=== PATIENT | male | born 1945 | race Caucasian/White ===

== ENCOUNTER → 2016-03-17 | Outpatient (CLI) | payer OTHER ==
[~2016-03-17] MED LIST: ACET-1256 PO; ALLO100T PO; ASPEC81 PO; ATOR10TA88 PO; DILT360C17 PO; LPR100 PO; LSX20 PO; POTA20TA16 PO; RANI150T3 PO; SPIR50TA PO; WARF5TAB7 PO; WARF7.5T4 PO
--- NOTE | 2016-03-17 13:30 | DIAGNOSTIC IMAGING REPORT ---
CHEST 2 VIEWS ROUTINE CLINICAL HISTORY: Fall. Chest pain with inspiration. COMPARISON STUDY: Chest radiograph October 10, 2015. FINDINGS: There is no pneumothorax or pleural effusion. Mild cardiomegaly is unchanged. There is no evidence of pulmonary edema. No consolidation is present. IMPRESSION: 1. No acute cardiopulmonary findings. 2. Mild cardiomegaly. Electronically signed by: Sumanth Amaya M.D. 03/17/2016 1:28 PM Dictated Date/Time: 03/17/2016 1:27 PM
== END | disposition home or self-care (01) ==
LOC: C.RAD 12:57
PROVIDERS: ATTEND Family Medicine
DX: R07.81 Pleurodynia (principal); R07.89 Other chest pain; I51.7 Cardiomegaly

== ENCOUNTER → 2016-04-04 | Outpatient (CLI) | payer OTHER ==
--- NOTE | 2016-04-04 14:47 | DIAGNOSTIC IMAGING REPORT ---
RIBS UNILATERAL WITH PA CHEST CLINICAL HISTORY: CHEST WALL PAIN R07.89;PLEURITUC CHEST PAIN R07.81 pain COMPARISON STUDY: 03/17/2016 FINDINGS: Findings of nondisplaced cortical fractures left eighth ninth and 10th ribs. Remaining ribs are unremarkable. No evidence pneumothorax. No evidence for cardiac enlargement. IMPRESSION: Nondisplaced cortical fractures left eighth ninth and 10th ribs. No evidence pneumothorax. Electronically signed by: Jaime Arredondo M.D. 04/04/2016 2:46 PM Dictated Date/Time: 04/04/2016 2:44 PM
== END | disposition home or self-care (01) ==
LOC: C.RAD 14:07
PROVIDERS: ATTEND Family Medicine
DX: R07.89 Other chest pain (principal); R07.81 Pleurodynia; S22.42XA Multiple fractures of ribs, left side, initial encounter for closed fracture; X58.XXXA Exposure to other specified factors, initial encounter

== ENCOUNTER → 2016-08-01 | Outpatient (CLI) | payer OTHER ==
[~2016-08-01] MED LIST changes: +ATOR10TA82 PO; -ATOR10TA88 PO
[2016-08-01 17:24] LABS: CHOLESTEROL/HDL RATIO 3.7
== END | disposition home or self-care (01) ==
LOC: C.LABBFT 12:50
PROVIDERS: ATTEND Internal Medicine Cardiovascular Disease
DX: I10 Essential (primary) hypertension (principal); E78.00 Pure hypercholesterolemia, unspecified

== ENCOUNTER → 2017-06-25 | Day surgery (SDC) | payer OTHER ==
[2017-06-18 10:52] VITALS: BMI 27.0
[~2017-06-25] VITALS: Ht 172.7 cm; Wt 80.0 kg
[~2017-06-25] MED LIST changes: +ALL300 PO; -ALLO100T PO; +AMT50 PO; -ASPEC81 PO; +ASPI81CH2 PO; +ATOR-24 PO; -ATOR10TA82 PO; +COLC1TAB25 PO; +LIDOCAINE HCL 2% 2 ML VIAL (20MG/ML) ONE; +MULTCHW PO; +POTA-639 PO; -POTA20TA16 PO; +PROPOFOL IV EMULSION 10 MG/ML 20 ML VIAL ONE; +SODIUM CHLORIDE 0.9% 500ML 500 ML IV ONE
[2017-06-25 13:31] VITALS: Ht 172.7 cm; Wt 80.0 kg
[2017-06-25 14:04] VITALS: TEMP 36.8
--- NOTE | 2017-06-25 14:32 | Endo History and Physical ---
History & Physical Date of Service: June 25, 2017. Chief Complaint: SCREENING Referring Physician: DR. RAYMOND/CAMERON LYON DR. History of Present Illness 72 yo CF who presents for screening colonoscopy. Past Medical History Arthritis, Anxiety, Hypertension, Other Past Surgical History Hx Cardiac Surgery: No Hx Internal Defibrillator: No Hx Pacemaker: No Hx Abdominal Surgery: No Hx of Implantable Prosthesis: No Hx Post-Op Nausea and Vomiting: No Hx Cancer Surgery: No Hx Thoracic Surgery: No Hx Orthopedic: No Hx Urinary Tract Surgery: No Family History None Social History Smoking Status: Never Smoker Hx Substance Use: No Hx Alcohol Use: Yes (A COUPLE BEERS/WK AND A SHOT OF DEREK MARIVEL ABOUT TWICE/ YR) Allergies Coded Allergies: No Known Allergies (Unverified , 06/25/17) Current Medications Reported Home Medications Medications Dose Route/Sig Max Daily Dose Days Date Category Dose Instructions Centrum Silver (Multiple Vitamins W/ Minerals) 1 Chw Chw 1 Tab PO DAILY 06/18/17 Reported Colchicine 0.6 Mg Tab 1 Tab PO DAILY PRN 06/18/17 Reported Elavil (Amitriptyline HCl) 50 Mg Tab 50 Mg PO HS 06/18/17 Reported Aspirin 81 Mg Chw 1 Tab PO DAILY 30 06/18/17 Reported Lipitor (Atorvastatin Calcium) 40 Mg Tab 1 Tab PO HS 90 06/18/17 Reported Allopurinol 300 Mg Tab 1 Tab PO DAILY 06/18/17 Reported Tylenol (Acetaminophen) 500 Mg Tab 1,000 Mg PO QAM 11/16/15 Reported Jantoven (Warfarin Sodium) 7.5 Mg Tab 7.5 Mg PO MWF 11/16/15 Reported Jantoven (Warfarin Sodium) 5 Mg Tab 5 Mg PO 4XWK 11/16/15 Reported THURSDAY, THURSDAY, THURSDAY AND THURSDAY Aldactazide 25MG/25MG (HCTZ/Spironolactone) 1 Tab Tab 1 Tab PO QAM 11/16/15 Reported Furosemide 20 Mg Tab 20 Mg PO DAILY 30 10/15/15 Rx Zantac (Ranitidine HCl) 150 Mg Tab 1 Tab PO BID 90 10/10/15 Reported Klor-Con (Potassium Chloride) 20 Meq Tabcr 20 Meq PO DAILY 10/10/15 Reported Cardizem Cd (Diltiazem Hcl Coated Beads) 360 Mg Cap 360 Mg PO DAILY 12/03/13 Rx Metoprolol Tartrate 100 Mg Tab 100 Mg PO BID 12/03/13 Rx Vital Signs Weight (Kilograms): 80.00 Height (Feet): 5 Height (Inches): 8 Date Time Temp Pulse Resp B/P (MAP) Pulse Ox O2 Delivery O2 Flow Rate FiO2 06/25/17 14:04 36.8 88 20 116/88 (97) 94 Room Air Physical Exam General Appearance: WD/WN, no apparent distress Respiratory/Chest: Auscultation: breath sounds normal Cardiovascular: Heart Auscultation: RRR Abdomen: Bowel Sounds: normal Inspection & Palpation: soft, non-distended, no tenderness, guarding & rebound Assessment and Plan Assessment: 72 yo CF who presents for screening colonoscopy. Plan: Proceed with colonoscopy.
--- NOTE | 2017-06-25 15:05 | Discharge Instructions ---
Endoscopy Patient Instructions Date / Procedure(s) Performed June 25, 2017. Colonoscopy Allergy Information Coded Allergies: No Known Allergies (Unverified , 06/25/17) Discharge Date / Findings June 25, 2017. Rectal polyp Diverticulosis Internal hemorrhoids Medication Instructions Stopped Medication(s): COUMADIN ASA OK to resume all medications today as prescribed Reported Home Medications Medications Dose Route/Sig Max Daily Dose Days Date Category Dose Instructions Centrum Silver (Multiple Vitamins W/ Minerals) 1 Chw Chw 1 Tab PO DAILY 06/18/17 Reported Colchicine 0.6 Mg Tab 1 Tab PO DAILY PRN 06/18/17 Reported Elavil (Amitriptyline HCl) 50 Mg Tab 50 Mg PO HS 06/18/17 Reported Aspirin 81 Mg Chw 1 Tab PO DAILY 30 06/18/17 Reported Lipitor (Atorvastatin Calcium) 40 Mg Tab 1 Tab PO HS 90 06/18/17 Reported Allopurinol 300 Mg Tab 1 Tab PO DAILY 06/18/17 Reported Tylenol (Acetaminophen) 500 Mg Tab 1,000 Mg PO QAM 11/16/15 Reported Jantoven (Warfarin Sodium) 7.5 Mg Tab 7.5 Mg PO MWF 11/16/15 Reported Jantoven (Warfarin Sodium) 5 Mg Tab 5 Mg PO 4XWK 11/16/15 Reported THURSDAY, THURSDAY, THURSDAY AND THURSDAY Aldactazide 25MG/25MG (HCTZ/Spironolactone) 1 Tab Tab 1 Tab PO QAM 11/16/15 Reported Furosemide 20 Mg Tab 20 Mg PO DAILY 30 10/15/15 Rx Zantac (Ranitidine HCl) 150 Mg Tab 1 Tab PO BID 90 10/10/15 Reported Klor-Con (Potassium Chloride) 20 Meq Tabcr 20 Meq PO DAILY 10/10/15 Reported Cardizem Cd (Diltiazem Hcl Coated Beads) 360 Mg Cap 360 Mg PO DAILY 12/03/13 Rx Metoprolol Tartrate 100 Mg Tab 100 Mg PO BID 12/03/13 Rx Provider Instructions Activity Restrictions - No exercising or heavy lifting for 24 hours. - Do not drink alcohol the day of the procedure. - Do not drive a car or operate machinery until the day after the procedure. - Do not make any important decisions or sign important papers in 24 hours after the procedure. Following Day: - Return to full activity which may include returning to work/school. Diet Start your diet with liquids and light foods (jello, soup, juice, toast). Then eat your usual diet if not nauseated. Treatment For Common After Affects For mild abdominal pain, bloating, or excessive gas: - Rest - Eat lightly - Lie on right side Follow-Up Information Follow-up with DR. RAYMOND/CAMERON LYON DR. as scheduled Anesthesia Information What You Should Know You have had a procedure that required some medicine to reduce anxiety and discomfort. This treatment is called moderate sedation. After receiving the treatment, you may be sleepy, but you will be able to breathe on your own. The effects of the treatment may last for several hours. Follow these instructions along with Activity/Diet recommendations noted above: * Do NOT do anything where dizziness or clumsiness would be dangerous. * Rest quietly at home today, then you can be up and about tomorrow. * Have a responsible person stay with you the rest of today. * You may have had an I.V. today. If so, you may take the dressing off later today. Recommendations Call your doctor if: * Trouble breathing * Continuous vomiting for more than 24 hours * Temperature above 101 degrees * Severe abdominal pain or bloating * Pain not relieved by pain medicine ordered * There is increased drainage or redness from any incision * A large amount of rectal bleeding greater than 2-3 tablespoons. (If you had a polyp/s removed or have hemorrhoids, a small amount of blood - from the rectum is to be expected.) * You have any unanswered questions or concerns. IN THE EVENT OF A SERIOUS EMERGENCY, GO TO THE NEAREST EMERGENCY ROOM Your discharge instructions were prepared by provider Leandro Maguire. Patient Instructions Signature Page Mathew Virk Patient (or Guardian) Signature/Date: I have read and understand the instructions given to me by my caregivers. Caregiver/RN/Doctor Signature/Date: The above-named patient and/or guardian has received patient instructions on this date. + Original Patient Signature Page (only) stays with chart. Please make copy for patient.
--- NOTE | 2017-06-25 15:09 | GI REPORT ---
Patient Name: Mathew Virk Procedure Date: 06/25/2017 2:38 PM Date of : 1945 Admit Type: Outpatient Age: 72 Gender: Male Attending MD: Leandro Maguire DO Procedure: Colonoscopy Providers: Leandro Maguire DO Referring MD: Kim Sung Indications: Screening for colorectal malignant neoplasm Medicines: Monitored Anesthesia Care Complications: No immediate complications. Estimated Blood Loss: Estimated blood loss: none. Procedure: Pre-Anesthesia Assessment: - Prior to the procedure, a History and Physical was performed, and patient medications and allergies were reviewed. The patient's tolerance of previous anesthesia was also reviewed. The risks and benefits of the procedure and the sedation options and risks were discussed with the patient. All questions were answered, and informed consent was obtained. Prior Anticoagulants: The patient last took aspirin 4 days and Coumadin (warfarin) 5 days prior to the procedure. ASA Grade Assessment: III - A patient with severe systemic disease. After reviewing the risks and benefits, the patient was deemed in satisfactory condition to undergo the procedure. After I obtained informed consent, the scope was passed under direct vision. Throughout the procedure, the patient's blood pressure, pulse, and oxygen saturations were monitored continuously. The scope was introduced through the anus and advanced to the terminal ileum. The colonoscopy was performed without difficulty. The patient tolerated the procedure well. The quality of the bowel preparation was good. The terminal ileum, ileocecal valve, appendiceal orifice, and rectum were photographed. Findings: The perianal and digital rectal examinations were normal. Multiple small-mouthed diverticula were found in the sigmoid colon. A 5 mm polyp was found in the rectum. The polyp was sessile. The polyp was removed with a hot snare. Resection and retrieval were complete. Non-bleeding internal hemorrhoids were found during retroflexion. The hemorrhoids were small. Impression: - Diverticulosis in the sigmoid colon. - One 5 mm polyp in the rectum, removed with a hot snare. Resected and retrieved. - Non-bleeding internal hemorrhoids. Recommendation: - Resume previous diet. - Continue present medications. - Repeat colonoscopy for surveillance based on pathology results. - Return to primary care physician as previously scheduled. Leandro Maguire DO 06/25/2017 3:09:30 PM This report has been signed electronically. Note Initiated On: 06/25/2017 2:38 PM Number of Addenda: 0 I attest to the content of the Intraoperative Record and orders documented therein, exceptions below {[id number]}
--- NOTE | 2017-06-25 15:10 | Anesthesiology Progress Note ---
Anesthesia Post Op Note Date & Time June 25, 2017 at 15:10 Vital Signs Pain Intensity: 0 Vital Signs Past 12 Hours Date Time Temp Pulse Resp B/P (MAP) Pulse Ox O2 Delivery O2 Flow Rate FiO2 06/25/17 15:04 87 20 110/81 (91) 94 Room Air 06/25/17 14:04 36.8 88 20 116/88 (97) 94 Room Air Notes Mental Status: alert / awake / arousable, participated in evaluation Pt Amnestic to Procedure: Yes Nausea / Vomiting: adequately controlled Pain: adequately controlled Airway Patency, RR, SpO2: stable & adequate BP & HR: stable & adequate Hydration State: stable & adequate Anesthetic Complications: no major complications apparent
[2017-06-25 15:21] VITALS: BP 117/86; PULSE 88; O2SAT 94
== END | disposition home or self-care (01) ==
LOC: C.GI 13:19
PROVIDERS: ATTEND Internal Medicine
DX: Z12.11 Encounter for screening for malignant neoplasm of colon (principal); K63.5 Polyp of colon; K57.30 Diverticulosis of large intestine without perforation or abscess without bleeding; K64.8 Other hemorrhoids; M19.90 Unspecified osteoarthritis, unspecified site; F41.9 Anxiety disorder, unspecified; I10 Essential (primary) hypertension; E78.5 Hyperlipidemia, unspecified; G47.33 Obstructive sleep apnea (adult) (pediatric); Z79.01 Long term (current) use of anticoagulants; Z86.718 Personal history of other venous thrombosis and embolism

== ENCOUNTER 2018-05-03 18:10 | Inpatient (IN) ==
[2018-05-03 21:00] LABS: Basophils # (auto) 0.01 K/uL (0-0.2); Basophils % (auto) 0.2 %; Eosinophils # (auto) 0.13 K/uL (0-0.5); Eosinophils % (auto) 2.2 %; Hemoglobin 15.6 g/dL (14.0-18.0); Lymphocytes # (auto) 1.51 K/uL (1.2-3.4); Lymphocytes % (auto) 25.9 %; Mean Corpuscular Hgb Conc 35.5 g/dL (32-36); Mean Corpuscular Volume 90.5 fL (80-100); Mean Platelet Volume 11.2 fL (7.4-10.4); Monocytes % (auto) 13.7 %; Neutrophils # (auto) 3.38 K/uL (1.4-6.5); Platelet Count 165 K/uL (130-400); RDW Coefficient of Variation 14.1 % (11.5-14.5); RDW Standard Deviation 46.1 fL (36.4-46.3); Red Blood Count 4.86 M/uL (4.7-6.1); White Blood Count 5.83 K/uL (4.8-10.8)
[2018-05-03 21:12] LABS: INR 1.1 (0.9-1.1); Partial Thromboplastin Ratio 1.1; Partial Thromboplastin Time 29.9 Seconds (21.0-31.0); Prothrombin Time 10.9 Seconds (9.0-12.0)
--- NOTE | 2018-05-03 21:15 | XRay Report ---
XR chest 1V portable CLINICAL HISTORY: gi bleed COMPARISON STUDY: Chest radiograph April 04, 2016. FINDINGS: Kyphotic positioning is noted. There is no pneumothorax or pleural effusion. There is no co nsolidation or evidence for pulmonary edema. Borderline cardiomegaly is unchanged. Degenerative lux es of both glenohumeral joints, more severe on the right, is again noted. IMPRESSION: No acute cardiopulmonary findings. Electronically signed by: Sumanth Amaya M.D. 05/03/2018 9:14 PM
[2018-05-03 21:16] LABS: Albumin Level 3.6 gm/dl (3.4-5.0); BUN Creatinine Ratio 22.4 (10-20); Creatinine Clr Calc Pharmacy 30.9 ml/min; Est GFR (African American) 24.7; Est GFR (Non-African American) 21.3; Potassium 4.1 mmol/L (3.5-5.1)
[2018-05-03 21:19] LABS: Bilirubin,Total 0.5 mg/dl (0.2-1); Globulin 3.6 gm/dl (2.5-4.0); Total Protein 7.2 gm/dl (6.4-8.2)
[2018-05-03] MEDS ORDERED: PANTOprazole 80 MG in DEXTROSE 5% 100 ML IV ONE (21:24)
[2018-05-03] MEDS ORDERED: PANTOPRAZOLE BOLUS/DRIP 1 EA IV STA (21:24)
[2018-05-03] MEDS ORDERED: PANTOprazole 40 MG in DEXTROSE 5% 100 ML IV SCH (21:30)
--- NOTE | 2018-05-03 23:06 | Emergency Department Note ---
Entered by Chelsea Piper acting as a scribe for ED Provider Note CHIEF COMPLAINT: GI bleed HISTORY OF PRESENT ILLNESS: The patient is a 72 year old male who presents to the Emergency Room with complaints of constant stomach upset, heart burn and reflux that started a few days ago. The patient reports he threw up Thursday. He notes he has diarrhea that is black and tarry. The patient reports he tried baking soda and pepto- bismol. The patient states he is on anticoagulation. He reports he has no history of ulcers or GI bleed. He states he has history of atrial fibrillation. The patient states he was sent here by [facility] because they were concerned for GI bleeding. Pt denies LOC, headache, fevers, chills, diaphoresis, visual changes, neck pain, chest pain, breathing difficulties, nausea, back pain, hematochezia, urinary symptoms, numbness, weakness, lymphadenopathy, rash, or other complaints. REVIEW OF SYSTEMS: See HPI for pertinent positives and negatives. A total of ten systems were reviewed and were otherwise negative. PMHx/PSHx: Pituitary tumor Atrial fibrillation with RVR Cellulitis Chest pain SOCIAL HISTORY: Patient lives at home. PHYSICAL EXAM: GENERAL: Awake, alert, well-appearing, in no distress HENT: Normocephalic, atraumatic. Oropharynx unremarkable. EYES: Normal conjunctiva. Sclera non-icteric. NECK: Inspection normal. Non-tender. Supple. No nuchal rigidity. FROM. No masses. RESPIRATORY: Clear to auscultation. No wheezes. No rales. Normal respiratory effort. CARDIAC: Normal rate. Normal rhythm. No murmurs. No rubs. Extremities warm and well perfused. Pulses equal. No JVD. GI: Soft, non-distended. Mild tenderness in the epigastrium. No rebound or guarding. No masses. RECTAL: Melanotic stool. Hemoccult positive MUSCULOSKELETAL: Atraumatic. Chest examination reveals no tenderness. The back is symmetrical on inspection without obvious abnormality. There is no CVA tenderness to palpation. No joint edema. LOWER EXTREMITIES: Calves are equal size bilaterally and non-tender. +1 edema. Chronic venous discoloration. NEURO: Normal sensorium. No sensory or motor deficits noted. SKIN: No rash or jaundice noted. EMERGENCY DEPARTMENT COURSE: 2022: Past medical records reviewed. The patient was evaluated in room A4A, and a complete history and physical examination were performed. 0: The patient is feeling better 2144: I reviewed the patient's case with Dr. Ricci, [facility] Hospitalist. She will evaluate the patient for further management. MEDICAL DECISION MAKING: Prior records/ancillary studies reviewed. Triage Nursing notes reviewed and agree them. The patient's history was concerning for possible gastrointestinal bleeding. Differential diagnosis: Etiologies such as diverticulosis, AVM, coagulopathy, colitis, inflammatory bowel disease, malignancy,Cora-Portillo tear, esophagitis, peptic ulcer disease, variceal bleed, gastritis, epistaxis, fissure, hemorrhoids, as well as others were entertained. Physical exam: As above. ER treatment provided: IV Protonix bolus and drip IV Zantac On reassessment the patient felt better. Diagnostics interpreted by me: ECG: A. fib. The labs revealed an unremarkable CBC and chemistry panel except for an elevated BUN and creatinine. Compared to prior this is concerning for AK I as well as possible upper GI bleed. Imaging studies: Chest x-ray negative. The patient has upper abdominal discomfort as well as melena stools. He has mild AK I. Further management in the hospital will be necessary given his use of anticoagulation and likely upper GI bleed. Consultation: A consultation was placed with the hospitalist. The case was discussed and diagnostics were reviewed. The patient was evaluated in the ER for further treatment. IMPRESSION: Upper GI bleed Acute kidney injury PLAN: Admit The scribe's documentation has been prepared under my direction and personally reviewed by me in its entirety. I confirm that the note above accurately ref lects all work, treatment, procedures, and medical decision making performed by me. Impression & Plan Upper gastrointestinal bleed, Acute kidney injury Past Med/Surg History Medical History HTN (hypertension) Heart disease Pituitary tumor (Chronic) Atrial fibrillation Diverticulosis GERD (gastroesophageal reflux disease) Gout Internal hemorrhoids Osteoarthritis Surgical History History of basal cell carcinoma excision Family History Other HTN (hypertension) Heart disease Social History Preferred Language: Mauritian Feels Safe at Home: Yes Smoking Status: Former smoker Hx Alcohol Use: Yes Hx Substance Use: No Results & Data Vital Signs Vital Signs - 24 hr 05/03/18 18:18 05/03/18 22:11 Temperature 36.4 C L Temperature Source Oral Sepsis Recent Fever Within 48 Hours No Sepsis New/Unexplained Change in Mental Status No Sepsis Action Taken by Nursing No Action Required Pulse Rate 49 L Pulse Rate [Finger] 55 L Pulse Rhythm Regular Pulse Strength Normal Respiratory Rate 20 17 Respiratory Effort / Characteristics Non-Labored Spontaneous Respiratory Depth Normal Respiratory Pattern Regular Blood Pressure 110/73 Blood Pressure [Right Arm] 100/63 Blood Pressure Mean 85 Blood Pressure Mean [Right Arm] 75 Blood Pressure Position Sitting Pulse Oximetry 94 96 Oxygen Delivery Method Room Air Room Air Home Medications Current Medication List: was personally reviewed by me Laboratory Data Attestation: I reviewed the patient's lab results. Result diagrams: 05/03/18 20:46 05/03/18 20:46 Lab Results 05/03/18 05/03/18 05/03/18 Range/Units 20:46 20:46 20:46 WBC 5.83 (4.8-10.8) K/uL RBC 4.86 (4.7-6.1) M/uL Hgb 15.6 (14.0-18.0) g/dL Hct 44.0 (42-52) % MCV 90.5 (80-100) fL MCH 32.1 (25-34) pg MCHC 35.5 (32-36) g/dL RDW Std Deviation 46.1 (36.4-46.3) fL RDW Coeff of Kalin 14.1 (11.5-14.5) % Plt Count 165 (130-400) K/uL MPV 11.2 H (7.4-10.4) fL Immature Gran % (Auto) 0.0 % Neut % (Auto) 58.0 % Lymph % (Auto) 25.9 % Andrews % (Auto) 13.7 % Eos % (Auto) 2.2 % Baso % (Auto) 0.2 % Immature Gran # (Auto) 0.00 (0.00-0.02) K/uL Neut # (Auto) 3.38 (1.4-6.5) K/uL Lymph # (Auto) 1.51 (1.2-3.4) K/uL Andrews # (Auto) 0.80 H (0.11-0.59) K/uL Eos # (Auto) 0.13 (0-0.5) K/uL Baso # (Auto) 0.01 (0-0.2) K/uL PT 10.9 (9.0-12.0) Seconds INR 1.1 (0.9-1.1) APTT 29.9 (21.0-31.0) Seconds PTT Ratio 1.1 Sodium 135 L (136-145) mmol/L Potassium 4.1 (3.5-5.1) mmol/L Chloride 103 (98-107) mmol/L Carbon Dioxide 23 (21-32) mmol/L Anion Gap 9.0 (3-11) BUN 64 H (7-18) mg/dl Creatinine 2.86 H (0.6-1.4) mg/dl Est Cr Clr Drug Dosing 30.9 ml/min Est GFR ( Amer) 24.7 Est GFR (Non-Af Amer) 21.3 BUN/Creatinine Ratio 22.4 H (10-20) Glucose 106 H (70-99) mg/dl Calcium 9.0 (8.5-10.1) mg/dl Total Bilirubin 0.5 (0.2-1) mg/dl AST 16 (15-37) U/L ALT 22 (12-78) U/L Alkaline Phosphatase 125 H (45-117) U/L Total Protein 7.2 (6.4-8.2) gm/dl Albumin 3.6 (3.4-5.0) gm/dl Globulin 3.6 (2.5-4.0) gm/dl Albumin/Globulin Ratio 1.0 (0.9-2) Blood Type Antibody Screen 05/03/18 Range/Units 20:46 WBC (4.8-10.8) K/uL RBC (4.7-6.1) M/uL Hgb (14.0-18.0) g/dL Hct (42-52) % MCV (80-100) fL MCH (25-34) pg MCHC (32-36) g/dL RDW Std Deviation (36.4-46.3) fL RDW Coeff of Kalin (11.5-14.5) % Plt Count (130-400) K/uL MPV (7.4-10.4) fL Immature Gran % (Auto) % Neut % (Auto) % Lymph % (Auto) % Andrews % (Auto) % Eos % (Auto) % Baso % (Auto) % Immature Gran # (Auto) (0.00-0.02) K/uL Neut # (Auto) (1.4-6.5) K/uL Lymph # (Auto) (1.2-3.4) K/uL Andrews # (Auto) (0.11-0.59) K/uL Eos # (Auto) (0-0.5) K/uL Baso # (Auto) (0-0.2) K/uL PT (9.0-12.0) Seconds INR (0.9-1.1) APTT (21.0-31.0) Seconds PTT Ratio Sodium (136-145) mmol/L Potassium (3.5-5.1) mmol/L Chloride (98-107) mmol/L Carbon Dioxide (21-32) mmol/L Anion Gap (3-11) BUN (7-18) mg/dl Creatinine (0.6-1.4) mg/dl Est Cr Clr Drug Dosing ml/min Est GFR ( Amer) Est GFR (Non-Af Amer) BUN/Creatinine Ratio (10-20) Glucose (70-99) mg/dl Calcium (8.5-10.1) mg/dl Total Bilirubin (0.2-1) mg/dl AST (15-37) U/L ALT (12-78) U/L Alkaline Phosphatase (45-117) U/L Total Protein (6.4-8.2) gm/dl Albumin (3.4-5.0) gm/dl Globulin (2.5-4.0) gm/dl Albumin/Globulin Ratio (0.9-2) Blood Type B Positive Antibody Screen NEGATIVE Administered Medications Pantoprazole Sodium 40 mg/ (Dextrose) 100 mls @ 20 mls/hr IV Q5H FE Stop: 06/02/18 21:29 Last Admin: 05/03/18 22:26 Dose: 20 mls/hr Documented by: [id number] Ranitidine HCl 50 mg/ Dextrose 102 mls @ 200 mls/hr IV Q8H FE Stop: 06/02/18 21:29 Last Admin: 05/03/18 22:33 Dose: 200 mls/hr Documented by: [id number] Discontinued Medications Pantoprazole Sodium 80 mg/ (Dextrose) 120 mls @ 400 mls/hr IV NOW ONE Stop: 05/03/18 21:41 Last Infusion: 05/03/18 22:40 Dose: 0 mls/hr Documented by: [id number] Admin: 05/03/18 22:04 Dose: 400 mls/hr Documented by: [id number] Pantoprazole Sodium (Protonix Bolus/Drip) 0 mls @ 1 mls/hr IV ONE STA Stop: 05/03/18 21:25 Last Infusion: 05/03/18 22:12 Dose: 0 mls/hr Documented by: [id number] Admin: 05/03/18 22:06 Dose: 1 mls/hr Documented by: [id number] Imaging Data Radiologist's Impression: Radiology results as stated below per my review and the radiologist's interpretation: XR chest 1V portable CLINICAL HISTORY: gi bleed COMPARISON STUDY: Chest radiograph April 04, 2016. FINDINGS: Kyphotic positioning is noted. There is no pneumothorax or pleural effusion. There is no consolidation or evidence for pulmonary edema. Borderline cardiomegaly is unchanged. Degenerative changes of both glenohumeral joints, more severe on the right, is again noted. IMPRESSION: No acute cardiopulmonary findings. Electronically signed by: Sumanth Amaya M.D. 05/03/2018 9:14 PM ECG Data Attestation: I personally reviewed and interpreted this ECG as follows: Indication: other (Upper GI bleed) Rate (beats per minute): 53 Rhythm: atrial fibrillation Findings: no PVC, no ST depression and no ST elevation Blood Pressure Blood Pressure Findings: Normal blood pressure Blood Pressure Disposition: did not require urgent referral Discharge Plan Visit Data Chief Complaint: GI Bleed Stated Complaint: POSSIBLE INTERNAL BLEEDING ED Provider: Hany Mccullough Discharge Problem: Upper gastrointestinal bleed, Acute kidney injury Patient Disposition: Being Evaluated by Hospitalist Forms Stand Alone Forms: My [facility] Prescriptions Prescriptions: No Action furosemide [Lasix] 40 mg tablet 40 mg PO DAILY RF: 0 atorvastatin [Lipitor] 40 mg tablet 40 mg PO DAILY RF: 0 metoprolol tartrate [Lopressor] 100 mg tablet 100 mg PO BID RF: 0 spironolacton-hydrochlorothiaz [Aldactazide] 25-25 mg tablet 1 tab PO DAILY RF: 0 diltiazem HCl [Cardizem CD] 360 mg capsule,extended release 24hr 360 mg PO DAILY RF: 0 potassium chloride [Klor-Con M20] 20 mEq tablet,ER particles/crystals 20 meq PO DAILY RF: 0 ranitidine HCl [Zantac] 150 mg tablet 150 mg PO BID RF: 0 allopurinol [Zyloprim] 300 mg tablet 300 mg PO DAILY RF: 0 acetaminophen [Tylenol] 325 mg Capsule 650 mg PO Q8 PRN (Reason: Fever Or Pain) RF: 0 Centrum Silver Men 300-600-300 mcg Tablet 1 tab PO DAILY RF: 0 Eliquis 5 mg tablet 5 mg PO BID RF: 0 colchicine 0.6 mg capsule 0.6 mg PO UD RF: 0 Referrals Referrals: PCP,NO [Primary Care Provider] - The scribe's documentation has been prepared under my direction and personally reviewed by me in its entirety. I confirm that the note above accurately reflects all work, treatment, procedures, and medical decision making performed by me.
--- NOTE | 2018-05-03 23:12 | History & Physical Report ---
Date of Service May 03, 2018 Assessment & Plan (1) Upper gastrointestinal bleed: Patient with three days of what sound to be gastroenteritis-type symptoms. Dark stools reported today, hemoccult positive in ER. He is presently bradycardic, blood pressure is 110/73. H/H acceptable at 15.6 and 44. No complaints of nausea or abdominal discomfort. Physical exam unremarkable. Ddx to include esophagitis/gastritis, possible Cora Portillo tear in setting of recent vomiting, lower GI sources include his known hemorrhoids and diverticuli. -Admit to medical floor with telemetry monitoring -Maintain two large bore PIVs -CBC q 8 hours, transfuse for active bleeding, symptomatic anemia or Hg < 8 -Protonix 40mg IV BID -Hold antihypertensives and rate controlling agents -Hold Eliquis -Patient should avoid NSAIDS, Advil PM while on Eliquis -GI consultation - patient is known to Dr. Maguire, appreciate assistance with this case (2) Atrial fibrillation: Patient presently bradycardic, asymptomatic. He is on Eliquis for anticoagulation as well as Metoprolol and Diltiazem for rate control -Hold Diltiazem and Metoprolol in setting of possible bleed -Hold Eliquis in setting of possible bleed -Monitor on telemetry (3) Acute kidney injury: BUN=64, Cr=2.86. Records from 2016 with BUN 31-39 and Cr 1.1 - 1.5. Patient reports recent vomiting and diarrhea as well as decreased PO intake and 3 diuretic agents. Suspect component of prerenal azotemia. He also appears to be slightly dry on clinical exam -NSS at 125mL/hr x 2 liters -Repeat BMP in AM -Avoid nephrotoxic agents -Hold Spironolactone/HCTZ, Lasix for now -Renal dosing where appropriate (4) HTN (hypertension): Blood pressure stable at present -Hold antihypertensive agents in setting of possible bleed -Continue to monitor BP (5) Gout: Chronic. Stable -Hold Allopurinol and Colchicine for now -Continue to monitor F/E/N - NSS at 125mL/hr x 2 liters, BMP in AM, NPO for now Ppx - Protonix BID, SCDs to bilateral LEs Code -Full per discussion with patient Dispo - Admit to med-tele History of Present Illness Chief Complaint: Possible GIB Primary Care Provider: NO PCP Mr. Virk is a pleasant 72yo male with history of HTN, AF on Eliquis, GERD presenting with possible GIB. Patient reports that on the AM of 05/01/18 around 01:30 he developed severe acid reflux. States that he had acid taste in his throat and burning in his esophagus and stomach as well as belching. He took his Ranitidine with minimal relief. Around 02:30 he developed nausea and vomiting as well as diarrhea. The diarrhea persisted throughout the weekend. He took Imodium as well as Pepto-Bismol with some relief. He states that his bowel movements became very dark today. He was seen at the [facility] in [place] and was told that his blood pressure was low and was instructed to come to the ER. Hemoccult stool POSITIVE in ER. Patient reports some mild chest tightness yesterday as well as some dizziness and lightheadedness reported today. Otherwise no complaints. No abdominal pain, nausea, vomiting or diarrhea at present. No CP/palpitations/SOB/dizziness. He has no history of prior GIB. Had a colonos copy performed in June 2017 which revealed internal hemorrhoids, sigmoid diverticuli and a hyperplastic rectal polyp. He drinks EtOH occasionally and takes Advil PM occasionally. ER Course: Protonix bolus and gtt, Ranitidine 50mg IV Allergies Allergy/AdvReac Type Severity Reaction Status Date / Time No Known Allergies Allergy Unknown Unverified 06/25/17 13:28 Home Medications Home Medications Medication Instructions Recorded Confirmed Type acetaminophen [Tylenol] 650 mg PO Q8 PRN 05/03/18 05/03/18 History allopurinol [Zyloprim] 300 mg PO DAILY 05/03/18 05/03/18 History apixaban [Eliquis] 5 mg PO BID 05/03/18 05/03/18 History atorvastatin [Lipitor] 40 mg PO DAILY 05/03/18 05/03/18 History colchicine 0.6 mg PO UD 05/03/18 05/03/18 History diltiazem HCl [Cardizem CD] 360 mg PO DAILY 05/03/18 05/03/18 History furosemide [Lasix] 40 mg PO DAILY 05/03/18 05/03/18 History metoprolol tartrate [Lopressor] 100 mg PO BID 05/03/18 05/03/18 History wxhutvia-yhm-IP-lycopen-lutein 1 tab PO DAILY 05/03/18 05/03/18 History [Centrum Silver Men] potassium chloride [Klor-Con M20] 20 meq PO DAILY 05/03/18 05/03/18 History ranitidine HCl [Zantac] 150 mg PO BID 05/03/18 05/03/18 History spironolacton-hydrochlorothiaz 1 tab PO DAILY 05/03/18 05/03/18 History [Aldactazide] Past Med/Surg History Medical History HTN (hypertension) Heart disease Pituitary tumor (Chronic) Atrial fibrillation Diverticulosis GERD (gastroesophageal reflux disease) Gout Internal hemorrhoids Osteoarthritis Surgical History History of basal cell carcinoma excision Family History Other HTN (hypertension) Heart disease Social History Preferred Language: Bahraini Feels Safe at Home: Yes Smoking Status: Former smoker Hx Alcohol Use: Yes Hx Substance Use: No Review of Systems All systems reviewed & are unremarkable except as noted in HPI & below Physical Exam Vital Signs (Past 24 Hours): Last Vital Signs Temp 36.4 C L 05/03/18 18:18 Pulse 55 L 05/03/18 22:11 Resp 17 05/03/18 22:11 BP 100/63 05/03/18 22:11 Pulse Ox 96 05/03/18 22:11 Physical Exam: General: patient resting comfortably, NAD, non-toxic in appearance, AA&O x 4 Skin: warm, dry, intact, no rashes or lesions HEENT: NC/AT, PERRL, EOMI, anicteric sclera, conjunctiva without injection, external ear normal to inspection and nontender, nares patent, DRY mucus membranes, poor dentition, no oropharyngeal lesions, neck supple, trachea midline, no LAD, no thyromegaly, no JVD Heart: +S1/S2, irregularly irregular, bradycardic, no m/r/g Lungs: equal air entry bilaterally, no rales/rhonchi/wheezes Abd: +BS, soft, NT/ND, no masses/organomegaly/ascites, no epigastric tenderness Ext: warm, large hands and feet, 2+ pulses in UE/LE bilaterally, no clubbing/cyanosis or edema, hemosiderin staining of bilateral LEs Neuro: nonfocal, patient AA&O x 4, speech intact, no facial droop, moving all extremities on command with equal strength 06/27 Results & Data Laboratory Results Lab Results 05/03/18 05/03/18 05/03/18 Range/Units 20:46 20:46 20:46 WBC 5.83 (4.8-10.8) K/uL RBC 4.86 (4.7-6.1) M/uL Hgb 15.6 (14.0-18.0) g/dL Hct 44.0 (42-52) % MCV 90.5 (80-100) fL MCH 32.1 (25-34) pg MCHC 35.5 (32-36) g/dL RDW Std Deviation 46.1 (36.4-46.3) fL RDW Coeff of Kalin 14.1 (11.5-14.5) % Plt Count 165 (130-400) K/uL MPV 11.2 H (7.4-10.4) fL Immature Gran % (Auto) 0.0 % Neut % (Auto) 58.0 % Lymph % (Auto) 25.9 % Len[place] % (Auto) 13.7 % Eos % (Auto) 2.2 % Baso % (Auto) 0.2 % Immature Gran # (Auto) 0.00 (0.00-0.02) K/uL Neut # (Auto) 3.38 (1.4-6.5) K/uL Lymph # (Auto) 1.51 (1.2-3.4) K/uL Lenoir # (Auto) 0.80 H (0.11-0.59) K/uL Eos # (Auto) 0.13 (0-0.5) K/uL Baso # (Auto) 0.01 (0-0.2) K/uL PT 10.9 (9.0-12.0) Seconds INR 1.1 (0.9-1.1) APTT 29.9 (21.0-31.0) Seconds PTT Ratio 1.1 Sodium 135 L (136-145) mmol/L Potassium 4.1 (3.5-5.1) mmol/L Chloride 103 (98-107) mmol/L Carbon Dioxide 23 (21-32) mmol/L Anion Gap 9.0 (3-11) BUN 64 H (7-18) mg/dl Creatinine 2.86 H (0.6-1.4) mg/dl Est Cr Clr Drug Dosing 30.9 ml/min Est GFR ( Amer) 24.7 Est GFR (Non-Af Amer) 21.3 BUN/Creatinine Ratio 22.4 H (10-20) Glucose 106 H (70-99) mg/dl Calcium 9.0 (8.5-10.1) mg/dl Total Bilirubin 0.5 (0.2-1) mg/dl AST 16 (15-37) U/L ALT 22 (12-78) U/L Alkaline Phosphatase 125 H (45-117) U/L Total Protein 7.2 (6.4-8.2) gm/dl Albumin 3.6 (3.4-5.0) gm/dl Globulin 3.6 (2.5-4.0) gm/dl Albumin/Globulin Ratio 1.0 (0.9-2) Blood Type Antibody Screen 05/03/18 Range/Units 20:46 WBC (4.8-10.8) K/uL RBC (4.7-6.1) M/uL Hgb (14.0-18.0) g/dL Hct (42-52) % MCV (80-100) fL MCH (25-34) pg MCHC (32-36) g/dL RDW Std Deviation (36.4-46.3) fL RDW Coeff of Kalin (11.5-14.5) % Plt Count (130-400) K/uL MPV (7.4-10.4) fL Immature Gran % (Auto) % Neut % (Auto) % Lymph % (Auto) % Lenoir % (Auto) % Eos % (Auto) % Baso % (Auto) % Immature Gran # (Auto) (0.00-0.02) K/uL Neut # (Auto) (1.4-6.5) K/uL Lymph # (Auto) (1.2-3.4) K/uL Lenoir # (Auto) (0.11-0.59) K/uL Eos # (Auto) (0-0.5) K/uL Baso # (Auto) (0-0.2) K/uL PT (9.0-12.0) Seconds INR (0.9-1.1) APTT (21.0-31.0) Seconds PTT Ratio Sodium (136-145) mmol/L Potassium (3.5-5.1) mmol/L Chloride (98-107) mmol/L Carbon Dioxide (21-32) mmol/L Anion Gap (3-11) BUN (7-18) mg/dl Creatinine (0.6-1.4) mg/dl Est Cr Clr Drug Dosing ml/min Est GFR ( Amer) Est GFR (Non-Af Amer) BUN/Creatinine Ratio (10-20) Glucose (70-99) mg/dl Calcium (8.5-10.1) mg/dl Total Bilirubin (0.2-1) mg/dl AST (15-37) U/L ALT (12-78) U/L Alkaline Phosphatase (45-117) U/L Total Protein (6.4-8.2) gm/dl Albumin (3.4-5.0) gm/dl Globulin (2.5-4.0) gm/dl Albumin/Globulin Ratio (0.9-2) Blood Type B Positive Antibody Screen NEGATIVE Diagnostic Findings XR chest 1V portable CLINICAL HISTORY: gi bleed COMPARISON STUDY: Chest radiograph April 04, 2016. FINDINGS: Kyphotic positioning is noted. There is no pneumothorax or pleural effusion. There is no consolidation or evidence for pulmonary edema. Borderline cardiomegaly is unchanged. Degenerative changes of both glenohumeral joints, more severe on the right, is again noted. IMPRESSION: No acute cardiopulmonary findings. Electronically signed by: Sumanth Amaya M.D. 05/03/2018 9:14 PM Dictated: 05/03/182112 Transcribed: 05/03/182112 --------- COLONOSCOPY 06/25/2017 - Performed by Dr. Reeves Case Findings: The perianal and digital rectal examinations were normal. Multiple small-mouthed diverticula were found in the sigmoid colon. A 5 mm polyp was found in the rectum. The polyp was sessile. The polyp was removed with a hot snare. Resection and retrieval were complete. Non-bleeding internal hemorrhoids were found during retroflexion. The hemorrhoids were small. Impression: - Diverticulosis in the sigmoid colon. - One 5 mm polyp in the rectum, removed with a hot snare. Resected and retrieved. - Non-bleeding internal hemorrhoids. Recommendation: - Resume previous diet. - Continue present medications. - Repeat colonoscopy for surveillance based on pathology results. - Return to primary care physician as previously scheduled. Leandro Maguire, DO 06/25/2017 3:09:30 PM This report has been signed electronically. Note Initiated On: 06/25/2017 2:38 PM Number of Addenda: 0 I attest to the content of the Intraoperative Record and orders documented therein, exceptions below {[id number]} Dictated: 06/25/17 1438 Signed: 06/25/17 1509 PATHOLOGY REVEALED HYPERPLASTIC POLYP. ECG Additional Comments: The study shows atrial fibrillation with slow ventricular response, 53bpm, normal axis and intervals, no acute ischemic changes Code Status & VTE Plan Code Status FULL VTE Prophylaxis Plan VTE Prophylaxis will be ordered: Yes Critical Care Time Critical Care Time: No (1) HTN (hypertension) Hypertension type: essential hypertension Qualified Code(s): I10 - Essential (primary) hypertension (2) Atrial fibrillation Atrial fibrillation type: unspecified Qualified Code(s): I48.91 - Unspecified atrial fibrillation (3) Gout Gout site: unspecified site Gout etiology: unspecified cause Chronicity: unspecified Qualified Code(s): M10.9 - Gout, unspecified
[2018-05-04] MEDS ORDERED: ONDANSETRON INJ 2 MG/ML 2 ML VIAL IV PRN (00:31)
[2018-05-04 00:50] LABS: Hematocrit (blood only) 43.4 % (42-52); Hemoglobin 15.4 g/dL (14.0-18.0); Mean Corpuscular Hgb Conc 35.5 g/dL (32-36); Mean Corpuscular Volume 91.4 fL (80-100); Mean Platelet Volume 11.4 fL (7.4-10.4); Platelet Count 166 K/uL (130-400); RDW Standard Deviation 46.9 fL (36.4-46.3); Red Blood Count 4.75 M/uL (4.7-6.1); White Blood Count 6.09 K/uL (4.8-10.8)
[2018-05-04] MEDS: SODIUM CHLORIDE 0.9% 1000ML 1,000 ML IV SCH ×2 (00:59→09:08)
[2018-05-04 07:03] LABS: Hematocrit (blood only) 40.5 % (42-52); Hemoglobin 14.3 g/dL (14.0-18.0); Mean Corpuscular Hgb Conc 35.3 g/dL (32-36); Mean Corpuscular Volume 90.2 fL (80-100); Mean Platelet Volume 11.1 fL (7.4-10.4); Platelet Count 142 K/uL (130-400); Red Blood Count 4.49 M/uL (4.7-6.1); White Blood Count 4.99 K/uL (4.8-10.8)
[2018-05-04 07:31] LABS: BUN Creatinine Ratio 28.6 (10-20); Calcium 8.3 mg/dl (8.5-10.1); Creatinine Clr Calc Pharmacy 42.5 ml/min; Est GFR (African American) 37.2; Est GFR (Non-African American) 32.1; Potassium 3.5 mmol/L (3.5-5.1)
[2018-05-04] MEDS: ALLOPURINOL 300 MG TAB PO SCH (09:07)
[2018-05-04] MEDS: ACETAMINOPHEN 325 MG TAB PO PRN (09:08)
[2018-05-04] MEDS: PANTOprazole 40 MG in SYRINGE 0 ML IV SCH ×2 (09:08→20:35)
--- NOTE | 2018-05-04 09:34 | Gastrointestinal Consultation ---
Date of Consultation May 04, 2018 Assessment & Plan (1) Heme positive stool: (2) Dark stools: Diff dx: esophagitis vs Cora-Portillo tear vs gastritis vs PUD vs other. 1. NPO for now. 2. EGD with Dr. Maguire today for further evaluation. 3. Reinforced importance of avoidance NSAIDs while using Eliquis. 4. Continue Protonix 40 mg IV BID. 5. Additional recommendations pending results of testing. Thank you for allowing us to participate in the care of this pleasant gentleman. If you have any questions or concerns, please do not hesitate to contact us. Supervising Physician Co-Signing Physician Notes Agree with TUSHAR Johnston as above Abd: Soft, NT, ND, +BS Proceed with EGD History of Present Illness Reason for Consultation: Possible GIB Requesting Physician: Dr. Ricci Attending Physician: Ike Gonzalez MD, PhD, [facility] History of Present Illness Patient is a pleasant 72 year-old male with a history of GERD, HTN and atrial fibrillation admitted with dark stools and heme positive stool in the ER. The patient reports that symptoms began early am on Thursday05/02/18. Prior to this, he reports having had a day of eating a spicy dill pickle and mandarin oranges, followed by drinking a beer and then having a fried fish dinner with coleslaw for supper. States he felt fine in the evening but was awaken at 1:30 am with severe pyrosis in the epigastric and chest regions, describing intense "burning". To attempt to alleviate symptoms, he reports taking 2 Ranitidine tablets as well as a glass of water mixed with baking soda. The symptoms did reduce but then he developed a sudden onset of urgent diarrhea and did have an emesis "of everything I ate that day". 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 On Thursday, he did use Pepto Bismol a nd Imodium to alleviate the diarrhea and presented to his PCP on Thursday morning for evaluation of symptoms. Due to the reported dark stools (although he was informed may be a side effect of Pepto Bismol) he should present to the ER as he is on Eliquis for a history of AFib. The patient also apparently is using Advil PM on occasion for sleep. Rare alcohol use. Laboratory testing on arrival: hemoglobin 15.6, hematocrit 44.0, BUN 64 and creatinine 2.86. Repeat testing this morning was hemoglobin 14.3, hematocrit 40.5, BUN 58 and creatinine 2.04. No family history of GI malignancy or IBD Patient did have a complete colonoscopy by Dr. Maguire in June of 2017. Findings of a hyperplastic polyp, internal hemorrhoids and diverticulosis. Allergies Allergy/AdvReac Type Severity Reaction Status Date / Time No Known Allergies Allergy Unknown Unverified 06/25/17 13:28 Home Medications Home Medications Medication Instructions Recorded Confirmed Type acetaminophen [Tylenol] 650 mg PO Q8 PRN 05/03/18 05/03/18 History allopurinol [Zyloprim] 300 mg PO DAILY 05/03/18 05/03/18 History apixaban [Eliquis] 5 mg PO BID 05/03/18 05/03/18 History atorvastatin [Lipitor] 40 mg PO DAILY 05/03/18 05/03/18 History colchicine 0.6 mg PO UD 05/03/18 05/03/18 History diltiazem HCl [Cardizem CD] 360 mg PO DAILY 05/03/18 05/03/18 History furosemide [Lasix] 40 mg PO DAILY 05/03/18 05/03/18 History metoprolol tartrate [Lopressor] 100 mg PO BID 05/03/18 05/03/18 History rzwzzyzm-ydj-SL-lycopen-lutein 1 tab PO DAILY 05/03/18 05/03/18 History [Centrum Silver Men] potassium chloride [Klor-Con M20] 20 meq PO DAILY 05/03/18 05/03/18 History ranitidine HCl [Zantac] 150 mg PO BID 05/03/18 05/03/18 History spironolacton-hydrochlorothiaz 1 tab PO DAILY 05/03/18 05/03/18 History [Aldactazide] Patient History Medical History HTN (hypertension) Heart disease Pituitary tumor (Chronic) Atrial fibrillation Diverticulosis GERD (gastroesophageal reflux disease) Gout Internal hemorrhoids Osteoarthritis Surgical History History of basal cell carcinoma excision Family History Other HTN (hypertension) Heart disease Social History Preferred Language: Tam[place] Communication Ability: Effective 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 Beliefs That Will Affect Care: None Current Living Situation: Alone Other Information That Helps Us Care for You: No Feels Safe at Home: Yes Safety Concerns: Feels Safe At This Time Smoking Status: Never smoker Hx Alcohol Use: Yes Hx Substance Use: No Review of Systems Constitutional: no fever and no chills Eyes: no problem reported Ear, Nose, Mouth, Throat: no dysphagia and no pain with swallowing Respiratory: no cough and no dyspnea Cardiovascular: no chest pain and no palpitations Gastrointestinal: as per Subjective / HPI Genitourinary (Male): no problem reported Musculoskeletal: + joint pain (right knee) BLE edema Integumentary: no rash and no pruritus Neurologic: + dizziness Psychiatric: no problem reported Physical Exam Vital Signs (Past 24 Hours): Last Vital Signs Temp 36.7 C 05/04/18 08:08 Pulse 73 05/04/18 08:08 Resp 18 05/04/18 08:08 BP 103/62 05/04/18 08:08 Pulse Ox 95 05/04/18 08:08 Constitutional: WD/WN, vitals as above Eyes: EOM intact bilaterally Neck: normal appearance Respiratory: normal respiratory effort, lungs clear to auscultation Cardiovascular: Rate/Rhythm: regular rate and regular rhythm Gastrointestinal (Abdomen): normal bowel sounds, soft, nontender, no hepatosplenomegaly Musculoskeletal: Extremities: + chronic stasis changes Psychiatric: Orientation: alert and oriented x 3
--- NOTE | 2018-05-04 12:35 | Anesthesiology Consultation ---
Date of Service May 04, 2018 Assessment & Plan (1) Encounter for pre-operative examination: Chart Review Chart Review: Acceptable Risk for Surgery and Patient NOT seen in Pre Admission Testing Consults Requested none History Surgery Operation Date: 05/04/18 08:30 Proposed Procedures p Esophagogastroduodenoscopy Dr Maguire - Leandro Hawkins Case, DO Height/Weight Height: 5 ft 8 in Weight: 120.1 kg Allergies Allergy/AdvReac Type Severity Reaction Status Date / Time No Known Allergies Allergy Unknown Unverified 06/25/17 13:28 Medications Home Medications Medication Instructions Recorded Confirmed Last Taken acetaminophen [Tylenol] 650 mg PO Q8 PRN 05/03/18 05/03/18 05/03/18 08:00 allopurinol [Zyloprim] 300 mg PO DAILY 05/03/18 05/03/18 05/03/18 08:00 apixaban [Eliquis] 5 mg PO BID 05/03/18 05/03/18 05/03/18 08:00 atorvastatin [Lipitor] 40 mg PO DAILY 05/03/18 05/03/18 05/03/18 08:00 colchicine 0.6 mg PO UD 05/03/18 05/03/18 Unknown diltiazem HCl [Cardizem CD] 360 mg PO DAILY 05/03/18 05/03/18 05/03/18 08:00 furosemide [Lasix] 40 mg PO DAILY 05/03/18 05/03/18 05/03/18 08:00 metoprolol tartrate [Lopressor] 100 mg PO BID 05/03/18 05/03/18 05/03/18 08:00 irxyxshi-wik-AK-lycopen-lutein 1 tab PO DAILY 05/03/18 05/03/18 Unknown [Centrum Silver Men] potassium chloride [Klor-Con M20] 20 meq PO DAILY 05/03/18 05/03/18 05/03/18 08:00 ranitidine HCl [Zantac] 150 mg PO BID 05/03/18 05/03/18 05/03/18 09:00 spironolacton-hydrochlorothiaz 1 tab PO DAILY 05/03/18 05/03/18 05/03/18 08:00 [Aldactazide] Active Medications Generic Name Dose Route Start Last Admin Trade Name Freq PRN Reason Stop Dose Admin Acetaminophen 650 mg 05/04/18 00:35 05/04/18 09:08 Tylenol PO 06/03/18 00:34 650 mg Q8H PRN Administration Pain or Fever Allopurinol 300 mg 05/04/18 09:00 05/04/18 09:07 Zyloprim PO 06/03/18 08:59 300 mg DAILY FE Administration Sodium Chloride 1,000 mls @ 125 mls/hr 05/04/18 00:45 05/04/18 09:08 Nss 1000ml IV 05/04/18 16:44 125 mls/hr .Q8H FE Administration Pantoprazole Sodium 40 mg/ 10 mls @ 5 mls/min 05/04/18 09:00 05/04/18 09:08 Syringe IV 06/03/18 08:59 5 mls/min BID FE Administration Past Medical History Medical History HTN (hypertension) Heart disease Pituitary tumor (Chronic) Atrial fibrillation Diverticulosis GERD (gastroesophageal reflux disease) Gout Internal hemorrhoids Osteoarthritis Past Family History Family History Other HTN (hypertension) Heart disease Past Surgical History Surgical History History of basal cell carcinoma excision Social History Smoking Status: Never smoker Do You Dip or Chew Tobacco: No Hx Alcohol Use: Yes Alcohol type: beer alcohol intake frequency: a few times a month Hx Substance Use: No Physical Exam Vital Signs Last Vital Signs Temp 36.8 C 05/04/18 11:19 Pulse 79 05/04/18 11:19 Resp 18 05/04/18 11:19 BP 95/62 L 05/04/18 11:19 Pulse Ox 94 05/04/18 11:19 Testing Electrocardiogram Date: 05/03/18 Findings: + AFIB @ (53) Chest X-Ray Date: 05/03/18 Findings: + NAD Laboratory Results 05/04/18 06:33 05/04/18 06:33 Blood Type B Positive 05/03/18 20:46 Antibody Screen NEGATIVE 05/03/18 20:46 PT 10.9 Seconds (9.0-12.0) 05/03/18 20:46 INR 1.1 (0.9-1.1) 05/03/18 20:46 APTT 29.9 Seconds (21.0-31.0) 05/03/18 20:46 05/04/18 05/04/18 11:07 07:52 POC Glucose 104 H 95
--- NOTE | 2018-05-04 13:50 | GI REPORT ---
Patient Name: Mathew Virk Procedure Date: 05/04/2018 1:38 PM Date of : 1945 Admit Type: Inpatient Age: 72 Gender: Male Attending MD: Leandro Maguire DO Procedure: Upper GI endoscopy Providers: Leandro Maguire DO Referring MD: Ike Gonzalez Indications: Melena Medicines: Monitored Anesthesia Care Complications: No immediate complications. Estimated Blood Loss: Estimated blood loss: none. Procedure: Pre-Anesthesia Assessment: - Prior to the procedure, a History and Physical was performed, and patient medications and allergies were reviewed. The patient's tolerance of previous anesthesia was also reviewed. The risks and benefits of the procedure and the sedation options and risks were discussed with the patient. All questions were answered, and informed consent was obtained. Prior Anticoagulants: The patient has taken Eliquis (apixaban), last dose was 1 day prior to procedure. ASA Grade Assessment: III - A patient with severe systemic disease. After reviewing the risks and benefits, the patient was deemed in satisfactory condition to undergo the procedure. After obtaining informed consent, the endoscope was passed under direct vision. Throughout the procedure, the patient's blood pressure, pulse, and oxygen saturations were monitored continuously. The scope was introduced through the mouth, and advanced to the second part of duodenum. The upper GI endoscopy was accomplished without difficulty. The patient tolerated the procedure well. Findings: A non-obstructing Schatzki ring was found at the gastroesophageal junction. A small hiatal hernia was present. The examined duodenum was normal. Impression: - Non-obstructing Schatzki ring. - Small hiatal hernia. - Normal examined duodenum. - No specimens collected. Recommendation: - Return patient to [facility] for ongoing care. - Advance diet as tolerated. - Continue present medications. Leandro Maguire DO 05/04/2018 1:49:51 PM This report has been signed electronically. Note Initiated On: 05/04/2018 1:38 PM Number of Addenda: 0 I attest to the content of the Intraoperative Record and orders documented therein, exceptions below {[id number]}
[2018-05-04] MEDS ORDERED: PROPOFOL IV EMULSION 10 MG/ML 20 ML VIAL IV ONE (13:55)
[2018-05-04] MEDS ORDERED: LIDOCAINE HCL 2% 2 ML VIAL/AMP(20MG/ML) INFIL ONE (13:55)
--- NOTE | 2018-05-04 14:01 | Anesthesiology Progress Note ---
Date of Service May 04, 2018 Anesthesia Post Procedure Vital Signs Vital Signs: Temp Pulse Pulse Resp BP BP Pulse Ox 05/04/18 12:38 36.3 C L 83 18 121/75 97 05/04/18 11:19 36.8 C 79 18 95/62 L 94 05/04/18 08:30 79 05/04/18 08:08 36.7 C 73 18 103/62 95 05/04/18 05:03 36.5 C 78 20 99/65 L 96 05/04/18 00:31 36.7 C 76 18 115/69 94 05/03/18 23:59 55 L 16 113/66 96 05/03/18 22:11 55 L 17 100/63 96 05/03/18 18:18 36.4 C L 49 L 20 110/73 94 Notes Mental Status: alert / awake / arousable Patient Amnestic to Procedure: Yes Nausea / Vomiting: adequately controlled Pain: adequately controlled Airway Patency, RR, SpO2: stable & adequate BP & HR: stable & adequate Hydration State: stable & adequate Anesthetic Complications: no major complications apparent and Pt Satisfied with anesthetic care
--- NOTE | 2018-05-04 15:42 | Hospitalist Progress Note ---
Date of Service May 04, 2018 Assessment & Plan (1) Upper gastrointestinal bleed: (2) Atrial fibrillation: (3) Acute kidney injury: (4) HTN (hypertension): (5) Gout: 72yo male with history of HTN, AF on Eliquis, GERD admitted on May 03, 2018 with possible GIB. Possible upper gastrointestinal bleed GI symptoms with nausea vomiting diarrhea and abdominal pain associated with dark stool Hemoccult positive EGD was done: A non-obstructing Schatzki ring was found at the gastroesophageal junction. A small hiatal hernia was present. The examined duodenum was normal. Impression: - Non-obstructing Schatzki ring. - Small hiatal hernia. - Normal examined duodenum. - No specimens collected. Recommendation: - Return patient to hospital vill[facility] for ongoing care. - Advance diet as tolerated. - Continue present medications. cont Protonix 40mg IV BID cont hold antihypertensives and rate controlling agents cont Hold Eliquis and should avoid NSAIDS, Advil PM while on Eliquis Atrial fibrillation: will resume Diltiazem and Metoprolol if bp stable cont Hold Eliquis in setting of possible bleed cont Monitor on telemetry Acute kidney failure, possible acute on chronic kidney failure, this patient Cr 1.1 - 1.5. Improving continue IV fluid, Avoid nephrotoxic agents, continue hold Spironolactone/HCTZ, Lasix for now Hypertension, stable Gout, Hold Allopurinol and Colchicine for now full Code Physical Exam Vital Signs (Past 24 Hours): Last Vital Signs Temp 36.5 C 05/04/18 14:34 Pulse 104 H 05/04/18 14:34 Resp 18 05/04/18 14:34 BP 106/72 05/04/18 14:34 Pulse Ox 96 05/04/18 14:34 (1) Gout Chronicity: unspecified Gout etiology: unspecified cause Gout site: unspecified site Qualified Code(s): M10.9 - Gout, unspecified (2) Atrial fibrillation Atrial fibrillation type: unspecified Qualified Code(s): I48.91 - Unspecified atrial fibrillation (3) HTN (hypertension) Hypertension type: essential hypertension Qualified Code(s): I10 - Essential (primary) hypertension
[2018-05-04 16:49] LABS: Hematocrit (blood only) 39.6 % (42-52); Hemoglobin 13.9 g/dL (14.0-18.0); Mean Corpuscular Hgb Conc 35.1 g/dL (32-36); Mean Corpuscular Volume 90.6 fL (80-100); Mean Platelet Volume 11.2 fL (7.4-10.4); Platelet Count 135 K/uL (130-400); RDW Coefficient of Variation 13.8 % (11.5-14.5); RDW Standard Deviation 45.5 fL (36.4-46.3); Red Blood Count 4.37 M/uL (4.7-6.1)
[2018-05-04] MEDS ORDERED: SODIUM CHLORIDE 0.65% NA SOLN 45 ML (OCEAN) PRN (18:58)
[2018-05-04] MEDS ORDERED: SODIUM CHLORIDE 0.65% NA SOLN 45 ML (OCEAN) ONE (19:32)
[2018-05-05] MEDS ORDERED: METOPROLOL TARTRATE 1 MG/ML VIAL IV PRN (01:03)
[2018-05-05] MEDS: PANTOprazole 40 MG in SYRINGE 0 ML IV SCH ×2 (08:09→20:06)
[2018-05-05] MEDS: ALLOPURINOL 300 MG TAB PO SCH (08:09)
[2018-05-05 08:50] LABS: Basophils # (auto) 0.01 K/uL (0-0.2); Basophils % (auto) 0.2 %; Eosinophils # (auto) 0.11 K/uL (0-0.5); Eosinophils % (auto) 2.6 %; Hematocrit (blood only) 40.5 % (42-52); Hemoglobin 14.3 g/dL (14.0-18.0); Immature Granulocytes # (auto) 0.01 K/uL (0.00-0.02); Immature Granulocytes % (auto) 0.2 %; Lymphocytes # (auto) 1.31 K/uL (1.2-3.4); Lymphocytes % (auto) 31.4 %; Mean Corpuscular Hgb Conc 35.3 g/dL (32-36); Mean Platelet Volume 10.7 fL (7.4-10.4); Monocytes # (auto) 0.44 K/uL (0.11-0.59); Monocytes % (auto) 10.6 %; Neutrophils # (auto) 2.29 K/uL (1.4-6.5); Platelet Count 131 K/uL (130-400); RDW Coefficient of Variation 13.9 % (11.5-14.5); RDW Standard Deviation 46.2 fL (36.4-46.3); Red Blood Count 4.45 M/uL (4.7-6.1); White Blood Count 4.17 K/uL (4.8-10.8)
[2018-05-05 09:11] LABS: BUN Creatinine Ratio 24.5 (10-20); Calcium 8.9 mg/dl (8.5-10.1); Creatinine Clr Calc Pharmacy 73.3 ml/min; Est GFR (Non-African American) 62.2; Magnesium 1.6 mg/dl (1.8-2.4); Potassium 3.5 mmol/L (3.5-5.1)
[2018-05-05] MEDS ORDERED: MAGNESIUM SULFATE / D5W 1 GM/100 ML BAG IV ONE (09:41)
[2018-05-05] MEDS: MAGNESIUM OXIDE 400 MG TAB PO SCH ×2 (10:33→20:07)
[2018-05-05] MEDS: dilTIAZem HCL 180 MG CAPCR PO SCH (10:33)
[2018-05-05] MEDS: METOPROLOL TARTRATE 100 MG TAB PO SCH ×2 (10:34→20:08)
[2018-05-05] MEDS: ATORVASTATIN 40 MG TAB PO SCH (10:34)
--- NOTE | 2018-05-05 11:22 | Anesthesiology Progress Note ---
Date of Service May 05, 2018 Anesthesia Post Procedure Vital Signs Vital Signs: Temp Pulse Pulse Resp BP BP Pulse Ox 05/05/18 08:10 108 H 05/05/18 07:59 37 C 86 16 116/71 97 05/05/18 05:28 36.7 C 108 H 20 141/97 H 93 05/05/18 01:54 111 H 125/74 05/05/18 01:40 126 H 141/82 H 05/05/18 01:00 142/84 H 05/05/18 00:45 175 H 05/05/18 00:31 37.0 C 100 H 20 101/63 95 05/05/18 00:00 117 H 05/04/18 19:17 36.7 C 81 20 111/74 95 05/04/18 16:16 81 05/04/18 14:34 36.5 C 104 H 18 106/72 96 05/04/18 14:21 81 18 113/71 98 05/04/18 14:10 79 18 110/76 98 05/04/18 13:55 85 16 96/67 L 96 05/04/18 12:38 36.3 C L 83 18 121/75 97 Notes Mental Status: alert / awake / arousable and participated in evaluation Patient Amnestic to Procedure: Yes Nausea / Vomiting: adequately controlled Pain: adequately controlled Airway Patency, RR, SpO2: stable & adequate BP & HR: stable & adequate Hydration State: stable & adequate Anesthetic Complications: no major complications apparent
[2018-05-05] MEDS: APIXABAN 5 MG TABLET PO SCH ×2 (13:27→20:07)
[2018-05-05] MEDS: MULTIVITAMIN TAB PO SCH (13:27)
--- NOTE | 2018-05-05 16:44 | Hospitalist Progress Note ---
Date of Service May 05, 2018 Assessment & Plan (1) Upper gastrointestinal bleed: (2) Atrial fibrillation: (3) Acute kidney injury: (4) HTN (hypertension): (5) Gout: 72yo male with history of HTN, AF on Eliquis, GERD admitted on May 03, 2018 with possible GIB. Possible upper gastrointestinal bleed GI symptoms with nausea vomiting diarrhea and abdominal pain associated with dark stool Hemoccult positive EGD was done: Per report in below, A non-obstructing Schatzki ring was found at the gastroesophageal junction. A small hiatal hernia was present. The examined duodenum was normal. Impression: - Non-obstructing Schatzki ring. - Small hiatal hernia. - Normal examined duodenum. - No specimens collected. Recommendation: - Return patient to hospital villare[facility] for ongoing care. - Advance diet as tolerated. - Continue present medications. H&H has been stable, no obvious anemia, will change Protonix to p.o., After discussed with patient the risk and benefit restarting Eliquis, and he is in the risk of rebleeding from the GI, Patient will need to take on a risk, change Protonix 40mg IV BID cont hold antihypertensives and rate controlling agents Has advised patient should avoid NSAIDS, Advil while on Eliquis Atrial fibrillation: Rate controlled, Continue diltiazem and Metoprolol Restart Eliquis in setting of possible bleed, follow-up on lab tomorrow morning Acute kidney failure, possible acute on chronic kidney failure, this patient basie line Cr 1.1 - 1.5. Improving continue IV fluid, Avoid nephrotoxic agents, continue hold Spironolactone/HCTZ, Lasix for now Hypertension, stable Gout, Hold Allopurinol and Colchicine for now full Code , may resume allopurinol but hold colchicine upon discharge Subjective Reports tired and fatigued, otherwise doing well, tolerate diet, Denies fever chill, denies cough sputum shortness of breath, Denies nausea vomiting abdominal pain diarrhea constipation, Denies facial droop or slurry speeches, denies Dysuria urgency and frequency's Physical Exam Vital Signs (Past 24 Hours): Last Vital Signs Temp 37.0 C 05/05/18 14:43 Pulse 84 05/05/18 16:00 Resp 18 05/05/18 14:43 BP 104/68 05/05/18 14:43 Pulse Ox 95 05/05/18 14:43 Physical Exam: Head was atraumatic pupils equal round response to the night, HEENT: PERRL, EOMI, anicteric sclera, conjunctiva without injection, neck supple, trachea midline, no LAD, no thyromegaly, no JVD Heart: +S1/S2, irregularly irregular, bradycardic, no m/r/g Lungs: equal air entry bilaterally, no rales/rhonchi/wheezes Abd: +BS, soft, NT/ND, no masses/organomegaly/ascites, no epigastric tenderness Ext: warm, large hands and feet, 2+ pulses in UE/LE bilaterally, no clubbing/cyanosis or edema, hemosiderin staining of bilateral LEs Neuro: nonfocal, patient AA&O x 4, speech intact, no facial droop, moving all extremities on command with equal strength 5/5 Results & Data Laboratory Results Laboratory Results - last 24 hr 05/04/18 05/05/18 05/05/18 16:29 08:38 08:38 WBC 4.10 L 4.17 L RBC 4.37 L 4.45 L Hgb 13.9 L 14.3 Hct 39.6 L 40.5 L MCV 90.6 91.0 MCH 31.8 32.1 MCHC 35.1 35.3 RDW Std Deviation 45.5 46.2 RDW Coeff of Kalin 13.8 13.9 Plt Count 135 131 MPV 11.2 H 10.7 H Immature Gran % (Auto) 0.2 Neut % (Auto) 55.0 Lymph % (Auto) 31.4 [place] % (Auto) 10.6 Eos % (Auto) 2.6 Baso % (Auto) 0.2 Immature Gran # (Auto) 0.01 Neut # (Auto) 2.29 Lymph # (Auto) 1.31 [place] # (Auto) 0.44 Eos # (Auto) 0.11 Baso # (Auto) 0.01 Sodium 138 Potassium 3.5 Chloride 105 Carbon Dioxide 26 Anion Gap 7.0 BUN 29 H Creatinine 1.18 D Est Cr Clr Drug Dosing 73.3 Est GFR ( Amer) 72.0 Est GFR (Non-Af Amer) 62.2 BUN/Creatinine Ratio 24.5 H Glucose 105 H Calcium 8.9 Magnesium 1.6 L (1) Atrial fibrillation Atrial fibrillation type: unspecified Qualified Code(s): I48.91 - Unspecified atrial fibrillation (2) HTN (hypertension) Hypertension type: essential hypertension Qualified Code(s): I10 - Essential (primary) hypertension (3) Gout Gout site: unspecified site Gout etiology: unspecified cause Chronicity: unspecified Qualified Code(s): M10.9 - Gout, unspecified
[2018-05-05] MEDS: ACETAMINOPHEN 325 MG TAB PO PRN (18:26)
[2018-05-06] MEDS: ACETAMINOPHEN 325 MG TAB PO PRN (04:29)
[2018-05-06] MEDS: dilTIAZem HCL 180 MG CAPCR PO SCH (08:02)
[2018-05-06] MEDS: ALLOPURINOL 300 MG TAB PO SCH (08:02)
[2018-05-06] MEDS: METOPROLOL TARTRATE 100 MG TAB PO SCH (08:02)
[2018-05-06] MEDS: ATORVASTATIN 40 MG TAB PO SCH (08:02)
[2018-05-06] MEDS: MULTIVITAMIN TAB PO SCH (08:02)
[2018-05-06] MEDS: MAGNESIUM OXIDE 400 MG TAB PO SCH (08:02)
[2018-05-06] MEDS: APIXABAN 5 MG TABLET PO SCH (08:02)
[2018-05-06] MEDS: PANTOprazole 40 MG in SYRINGE 0 ML IV SCH (08:03)
[2018-05-06 08:56] LABS: Basophils # (auto) 0.02 K/uL (0-0.2); Basophils % (auto) 0.4 %; Hematocrit (blood only) 40.7 % (42-52); Hemoglobin 14.1 g/dL (14.0-18.0); Immature Granulocytes # (auto) 0.01 K/uL (0.00-0.02); Immature Granulocytes % (auto) 0.2 %; Lymphocytes # (auto) 1.26 K/uL (1.2-3.4); Lymphocytes % (auto) 25.3 %; Mean Corpuscular Volume 91.5 fL (80-100); Mean Platelet Volume 10.9 fL (7.4-10.4); Monocytes # (auto) 0.36 K/uL (0.11-0.59); Monocytes % (auto) 7.2 %; Neutrophils # (auto) 3.24 K/uL (1.4-6.5); Neutrophils % (auto) 64.9 %; Platelet Count 147 K/uL (130-400); RDW Coefficient of Variation 13.8 % (11.5-14.5); Red Blood Count 4.45 M/uL (4.7-6.1); White Blood Count 4.99 K/uL (4.8-10.8)
[2018-05-06 09:01] LABS: Mean Corpuscular Hgb Conc 34.6 g/dL (32-36)
[2018-05-06 09:16] LABS: BUN Creatinine Ratio 20.3 (10-20); Calcium 8.8 mg/dl (8.5-10.1); Creatinine Clr Calc Pharmacy 76.8 ml/min; Est GFR (African American) 75.9; Est GFR (Non-African American) 65.5; Magnesium 1.7 mg/dl (1.8-2.4); Potassium 3.9 mmol/L (3.5-5.1)
[2018-05-06 09:45] LABS: BUN Creatinine Ratio 21.1 (10-20); Calcium 8.6 mg/dl (8.5-10.1); Creatinine Clr Calc Pharmacy 78.9 ml/min; Est GFR (African American) 78.4; Est GFR (Non-African American) 67.7; Magnesium 1.6 mg/dl (1.8-2.4); Potassium 3.6 mmol/L (3.5-5.1)
[2018-05-06] MEDS ORDERED: MAGNESIUM SULFATE / D5W 1 GM/100 ML BAG IV ONE (12:00)
--- NOTE | 2018-05-06 16:22 | Hospitalist Progress Note ---
Date of Service May 05, 2018 Assessment & Plan (1) Upper gastrointestinal bleed: (2) Atrial fibrillation: (3) Acute kidney injury: (4) HTN (hypertension): (5) Gout: 72yo male with history of HTN, AF on Eliquis, GERD admitted on May 03, 2018 with possible GIB. Possible upper gastrointestinal bleed GI symptoms with nausea vomiting diarrhea and abdominal pain associated with dark stool Hemoccult positive prior to admission EGD was done: Per report in below, A non-obstructing Schatzki ring was found at the gastroesophageal junction. A small hiatal hernia was present. The examined duodenum was normal. Impression: - Non-obstructing Schatzki ring. - Small hiatal hernia. - Normal examined duodenum. - No specimens collected. Recommendation: - Return patient to hospital villare[facility] for ongoing care. - Advance diet as tolerated. - Continue present medications. H&H has been stable, no obvious anemia, has changed Protonix to p.o., After discussed with patient the risk and benefit restarting Eliquis yesterday, H&H has been stable, no sign of bleeding, will restart blood pressure medicine upon discharge Has advised patient should avoid NSAIDS, Advil while on Eliquis Atrial fibrillation: Rate controlled, Continue diltiazem and Metoprolol Acute kidney failure, possible acute on chronic kidney failure, this patient basie line Cr 1.1 - 1.5. Today's creatinine is in baseline, Restart Spironolactone/HCTZ, Lasix at discharge Hypertension, stable Gout, restart allopurinol and hold colchicine for now full Code , I have given prescription of Protonix for 2 week, follow up with your pcp to see if need to continue Subjective at discharge Doing well, tolerate diet, Denies fever chill, denies cough sputum shortness of breath, Denies nausea vomiting abdominal pain diarrhea constipation, Denies facial droop or slurry speeches, denies Dysuria urgency and frequency's Physical Exam at discharge Head was atraumatic pupils equal round response to the light HEENT: PERRL, EOMI, anicteric sclera, conjunctiva without injection, neck supple, trachea midline, no LAD, no thyromegaly, no JVD Heart: +S1/S2, irregularly irregular, bradycardic, no m/r/g Lungs: equal air entry bilaterally, no rales/rhonchi/wheezes Abd: +BS, soft, NT/ND, no masses/organomegaly/ascites, no epigastric tenderness Ext: warm, large hands and feet, 2+ pulses in UE/LE bilaterally, no clubbing/cyanosis or edema, hemosiderin staining of bilateral LEs Neuro: nonfocal, patient AA&O x 4, speech intact, no facial droop, moving all extremities on command with equal strength 5/5 Lab data was at discharge: Laboratory Results - last 24 hr 05/06/18 05/06/18 05/06/18 06:19 08:41 08:41 WBC 4.99 RBC 4.45 L Hgb 14.1 Hct 40.7 L MCV 91.5 MCH 31.7 MCHC 34.6 RDW Std Deviation 46.0 RDW Coeff of Kalin 13.8 Plt Count 147 MPV 10.9 H Immature Gran % (Auto) 0.2 Neut % (Auto) 64.9 Lymph % (Auto) 25.3 [place] % (Auto) 7.2 Eos % (Auto) 2.0 Baso % (Auto) 0.4 Immature Gran # (Auto) 0.01 Neut # (Auto) 3.24 Lymph # (Auto) 1.26 [place] # (Auto) 0.36 Eos # (Auto) 0.10 Baso # (Auto) 0.02 Sodium 137 139 Potassium 3.6 3.9 Chloride 104 106 Carbon Dioxide 25 26 Anion Gap 8.0 8.0 BUN 23 H 23 H Creatinine 1.10 1.13 Est Cr Clr Drug Dosing 78.9 76.8 Est GFR ( Amer) 78.4 75.9 Est GFR (Non-Af Amer) 67.7 65.5 BUN/Creatinine Ratio 21.1 H 20.3 H Glucose 92 122 H Calcium 8.6 8.8 Magnesium 1.6 L 1.7 L Subjective Reports tired and fatigued, otherwise doing well, tolerate diet, Denies fever chill, denies cough sputum shortness of breath, Denies nausea vomiting abdominal pain diarrhea constipation, Denies facial droop or slurry speeches, denies Dysuria urgency and frequency's Physical Exam Vital Signs (Past 24 Hours): Last Vital Signs Temp 37.0 C 05/05/18 14:43 Pulse 84 05/05/18 16:00 Resp 18 05/05/18 14:43 BP 104/68 05/05/18 14:43 Pulse Ox 95 05/05/18 14:43 (1) Atrial fibrillation Atrial fibrillation type: unspecified Qualified Code(s): I48.91 - Unspecified atrial fibrillation (2) HTN (hypertension) Hypertension type: essential hypertension Qualified Code(s): I10 - Essential (primary) hypertension (3) Gout Gout site: unspecified site Gout etiology: unspecified cause Chronicity: unspecified Qualified Code(s): M10.9 - Gout, unspecified
--- NOTE | 2018-05-07 18:27 | Discharge Summary ---
Date of Service May 07, 2018 Admission HPI Per Admitting Provider Mr. Virk is a pleasant 72yo male with history of HTN, AF on Eliquis, GERD presenting with possible GIB. Patient reports that on the AM of 05/01/18 around 01:30 he developed severe acid reflux. States that he had acid taste in his throat and burning in his esophagus and stomach as well as belching. He took his Ranitidine with minimal relief. Around 02:30 he developed nausea and vomiting as well as diarrhea. The diarrhea persisted throughout the weekend. He took Imodium as well as Pepto-Bismol with some relief. He states that his bowel movements became very dark today. He was seen at the [facility] in [place] and was told that his blood pressure was low and was instructed to come to the ER. Hemoccult stool POSITIVE in ER. Patient reports some mild chest tightness yesterday as well as some dizziness and lightheadedness reported today. Otherwise no complaints. No abdominal pain, nausea, vomiting or diarrhea at present. No CP/palpitations/SOB/dizziness. He has no history of prior GIB. Had a colonoscopy performed in June 2017 which revealed internal hemorrhoids, sigmoid diverticuli and a hyperplastic rectal polyp. He drinks EtOH occasionally and takes Advil PM occasionally. ER Course: Protonix bolus and gtt, Ranitidine 50mg IV Principal Diagnosis no Discharge Data Allergies Allergy/AdvReac Type Severity Reaction Status Date / Time No Known Allergies Allergy Unknown Unverified 06/25/17 13:28 Consultations 05/04/18 00:31 Consult Gastroenterology Routine Procedures Performed Operation Date: 05/04/18 08:30 Actual Procedures p Esophagogastroduodenoscopy - Leandro Hawkins Case, DO Hospital Course (1) Upper gastrointestinal bleed: (2) Atrial fibrillation: (3) Acute kidney injury: (4) HTN (hypertension): (5) Gout: 72yo male with history of HTN, AF on Eliquis, GERD admitted on May 03, 2018 with possible GIB. Possible upper gastrointestinal bleed GI symptoms with nausea vomiting diarrhea and abdominal pain associated with dark stool Hemoccult positive prior to admission EGD was done: Per report in below, A non-obstructing Schatzki ring was found at the gastroesophageal junction. A small hiatal hernia was present. The examined duodenum was normal. Impression: - Non-obstructing Schatzki ring. - Small hiatal hernia. - Normal examined duodenum. - No specimens collected. Recommendation: - Return patient to hospital villareal for ongoing care. - Advance diet as tolerated. - Continue present medications. H&H has been stable, no obvious anemia, has changed Protonix to p.o., After discussed with patient the risk and benefit restarting Eliquis yesterday, H&H has been stable, no sign of bleeding, will restart blood pressure medicine upon discharge Has advised patient should avoid NSAIDS, Advil while on Eliquis Atrial fibrillation: Rate controlled, Continue diltiazem and Metoprolol Acute kidney failure, possible acute on chronic kidney failure, this patient basie line Cr 1.1 - 1.5. Today's creatinine is in baseline, Restart Spironolactone/HCTZ, Lasix at discharge Hypertension, stable Gout, restart allopurinol and hold colchicine for now full Code , I have given prescription of Protonix for 2 week, follow up with your pcp to see if need to continue Subjective at discharge Doing well, tolerate diet, Denies fever chill, denies cough sputum shortness of breath, Denies nausea vomiting abdominal pain diarrhea constipation, Denies facial droop or slurry speeches, denies Dysuria urgency and frequency's Physical Exam at discharge Head was atraumatic pupils equal round response to the light HEENT: PERRL, EOMI, anicteric sclera, conjunctiva without injection, neck supple, trachea midline, no LAD, no thyromegaly, no JVD Heart: +S1/S2, irregularly irregular, bradycardic, no m/r/g Lungs: equal air entry bilaterally, no rales/rhonchi/wheezes Abd: +BS, soft, NT/ND, no masses/organomegaly/ascites, no epigastric tenderness Ext: warm, large hands and feet, 2+ pulses in UE/LE bilaterally, no clubbing/cyanosis or edema, hemosiderin staining of bilateral LEs Neuro: nonfocal, patient AA&O x 4, speech intact, no facial droop, moving all extremities on command with equal strength 5/5 Lab data was at discharge: Laboratory Results - last 24 hr 05/06/18 05/06/18 05/06/18 06:19 08:41 08:41 WBC 4.99 RBC 4.45 L Hgb 14.1 Hct 40.7 L MCV 91.5 MCH 31.7 MCHC 34.6 RDW Std Deviation 46.0 RDW Coeff of Kalin 13.8 Plt Count 147 MPV 10.9 H Immature Gran % (Auto) 0.2 Neut % (Auto) 64.9 Lymph % (Auto) 25.3 Ellis % (Auto) 7.2 Eos % (Auto) 2.0 Baso % (Auto) 0.4 Immature Gran # (Auto) 0.01 Neut # (Auto) 3.24 Lymph # (Auto) 1.26 Ellis # (Auto) 0.36 Eos # (Auto) 0.10 Baso # (Auto) 0.02 Sodium 137 139 Potassium 3.6 3.9 Chloride 104 106 Carbon Dioxide 25 26 Anion Gap 8.0 8.0 BUN 23 H 23 H Creatinine 1.10 1.13 Est Cr Clr Drug Dosing 78.9 76.8 Est GFR ( Amer) 78.4 75.9 Est GFR (Non-Af Amer) 67.7 65.5 BUN/Creatinine Ratio 21.1 H 20.3 H Glucose 92 122 H Calcium 8.6 8.8 Magnesium 1.6 L 1.7 L Discharge instruction you Possible have upper gastrointestinal bleed EGD was done: showed Non-obstructing Schatzki ring, No specimens collected. I will continue Protonix for 2 week, follow up with your pcp to see if need to continue restarting Eliquis, you are in the risk of rebleeding from the GI, should avoid NSAIDS, Advil while on Eliquis I did continue Colchicine for now Total Time Total Time Spent Total Time Spent (In Minutes): 35 Discharge Plan Discharge Items Patient Disposition: Home - Self-Care Reason For Visit: ?GIB Discharge Diagnosis: possible GI bleeding Condition: Fair Discharge Goals: Decrease discomfort, Diagnostic testing, Improve disease control, Learn about illness and Therapeutic intervention Activity: Resume your previous activity Non-emergency contact: Primary Care Provider Call non-emergency contact if: you have any medication questions Follow-up/Referrals: Bert Bass MD [Outside Practitioners] - 05/11/18 10:45 am (Please, follow up at [facility] in [place] with Dr. Bert Bass on ThursdayMay 11 at 10:45 am. *If you need to change this appointment, call the office at [phone].) Diet: [facility] Provider Instructions: you Possible have upper gastrointestinal bleed EGD was done: showed Non-obstructing Schatzki ring, No specimens collected. I will continue Protonix for 2 week, follow up with your pcp to see if need to continue restarting Eliquis, you are in the risk of rebleeding from the GI, should avoid NSAIDS, Advil while on Eliquis I did continue Colchicine for now you need to follow up with your primary care physician in 1 week, - take medication as instructed, never overdose or any misuse, or take with alcohol, because misuse of medicine may cause organ damage or , call me, or your primary care physician if have questions of discharge medicaitons. - call your primary care physician, or go to local emergency room if has any fever/chill, chest pain, shortness of breathing, nausea/vomiting/abdominal pain, facial droop/slurry speech/local weakness, or if has any questions. - fall precaution - diet as instructed - you need to follow up with your subspecialist, such as Dr. Maguire Prescriptions: New magnesium oxide 400 mg (241.3 mg magnesium) Tablet 400 mg PO BID 7 Days Qty: 14 RF: 0 pantoprazole [Protonix] 40 mg tablet,delayed release (DR/EC) 40 mg PO DAILY Qty: 14 RF: 0 Continued furosemide [Lasix] 40 mg tablet 40 mg PO DAILY RF: 0 atorvastatin [Lipitor] 40 mg tablet 40 mg PO DAILY RF: 0 metoprolol tartrate [Lopressor] 100 mg tablet 100 mg PO BID RF: 0 spironolacton-hydrochlorothiaz [Aldactazide] 25-25 mg tablet 1 tab PO DAILY RF: 0 diltiazem HCl [Cardizem CD] 360 mg capsule,extended release 24hr 360 mg PO DAILY RF: 0 potassium chloride [Klor-Con M20] 20 mEq tablet,ER particles/crystals 20 meq PO DAILY RF: 0 ranitidine HCl [Zantac] 150 mg tablet 150 mg PO BID RF: 0 allopurinol [Zyloprim] 300 mg tablet 300 mg PO DAILY RF: 0 acetaminophen [Tylenol] 325 mg Capsule 650 mg PO Q8 PRN (Reason: Fever Or Pain) RF: 0 Centrum Silver Men 300-600-300 mcg Tablet 1 tab PO DAILY RF: 0 Eliquis 5 mg tablet 5 mg PO BID RF: 0 Discontinued colchicine 0.6 mg capsule 0.6 mg PO UD RF: 0 Stand-Alone Forms: [facility] Discharge Orders: Discharge Order (Routine); Ordered 05/06/18 Ordered By: Ike Gonzalez Admission Data Admit Date/Time: 05/03/18 22:32 Attending Provider: Ike Gonzalez Admit Provider: Jeanne Ricci Primary Care Provider: PCP,NO Other Providers: Leandro Maguire ; Jeanne Ricci Service: Telemetry Medical Other Interventions: Discharge Summary Assessment (RN) Last Done: 05/06/18 14:00 DC Date/Time DO NOT enter until pt leaves facility: 05/06/18 15:41
== END 2018-05-06 15:41 | disposition home or self-care (01) | DRG 378 ==
LOC: ED 18:10 → 2W 22:32 → SUATTDRO 22:32 → 2W 23:59

== ENCOUNTER 2018-09-15 14:26 | Inpatient (IN) ==
--- OUTSIDE RECORDS SUMMARY | 2018-09-15 14:28 | External Medical Summary | Continuity of Care Document ---
:1945 Author Name Sukh Pinto, Provider Address Unavailable Unavailable , Care Team Providers Name Role Phone Kaylen Dunn PA-C Unavailable [email or web address] Joseph Pinto, [email or web address] ACEVEDO Unavailable Unavailable Unavailable Unavailable Unavailable Problems Obstructive sleep apnea (327.23) (G47.33) Ear infection (382.9) (H66.90) Esophageal reflux (530.81) (K21.9) Chest pain (786.50) (R07.9) Atrial fibrillation (427.31) (I48.91) Diastolic congestive heart failure (428.30) (I50.30) Hypercholesterolemia (272.0) (E78.00) Hypertension (401.9) (I10) Hyperplastic colon polyp (211.3) (K63.5) Diverticulosis (562.10) (K57.90) Internal hemorrhoids (455.0) (K64.8) Allergies and Adverse Reactions No Known Drug Allergies (Allergy) Medications Aspirin 81 MG TABS; TAKE 1 TABLET DAILY. Refills: 0 Warfarin Sodium 5 MG Oral Tablet; TAKE DIRECTED. Refills: 0 Extra Strength Acetaminophen 500 MG CAPS; TAKE 2 CAPSULES DA ANNAMARIA. Refills: 0 Zantac 150 Maximum Strength 150 MG Oral Tablet; TAKE 1 TABLE T DAILY. Refills: 0 Pramipexole Dihydrochloride 0.125 MG Ora l Tablet; TAKE 1 DAILY 2-3 HOURS BEFORE BEDTIME. Start: 06-Feb-2016 Refills: 0 Atorvastatin Calcium 40 MG Oral Tablet; TAKE 1 TABLET DAILY. Start: 06-Feb-2016 Refills: 0 Allopurinol 100 MG Oral Tablet; TAKE 1 TABLET TWICE DAILY. Start: 06-Feb-2016 Refills: 0 Tylenol PM Extra Strength 500-25 MG Oral Tablet; TAKE 1 TABL ETS AT BEDTIME. Start: 06-Feb-2016 Refills: 0 Cardizem CD 360 MG Oral Capsule Extended Release 24 Hour; TA KE 1 CAPSULE Daily Refills: 0 Potassium Chloride Maria Del Carmen ER 20 MEQ Oral T ablet Extended Release; TAKE 1 TABLET BY MOUTH EVERY DAY Blair Ruiz Start: 17-Nov-2014 Quantity: 30 Refills: 0 Spironolactone-HCTZ 25-25 MG Oral Tablet; TAKE 1 TABLET TING Y. Refills: 0 Multi-Vitamin TABS; TAKE 1 TABLET DAILY. Refills: 0 Furosemide 20 MG Oral Tablet; TAKE 1 TABLET DAILY. Alena Ruiz Start: 13-Jul-2014 Quantity: 30 Refills: 3 Metoprolol Tartrate 100 MG Oral Tablet; TAKE 1 TABLET TWICE DAILY. Quantity: 180 Refills: 3 Suprep Bowel Prep Kit 17.5-3.13-1.6 GM/1 77ML Oral Solution; USE ACCORDING TO THE SPLIT DOSE INSTRUCTIONS MAY Dunn Start: 17-Jun-2017 Quantity: 1 2 x 177 ML Bottle Refills: 0 Procedures Procedures not documented Immunizations Immunizations not documented Family History Father No pertinent family history (V49.89) (Z78.9) Status: Active Social History - Smoking Status Never smoker Plan of Treatment Planned Observations Planned Goals not documented Results No Known Results Results not documented Encounters Appointment; Rene Ruiz M.D. 11-Aug-2017 10:30 Encounter Diagnosis: Problem not documented Appointment; Rene Ruiz M.D. 10-Feb-2017 10:15 Encounter Diagnosis: Problem not documented
[2018-09-15] MEDS ORDERED: METOPROLOL TARTRATE 1 MG/ML VIAL IV STA ×2 (14:34→14:47)
[2018-09-15] MEDS ORDERED: SODIUM CHLORIDE 0.9% 1000ML 500 ML IV ONE (14:40)
[2018-09-15 14:56] LABS: Basophils # (auto) 0.01 K/uL (0-0.2); Basophils % (auto) 0.1 %; Hematocrit (blood only) 43.8 % (42-52); Hemoglobin 15.5 g/dL (14.0-18.0); Immature Granulocytes # (auto) 0.02 K/uL (0.00-0.02); Immature Granulocytes % (auto) 0.2 %; Lymphocytes # (auto) 0.49 K/uL (1.2-3.4); Lymphocytes % (auto) 5.8 %; Mean Corpuscular Hgb Conc 35.4 g/dL (32-36); Mean Corpuscular Volume 94.4 fL (80-100); Monocytes # (auto) 0.44 K/uL (0.11-0.59); Monocytes % (auto) 5.2 %; Neutrophils # (auto) 7.44 K/uL (1.4-6.5); Neutrophils % (auto) 88.7 %; Platelet Count 156 K/uL (130-400); RDW Coefficient of Variation 14.1 % (11.5-14.5); Red Blood Count 4.64 M/uL (4.7-6.1)
[2018-09-15] MEDS ORDERED: dilTIAZem HCl 5 MG/ML 5 ML VIAL IV ONE (15:02)
[2018-09-15] MEDS ORDERED: dilTIAZem HCl 5 MG/ML 5 ML VIAL IV STA (15:02)
[2018-09-15 15:13] LABS: BUN Creatinine Ratio 15.3 (10-20); Blood Urea Nitrogen 22 mg/dl (7-18); Calcium 9.6 mg/dl (8.5-10.1); Carbon Dioxide 28 mmol/L (21-32); Chloride 98 mmol/L (98-107); Creatinine Clr Calc Pharmacy 60.3 ml/min; Est GFR (African American) 56.7; Est GFR (Non-African American) 48.9; Glucose 125 mg/dl (70-99); Magnesium 1.7 mg/dl (1.8-2.4); Potassium 3.6 mmol/L (3.5-5.1); Sodium 134 mmol/L (136-145)
[2018-09-15] MEDS ORDERED: dilTIAZem HCl 125 MG in DEXTROSE 5% 100 ML IV SCH ×2 (15:15→20:30)
[2018-09-15 15:18] LABS: Creatine Kinase 70 U/L (39-308); Troponin I < 0.015 ng/ml (0-0.045)
[2018-09-15] MEDS ORDERED: DOXYCYCLINE HYCLATE 100 MG CAP PO STA (15:25)
--- NOTE | 2018-09-15 15:51 | XRay Report ---
XR chest 1V portable CLINICAL HISTORY: Chest Pain dyspnea COMPARISON STUDY: 05/03/2018 FINDINGS: The bones soft tissues and hemidiaphragms are normal. The cardiomediastinal silhouette is n ormal. The lungs are clear. The pulmonary vasculature is normal. IMPRESSION: Negative chest. The above report was generated using voice recognition software. It may contain grammatical, syntax or spelling errors. Electronically signed by: Jaime Arredondo M.D. 09/15/2018 3:50 PM
--- NOTE | 2018-09-15 16:07 | Ultrasound Report ---
US venous doppler LE LT CLINICAL HISTORY: Left leg swelling COMPARISON STUDY: September 2015 FINDINGS: Real-time and color flow Doppler imaging were performed. Flow was seen within the femoral, popliteal and calf veins with no intraluminal thrombus demonstrated. The saphenous vein is patent. IMPRESSION: No evidence of left lower extremity DVT. Electronically signed by: Evan Rocha M.D. 09/15/2018 4:05 PM
[2018-09-15] MEDS: METOPROLOL TARTRATE 100 MG TAB PO STA ×2 (16:31→16:34)
--- NOTE | 2018-09-15 16:50 | History & Physical Report ---
Date of Service September 15, 2018 Assessment & Plan (1) Atrial fibrillation with RVR: Telemetry. Restart metoprolol tartrate. Diltiazem drip until rate controlled then discontinue. Continue Eliquis therapy Present on Admission?: Yes (2) Cellulitis of left lower extremity: Intravenous Ancef, day 1 Present on Admission?: Yes (3) Gout: Hold allopurinol. Treat with colchicine 0.6 mg 4 times a day until acute attack resolves. Check uric acid level Present on Admission?: Yes (4) Acute kidney injury: Hold all diuretics. Administer IV fluids. Monitor urine output. Serial lab studies Present on Admission?: Yes (5) HTN (hypertension): Treated with metoprolol and diltiazem (6) DVT prophylaxis: The patient is on Eliquis History of Present Illness Chief Complaint: Left leg pain, right great toe pain Primary Care Provider: NO PCP 73-year-old male with chronic atrial fibrillation who takes metoprolol, diltiazem, Eliquis. He is uncertain if he has been taking his medications appropriately. He developed swelling and erythema and tenderness of the left lower extremity between the knee and the ankle over the past several days. He has been working outside and actually increased his Lasix dosage because he was developing some edema in the left lower extremity. He also appears to have developed acute gout of the right great toe at the first metatarsalphalangeal joint. He was given intravenous metoprolol in the ED but remained tachycardic and then was started on a Cardizem drip. His heart rate is now slowing down. He denies any chest pain or shortness of breath whatsoever. Troponin is normal. He is volume depleted with acute kidney injury. Creatinine is up to 1.4 with baseline 1.1. Venous Doppler of the left leg is negative. Chest x-ray clear. He has been given intravenous Ancef for the cellulitis of the left lower extremity and he will be treated with colchicine for the acute gout. All diuretics are on hold. Allopurinol is also on hold. He is admitted for further evaluation and treatment. Allergies Allergy/AdvReac Type Severity Reaction Status Date / Time No Known Allergies Allergy Unknown Unverified 09/15/18 15:27 Home Medications Home Medications Medication Instructions Recorded Confirmed Type Centrum Silver Men 1 tab PO QAM 05/03/18 09/15/18 History Eliquis 5 mg PO BID 05/03/18 09/15/18 History allopurinol [Zyloprim] 300 mg PO QAM 05/03/18 09/15/18 History atorvastatin [Lipitor] 40 mg PO HS 05/03/18 09/15/18 History diltiazem HCl [Cardizem CD] 360 mg PO QAM 05/03/18 09/15/18 History furosemide [Lasix] 40 mg PO QAM 05/03/18 09/15/18 History metoprolol tartrate [Lopressor] 100 mg PO BID 05/03/18 09/15/18 History potassium chloride [Klor-Con M20] 20 meq PO QAM 05/03/18 09/15/18 History ranitidine HCl [Zantac] 150 mg PO BID 05/03/18 09/15/18 History spironolacton-hydrochlorothiaz 1 tab PO QAM 05/03/18 09/15/18 History [Aldactazide] acetaminophen [Tylenol Extra 1,000 mg PO UD PRN 09/15/18 09/15/18 History Strength] colchicine See Rx Instructions .ROUTE .COMPLEX 09/15/18 09/15/18 History diphenhydramine-acetaminophen 1 - 2 tab PO HS PRN 09/15/18 09/15/18 History [Tylenol PM Extra Strength] Past Med/Surg History Medical History HTN (hypertension) Heart disease Pituitary tumor (Chronic) Acute kidney injury Atrial fibrillation Diverticulosis GERD (gastroesophageal reflux disease) Gout Internal hemorrhoids Osteoarthritis Surgical History History of basal cell carcinoma excision Family History Other Heart disease Hypertension Social History Preferred Language: Czech Communication Ability: Effective Beliefs That Will Affect Care: None marital status: Single Current Living Situation: Alone Feels Safe at Home: Yes Smoking Status: Never smoker Second Hand Exposure: No Hx Alcohol Use: Yes Alcohol type: beer Hx Substance Use: No Review of Systems Review of Systems: Constitutional-no fever or chills ENT-no blurred vision, no double vision, no epistaxis, no sore throat Respiratory-no cough, no wheezing, no shortness of breath Cardiac-no palpitations, no chest pain, no syncope GI-no nausea, vomiting, diarrhea, melena, hematochezia -no urinary retention, no urinary incontinence, no dysuria, no hematuria Musculoskeletal-swelling and tenderness of the left lower extremity below the knee. Painful plantar aspect at the base of the right great toe Skin-no bruising, no rashes, no pruritus Neuro-no isolated weakness, no paresthesia, no weakness Psych-no depression, no anxiety Physical Exam Physical Exam: General-alert and oriented x3, no fevers, no chills HEENT-head atraumatic and normocephalic, TMs intact bilaterally, pupils equal and reactive to light, extraocular muscles intact Neck-no lymphadenopathy or thyromegaly, trachea midline Chest-clear to auscultation percussion. No rales wheezing or rhonchi Cardiac-rapid irregular heart rate. Normal S1 and S2. No JVD Abdomen-normal bowel sounds, nontender, no hepatosplenomegaly Skinchronic venous stasis changes bilateral lower extremities with cellulitis left lower extremity below the knee and the ankle. Heavily suntanned Extremities-no cyanosis, clubbing. Bilateral lower extremity edema more pronounced on the left with chronic venous stasis changes and evidence of cellulitis of the left lower leg. Painful plantar aspect of the first MTP joint Psych-normal affect, normal mood Results & Data Vital Signs (Past 12 Hours) Vital Signs Temp Pulse Pulse Resp BP BP Pulse Ox 09/15/18 16:31 125 H 104 H 17 101/73 98 09/15/18 16:30 151 H 15 101/73 97 09/15/18 16:19 132 H 31 H 97 09/15/18 16:18 122 H 22 103/80 94 09/15/18 16:02 134 H 23 105/70 97 09/15/18 15:30 137 H 23 118/90 09/15/18 15:16 123 H 19 116/80 99 09/15/18 15:10 118 H 20 98 09/15/18 15:08 131 H 25 H 116/80 96 09/15/18 15:02 146 H 17 118/90 99 09/15/18 15:00 175 H 17 98 09/15/18 14:56 152 H 23 117/86 97 09/15/18 14:50 151 H 16 97 09/15/18 14:49 167 H 24 111/96 95 09/15/18 14:40 188 H 16 09/15/18 14:37 183 H 14 09/15/18 14:32 36.8 C 189 H 25 H 117/84 99 09/15/18 14:29 176 H 26 H 117/84 Laboratory Results 09/15/18 14:45 09/15/18 14:45 PG Care Time/CCT Total # of Minutes Spent Total Time Spent with Patient: Total time spent is greater than 50% in coord ination of care (as documented) at patient's floor/unit and/or counseling patient: (1) Gout Gout site: unspecified site Gout etiology: unspecified cause Chronicity: unspecified Qualified Code(s): M10.9 - Gout, unspecified (2) HTN (hypertension) Hypertension type: essential hypertension Qualified Code(s): I10 - Essential (primary) hypertension
[2018-09-15] MEDS ORDERED: CEFAZOLIN 1000MG 1,000 MG/7.5 ML SYR IV STA (17:24)
[2018-09-15] MEDS ORDERED: METOPROLOL TARTRATE 50 MG TAB PO STA (17:25)
[2018-09-15] MEDS ORDERED: ONDANSETRON INJ 2 MG/ML 2 ML VIAL IV PRN (18:31)
[2018-09-15] MEDS ORDERED: ALUMINUM/MAGNESIUM SUSP 30 ML UDC PO PRN (18:31)
--- NOTE | 2018-09-15 19:42 | Emergency Department Note ---
Entered by Toma Bosch acting as a scribe for History of Present Illness General Chief complaint: Leg Injury/Pain Time Seen by Provider: 09/15/18 14:27 Source: patient Mode of arrival: EMS Limitations: no limitations History of Present Illness Provider complaint: Leg Injury/Pain Onset (ago): hour(s) Location: lower extremity and left Radiation: non-radiation Quality: + burning Associated symptoms: + other (+left leg swelling, +arm shakiness); no chest pain, no fever/chills and no shortness of breath Treatments prior to arrival: other (+Gout medication ) The patient is a 73 year old male who presents to the Emergency Room with complaints of left leg swelling that began in the morning prior to arrival. The patient describes his pain as a burning. The patient states that he has left leg swelling and arm shakiness. The patient denies hitting his left leg off of anything. The patient denies any chest pain, shortness of breath, or fevers. The patient states that he drove his tractor to the [facility] prior to arrival and states that he was recommended to come to the ED to rule out a possible DVT in his left leg. The patient states that he has Gout in his left leg and states that he has been taking his Gout medication for the past 3 days. The patient states that the only medication he took prior to arrival was his Gout medication. The patient denies taking his eliquis or metoprolol prior to arrival but states that he did take both dosages of those medications the day prior to arrival. The patient states that he has a history of atrial fibrillation and DVT. Home Medications Home Medications Medication Instructions Recorded Confirmed Type Centrum Silver Men 1 tab PO QAM 05/03/18 09/15/18 History Eliquis 5 mg PO BID 05/03/18 09/15/18 History allopurinol [Zyloprim] 300 mg PO QAM 05/03/18 09/15/18 History atorvastatin [Lipitor] 40 mg PO HS 05/03/18 09/15/18 History diltiazem HCl [Cardizem CD] 360 mg PO QAM 05/03/18 09/15/18 History furosemide [Lasix] 40 mg PO QAM 05/03/18 09/15/18 History metoprolol tartrate [Lopressor] 100 mg PO BID 05/03/18 09/15/18 History potassium chloride [Klor-Con M20] 20 meq PO QAM 05/03/18 09/15/18 History ranitidine HCl [Zantac] 150 mg PO BID 05/03/18 09/15/18 History spironolacton-hydrochlorothiaz 1 tab PO QAM 05/03/18 09/15/18 History [Aldactazide] acetaminophen [Tylenol Extra 1,000 mg PO UD PRN 09/15/18 09/15/18 History Strength] colchicine See Rx Instructions .ROUTE .COMPLEX 09/15/18 09/15/18 History diphenhydramine-acetaminophen 1 - 2 tab PO HS PRN 09/15/18 09/15/18 History [Tylenol PM Extra Strength] Allergies Allergy/AdvReac Type Severity Reaction Status Date / Time No Known Allergies Allergy Unknown Unverified 09/15/18 15:27 Past Med/Surg History Medical History Atrial fibrillation with RVR (Acute) Cellulitis of left lower extremity (Acute) Gout (Acute) Acute kidney injury (Acute) HTN (hypertension) (Chronic) Heart disease Pituitary tumor (Chronic) Acute kidney injury Atrial fibrillation Diverticulosis GERD (gastroesophageal reflux disease) Gout Internal hemorrhoids Osteoarthritis Surgical History History of basal cell carcinoma excision Family History Other Heart disease Hypertension Social History Preferred Language: [place] Communication Ability: Effective Beliefs That Will Affect Care: None marital status: Single Current Living Situation: Alone Feels Safe at Home: Yes Smoking Status: Never smoker Second Hand Exposure: No Hx Alcohol Use: Yes Alcohol type: beer Hx Substance Use: No Review of Systems See HPI for pertinent positives & negatives. and A total of 10 systems reviewed and were otherwise negative Physical Exam Vital Signs Vital Signs - 24 hr 09/15/18 14:29 09/15/18 14:32 09/15/18 14:37 Temperature 36.8 C Temperature Source Oral Sepsis Recent Fever Within 48 Hours No Sepsis Action Taken by Nursing No Action Required Pulse Rate 176 H 189 H 183 H Pulse Rate [Finger] Pulse Rate from SpO2 Sensor Pulse Rhythm Irregular Respiratory Rate 26 H 25 H 14 Respiratory Effort / Characteristics Non-Labored Spontaneous Respiratory Depth Normal Blood Pressure 117/84 117/84 Blood Pressure [Right Arm] Blood Pressure Mean 95 95 Blood Pressure Mean [Right Arm] Blood Pressure Position Lying Pulse Oximetry 99 Oxygen Delivery Method Room Air Room Air Room Air 09/15/18 14:40 09/15/18 14:49 09/15/18 14:50 Temperature Temperature Source Sepsis Recent Fever Within 48 Hours Sepsis Action Taken by Nursing Pulse Rate 188 H 167 H 151 H Pulse Rate [Finger] Pulse Rate from SpO2 Sensor 113 H 121 H Pulse Rhythm Respiratory Rate 16 24 16 Respiratory Effort / Characteristics Respiratory Depth Blood Pressure 111/96 Blood Pressure [Right Arm] Blood Pressure Mean 101 Blood Pressure Mean [Right Arm] Blood Pressure Position Pulse Oximetry 95 97 Oxygen Delivery Method Room Air Room Air Room Air 09/15/18 14:56 09/15/18 15:00 09/15/18 15:02 Temperature Temperature Source Sepsis Recent Fever Within 48 Hours Sepsis Action Taken by Nursing Pulse Rate 152 H 175 H 146 H Pulse Rate [Finger] Pulse Rate from SpO2 Sensor 122 H 153 H 129 H Pulse Rhythm Respiratory Rate 23 17 17 Respiratory Effort / Characteristics Respiratory Depth Blood Pressure 117/86 118/90 Blood Pressure [Right Arm] Blood Pressure Mean 96 99 Blood Pressure Mean [Right Arm] Blood Pressure Position Pulse Oximetry 97 98 99 Oxygen Delivery Method Room Air Room Air Room Air 09/15/18 15:08 09/15/18 15:10 09/15/18 15:16 Temperature Temperature Source Sepsis Recent Fever Within 48 Hours Sepsis Action Taken by Nursing Pulse Rate 131 H 118 H Pulse Rate [Finger] 123 H Pulse Rate from SpO2 Sensor 119 H 162 H Pulse Rhythm Respiratory Rate 25 H 20 19 Respiratory Effort / Characteristics Respiratory Depth Blood Pressure 116/80 Blood Pressure [Right Arm] 116/80 Blood Pressure Mean 92 Blood Pressure Mean [Right Arm] 92 Blood Pressure Position Pulse Oximetry 96 98 99 Oxygen Delivery Method Room Air Room Air Room Air 09/15/18 15:30 09/15/18 16:02 09/15/18 16:18 Temperature Temperature Source Sepsis Recent Fever Within 48 Hours Sepsis Action Taken by Nursing Pulse Rate 137 H 134 H 122 H Pulse Rate [Finger] Pulse Rate from SpO2 Sensor 114 H 121 H Pulse Rhythm Respiratory Rate 23 23 22 Respiratory Effort / Characteristics Respiratory Depth Blood Pressure 118/90 105/70 103/80 Blood Pressure [Right Arm] Blood Pressure Mean 99 81 87 Blood Pressure Mean [Right Arm] Blood Pressure Position Pulse Oximetry 97 94 Oxygen Delivery Method 09/15/18 16:19 07/24/19 16:30 09/15/18 16:31 Temperature Temperature Source Sepsis Recent Fever Within 48 Hours Sepsis Action Taken by Nursing Pulse Rate 132 H 151 H 125 H Pulse Rate [Finger] 104 H Pulse Rate from SpO2 Sensor 109 H 94 H 123 H Pulse Rhythm Respiratory Rate 31 H 15 17 Respiratory Effort / Characteristics Respiratory Depth Blood Pressure 101/73 Blood Pressure [Right Arm] 101/73 Blood Pressure Mean 82 Blood Pressure Mean [Right Arm] 82 Blood Pressure Position Pulse Oximetry 97 97 98 Oxygen Delivery Method Room Air Room Air Room Air 09/15/18 16:45 09/15/18 16:46 Temperature Temperature Source Sepsis Recent Fever Within 48 Hours Sepsis Action Taken by Nursing Pulse Rate 105 H 123 H Pulse Rate [Finger] Pulse Rate from SpO2 Sensor 154 H 171 H Pulse Rhythm Respiratory Rate 20 23 Respiratory Effort / Characteristics Respiratory Depth Blood Pressure 93/77 L Blood Pressure [Right Arm] Blood Pressure Mean 82 Blood Pressure Mean [Right Arm] Blood Pressure Position Pulse Oximetry Oxygen Delivery Method Room Air Room Air Physical Exam GENERAL: He is oriented to person, place, and time. He appears well-developed and well-nourished. He does not appear distressed. HENT: Exam performed. - Head: Normocephalic and atraumatic. - Right Ear: External ear normal. No mastoid tenderness. - Left Ear: External ear normal. No mastoid tenderness. - Mouth/Throat: The oropharynx is clear and moist. No trismus in the jaw. No dental abscesses or uvula swelling. No oropharyngeal exudate or tonsillar ab scesses. EYES: Conjunctivae and EOM are normal. Pupils are equal, round, and reactive to light. Right eye exhibits no discharge. Left eye exhibits no discharge. No scleral icterus. NECK: Normal range of motion. Neck supple. No JVD present. No spinous process tenderness present. No carotid bruit present. No rigidity. No tracheal deviation and normal range of motion present. No Brudzinski's sign and no Kernig's sign noted. CV: Tachycardic rate, irregular rhythm, normal heart sounds and intact distal pulses. There is no peripheral edema. Palpable radial pulses bue. PULM/CHEST: Effort normal and breath sounds normal. No respiratory distress. No stridor. He has no wheezes. He has no rales. - Chest Wall: He exhibits no tenderness. ABD: The abdomen is soft. Bowel sounds are normal. He has no distension. No mass is present. There is no tenderness. There is no rebound, no guarding, no Martínez's sign and no tenderness at McBurney's point. Rovsig negative MUSC/SKEL: Normal range of motion. Minimal erythema and swelling over the left lower extremity. Minimal tenderness to touch over the left lower extremity. Palpable DP pulses bilaterally. LYMPH: No cervical adenopathy. NEURO: He is alert and oriented to person, place, and time. He has normal strength. No cranial nerve deficit or sensory deficit. Coordination and gait normal. GCS eye subscore is 4. GCS verbal subscore is 5. GCS motor subscore is 6. cerbellar tests wnl. SKIN: Skin is warm and dry. He is not diaphoretic. PSYCH: He has a normal mood and affect. His behavior is normal. Judgment and thought content normal. Course 1428: The patient was evaluated in room B2, and a complete history and physical examination were performed. The patient was found in A-fib with RVR with a rate of 160-200 on the minilab operator.IV access was immediately obtained. The patient did not take his metoprolol 100 mg as per his normal a.m. dose, so he will be given 5mg of IV metoprolol to better control his heart rate. 1444: The patient was given the 5mg of IV metoprolol at this time. 1447: The patient's heart rate had no significant change and was still in CHELO with RVR after he was given the 5mg of IV metoprolol . The patient's heart rate shows 140 to 170 on the minilab operator. We will repeat another 2.5 mg of IV metoprolol at this time. The patient's blood pressure is 111/96 at this time. 1455: After being given another 2.5 mg of IV metoprolol, the patient's heart rate was still be between 130 to 150 and the patient's blood pressure was 117/86. The patient will be given another 2.5 of metoprolol at this time, and if this does not significantly change the patient's heart rate then the patient will be given cardizem. 1500: A Repeat EKG was also done at this time, results are shown below: Repeat EKG #1 at 1500: Indication: AFIB Rate: 156 Rhythm: Atrial Fibrillation Findings: +QRS and QTC intervals within normal limits, -No ST elevation, -No ST depression. 1505: The patient will be given 10 mg of cardizem at this time due to no significant change in his heart rate. The patient's blood pressure is 118/90 at this time. The patient's heart rate is between 120-140 at this time. A Repeat EKG was also done at this time, results are shown below: Repeat EKG #2 at 1505 (S/P 5mg cartizone): Indication: AFIB Rate: 113 Rhythm: Atrial Fibrillation Findings: +QRS and QTC intervals within normal limits, +Mild ST depression in Lead 3, +Baseline wander due to patient movement 1602: I checked on and updated the patient on their results. The patient's blood pressure is stable on the cardizem drip. The patient will be given 10mg of cardizem per hour. The patient's heart rate is currently between 110-120 bpm. The patient's lab results show a minimal elevated lactic acid of 2.1. The patien't elevated lactic acid and left lower extremity pain, redness, and warmth is most likely due to cellulitis and the patient will be started on doxycycline to treat the cellulitis. The patient's left lower extremity US was negative for a DVT. The patient will be admitted to hospital services for atrial fibrillation with RVR. Administered Medications Diltiazem HCl 125 mg/ Dextrose 125 mls @ 15 mls/hr IV .[id number] [facility]; Protocol Stop: 10/15/18 15:14 Last Titration: 09/15/18 17:39 Dose: 15 mg/hr, 15 mls/hr Documented by: [id number] Admin: 09/15/18 15:13 Dose: 5 mg/hr, 5 mls/hr Documented by: [id number] Cosigned by: [id number] Discontinued Medications Diltiazem HCl (Cardizem) 10 mg IV NOW STA Stop: 09/15/18 15:03 Last Admin: 09/15/18 15:13 Dose: 10 mg Documented by: [id number] Cosigned by: [id number] Diltiazem HCl (Cardizem) Confirm Administered Dose 25 mg IV .ST-MED ONE Stop: 09/15/18 15:03 Last Admin: 09/15/18 15:14 Dose: Not Given Documented by: [id number] Doxycycline Hyclate (Vibramycin) 100 mg PO NOW STA Stop: 09/15/18 15:26 Last Admin: 09/15/18 16:31 Dose: 100 mg Documented by: [id number] Sodium Chloride (Nss 1000ml) 500 mls @ 999 mls/hr IV .Q31M ONE Stop: 09/15/18 15:10 Last Infusion: 09/15/18 15:48 Dose: 0 mls/hr Documented by: [id number] Admin: 09/15/18 15:09 Dose: 999 mls/hr Documented by: [id number] Cefazolin Sodium (Ancef 1000mg) 1,000 mg in 7.5 mls @ 2.5 mls/min IV ONCE STA Stop: 09/15/18 17:26 Last Admin: 09/15/18 17:36 Dose: 2.5 mls/min Documented by: [id number] Metoprolol Tartrate (Lopressor) 5 mg IV NOW STA Stop: 09/15/18 14:35 Last Admin: 09/15/18 14:44 Dose: 5 mg Documented by: [id number] Metoprolol Tartrate (Lopressor) 100 mg PO NOW STA Stop: 09/15/18 14:36 Last Admin: 09/15/18 16:34 Dose: 100 mg Documented by: [id number] Metoprolol Tartrate (Lopressor) 5 mg IV NOW STA Stop: 09/15/18 14:48 Last Admin: 09/15/18 14:49 Dose: 5 mg Documented by: [id number] Metoprolol Tartrate (Lopressor) 100 mg PO ONCE STA Stop: 09/15/18 17:26 Last Admin: 09/15/18 17:34 Dose: Not Given Documented by: [id number] Medical Decision Making Differential Diagnosis Differential diagnosis includes: Medical Records Attestation: I reviewed the patient's medical records. Home Medications Current Medication List: was personally reviewed by me Laboratory Data Attestation: I reviewed the patient's lab results. Result diagrams: 09/15/18 14:45 09/15/18 14:45 Lab Results 09/15/18 09/15/18 09/15/18 Range/Units 14:45 14:45 14:45 WBC 8.40 (4.8-10.8) K/uL RBC 4.64 L (4.7-6.1) M/uL Hgb 15.5 (14.0-18.0) g/dL Hct 43.8 (42-52) % MCV 94.4 (80-100) fL MCH 33.4 (25-34) pg MCHC 35.4 (32-36) g/dL RDW Std Deviation 48.0 H (36.4-46.3) fL RDW Coeff of Kalin 14.1 (11.5-14.5) % Plt Count 156 (130-400) K/uL MPV 11.0 H (7.4-10.4) fL Immature Gran % (Auto) 0.2 % Neut % (Auto) 88.7 % Lymph % (Auto) 5.8 % [place] % (Auto) 5.2 % Eos % (Auto) 0.0 % Baso % (Auto) 0.1 % Immature Gran # (Auto) 0.02 (0.00-0.02) K/uL Neut # (Auto) 7.44 H (1.4-6.5) K/uL Lymph # (Auto) 0.49 L (1.2-3.4) K/uL [place] # (Auto) 0.44 (0.11-0.59) K/uL Eos # (Auto) 0.00 (0-0.5) K/uL Baso # (Auto) 0.01 (0-0.2) K/uL ESR (0-14) mm/hr Sodium 134 L (136-145) mmol/L Potassium 3.6 (3.5-5.1) mmol/L Chloride 98 (98-107) mmol/L Carbon Dioxide 28 (21-32) mmol/L Anion Gap 8.0 (3-11) BUN 22 H (7-18) mg/dl Creatinine 1.43 H (0.6-1.4) mg/dl Est Cr Clr Drug Dosing 60.3 ml/min Est GFR ( Amer) 56.7 Est GFR (Non-Af Amer) 48.9 BUN/Creatinine Ratio 15.3 (10-20) Glucose 125 H (70-99) mg/dl Lactate 2.1 H* (0.4-2.0) mmol/L Uric Acid (2.6-7.2) mg/dl Calcium 9.6 (8.5-10.1) mg/dl Magnesium 1.7 L (1.8-2.4) mg/dl Total Creatine Kinase 70 (39-308) U/L Troponin I < 0.015 (0-0.045) ng/ml Lipase 151 (73-393) U/L 09/15/18 09/15/18 09/15/18 Range/Units 14:45 14:45 14:45 WBC (4.8-10.8) K/uL RBC (4.7-6.1) M/uL Hgb (14.0-18.0) g/dL Hct (42-52) % MCV (80-100) fL MCH (25-34) pg MCHC (32-36) g/dL RDW Std Deviation (36.4-46.3) fL RDW Coeff of Kalin (11.5-14.5) % Plt Count (130-400) K/uL MPV (7.4-10.4) fL Immature Gran % (Auto) % Neut % (Auto) % Lymph % (Auto) % [place] % (Auto) % Eos % (Auto) % Baso % (Auto) % Immature Gran # (Auto) (0.00-0.02) K/uL Neut # (Auto) (1.4-6.5) K/uL Lymph # (Auto) (1.2-3.4) K/uL [place] # (Auto) (0.11-0.59) K/uL Eos # (Auto) (0-0.5) K/uL Baso # (Auto) (0-0.2) K/uL ESR 40 H (0-14) mm/hr Sodium (136-145) mmol/L Potassium (3.5-5.1) mmol/L Chloride (98-107) mmol/L Carbon Dioxide (21-32) mmol/L Anion Gap (3-11) BUN (7-18) mg/dl Creatinine (0.6-1.4) mg/dl Est Cr Clr Drug Dosing ml/min Est GFR ( Amer) Est GFR (Non-Af Amer) BUN/Creatinine Ratio (10-20) Glucose (70-99) mg/dl Lactate (0.4-2.0) mmol/L Uric Acid (2.6-7.2) mg/dl Calcium (8.5-10.1) mg/dl Magnesium Cancelled (1.8-2.4) mg/dl Total Creatine Kinase Cancelled (39-308) U/L Troponin I (0-0.045) ng/ml Lipase (73-393) U/L 09/15/18 Range/Units 14:45 WBC (4.8-10.8) K/uL RBC (4.7-6.1) M/uL Hgb (14.0-18.0) g/dL Hct (42-52) % MCV (80-100) fL MCH (25-34) pg MCHC (32-36) g/dL RDW Std Deviation (36.4-46.3) fL RDW Coeff of Kalin (11.5-14.5) % Plt Count (130-400) K/uL MPV (7.4-10.4) fL Immature Gran % (Auto) % Neut % (Auto) % Lymph % (Auto) % [place] % (Auto) % Eos % (Auto) % Baso % (Auto) % Immature Gran # (Auto) (0.00-0.02) K/uL Neut # (Auto) (1.4-6.5) K/uL Lymph # (Auto) (1.2-3.4) K/uL [place] # (Auto) (0.11-0.59) K/uL Eos # (Auto) (0-0.5) K/uL Baso # (Auto) (0-0.2) K/uL ESR (0-14) mm/hr Sodium (136-145) mmol/L Potassium (3.5-5.1) mmol/L Chloride (98-107) mmol/L Carbon Dioxide (21-32) mmol/L Anion Gap (3-11) BUN (7-18) mg/dl Creatinine (0.6-1.4) mg/dl Est Cr Clr Drug Dosing ml/min Est GFR ( Amer) Est GFR (Non-Af Amer) BUN/Creatinine Ratio (10-20) Glucose (70-99) mg/dl Lactate (0.4-2.0) mmol/L Uric Acid 7.0 (2.6-7.2) mg/dl Calcium (8.5-10.1) mg/dl Magnesium (1.8-2.4) mg/dl Total Creatine Kinase (39-308) U/L Troponin I (0-0.045) ng/ml Lipase (73-393) U/L Imaging Data Radiologist's Impression: Radiology results as stated below per my review and the radiologist's interpretation: XR chest 1V portable CLINICAL HISTORY: Chest Pain dyspnea COMPARISON STUDY: 05/03/2018 FINDINGS: The bones soft tissues and hemidiaphragms are normal. The cardiomediastinal silhouette is normal. The lungs are clear. The pulmonary vasculature is normal. IMPRESSION: Negative chest. The above report was generated using voice recognition software. It may contain grammatical, syntax or spelling errors. Electronically signed by: Jaime Arredondo M.D. 09/15/2018 3:50 PM US venous doppler LE LT CLINICAL HISTORY: Left leg swelling COMPARISON STUDY: September 2015 FINDINGS: Real-time and color flow Doppler imaging were performed. Flow was seen within the femoral, popliteal and calf veins with no intraluminal thrombus demonstrated. The saphenous vein is patent. IMPRESSION: No evidence of left lower extremity DVT. Electronically signed by: Evan Rocha M.D. 09/15/2018 4:05 PM ECG Data Attestation: I personally reviewed and interpreted this ECG as follows: Indication: other (+left leg swelling) Rate (beats per minute): 168 Rhythm: atrial fibrillation (+with RVR) Findings: + other (+QRS and QTC intervals within normal limits); no ST depression and no ST elevation Additional Comments: Repeat EKG #1 at 1500: Indication: AFIB Rate: 156 Rhythm: Atrial Fibrillation Findings: +QRS and QTC intervals within normal limits, -No ST elevation, -No ST depression. Repeat EKG #2 at 1505 (S/P 5mg cartizone): Indication: AFIB Rate: 113 Rhythm: Atrial Fibrillation Findings: +QRS and QTC intervals within normal limits, +Mild ST depression in Lead 3, +Baseline wander due to patient movement Blood Pressure Blood Pressure Findings: Normal blood pressure MDM Narrative 1428: The patient was evaluated in room B2, and a complete history and physical examination were performed. The patient was found in A-fib with RVR with a rate of 160-200 on the minilab operator.IV access was immediately obtained. The patient did not take his metoprolol 100 mg as per his normal a.m. dose, so he will be given 5mg of IV metoprolol to better control his heart rate. 1444: The patient was given the 5mg of IV metoprolol at this time. 1447: The patient's heart rate had no significant change and was still in CHELO with RVR after he was given the 5mg of IV metoprolol . The patient's heart rate shows 140 to 170 on the minilab operator. We will repeat another 2.5 mg of IV metoprolol at this time. The patient's blood pressure is 111/96 at this time. 1455: After being given another 2.5 mg of IV metoprolol, the patient's heart rate was still be between 130 to 150 and the patient's blood pressure was 117/86. The patient will be given another 2.5 of metoprolol at this time, and if this does not significantly change the patient's heart rate then the patient will be given cardizem. 1500: A Repeat EKG was also done at this time, results are shown below: Repeat EKG #1 at 1500: Indication: AFIB Rate: 156 Rhythm: Atrial Fibrillation Findings: +QRS and QTC intervals within normal limits, -No ST elevation, -No ST depression. 1505: The patient will be given 10 mg of cardizem at this time due to no significant change in his heart rate. The patient's blood pressure is 118/90 at this time. The patient's heart rate is between 120-140 at this time. A Repeat EKG was also done at this time, results are shown below: Repeat EKG #2 at 1505 (S/P 5mg cartizone): Indication: AFIB Rate: 113 Rhythm: Atrial Fibrillation Findings: +QRS and QTC intervals within normal limits, +Mild ST depression in Lead 3, +Baseline wander due to patient movement 1602: I checked on and updated the patient on their results. The patient's blood pressure is stable on the cardizem drip. The patient will be given 10mg of cardizem per hour. The patient's heart rate is currently between 110-120 bpm. The patient's lab results show a minimal elevated lactic acid of 2.1. The patien't elevated lactic acid and left lower extremity pain, redness, and warmth is most likely due to cellulitis and the patient will be started on doxycycline to treat the cellulitis. The patient's left lower extremity US was negative for a DVT. The patient will be admitted to hospital services for atrial fibrillation with RVR. Impression & Plan Atrial fibrillation with RVR, Cellulitis of left lower extremity Critical Care Time Critical Care Time: Yes Total Critical Care Time: 42 I have personally spent 42 minutes of critical care time in the direct management of this patient. This includes bedside care, interpretation of diagnostic studies, and testing, discussion with consultants, patient, and family members, and other required patient management activities. This 42 minutes is in excess of all separately billable procedures. Discharge Plan Visit Data *Final* Discharge Date/Time: 09/15/18 17:50 Chief Complaint: Leg Injury/Pain ED Provider: Manuelito Stein Discharge Problem: Atrial fibrillation with RVR, Cellulitis of left lower extremity Patient Disposition: Admitted As Inpatient Discharge Instructions Interventions: ED Discharge Assessment Last Done: 09/15/18 17:50 The josephineibe's documentation has been prepared under my direction and personally reviewed by me in its entirety. I confirm that the note above accurately reflects all work, treatment, procedures, and medical decision making performed by me.
[2018-09-15] MEDS: SODIUM CHLORIDE 0.9% 1000ML 1,000 ML IV SCH (20:46)
[2018-09-15] MEDS: METOPROLOL TARTRATE 100 MG TAB PO SCH (20:46)
[2018-09-15] MEDS: ATORVASTATIN 40 MG TAB PO SCH (20:47)
[2018-09-15] MEDS: APIXABAN 5 MG TABLET PO SCH (20:47)
[2018-09-15] MEDS: COLCHICINE 0.6 MG TAB PO SCH (20:47)
[2018-09-15] MEDS: ACETAMINOPHEN 325 MG TAB PO PRN (20:54)
[2018-09-15] MEDS: TRAMADOL HCL 50 MG TABLET PO PRN (23:40)
[2018-09-16] MEDS: CEFAZOLIN 1000MG 1,000 MG/7.5 ML SYR IV SCH ×3 (02:36→18:23)
[2018-09-16] MEDS: COLCHICINE 0.6 MG TAB PO SCH ×4 (02:36→20:24)
[2018-09-16] MEDS: TRAMADOL HCL 50 MG TABLET PO PRN ×2 (04:27→23:49)
[2018-09-16 06:07] LABS: Basophils # (auto) 0.01 K/uL (0-0.2); Basophils % (auto) 0.1 %; Eosinophils # (auto) 0.02 K/uL (0-0.5); Eosinophils % (auto) 0.3 %; Hematocrit (blood only) 36.9 % (42-52); Hemoglobin 12.6 g/dL (14.0-18.0); Immature Granulocytes # (auto) 0.02 K/uL (0.00-0.02); Immature Granulocytes % (auto) 0.3 %; Lymphocytes # (auto) 0.78 K/uL (1.2-3.4); Lymphocytes % (auto) 10.7 %; Mean Corpuscular Hgb Conc 34.1 g/dL (32-36); Mean Corpuscular Volume 93.9 fL (80-100); Mean Platelet Volume 10.8 fL (7.4-10.4); Monocytes # (auto) 0.72 K/uL (0.11-0.59); Monocytes % (auto) 9.9 %; Neutrophils # (auto) 5.72 K/uL (1.4-6.5); Neutrophils % (auto) 78.7 %; Platelet Count 119 K/uL (130-400); RDW Coefficient of Variation 14.2 % (11.5-14.5); RDW Standard Deviation 48.8 fL (36.4-46.3); Red Blood Count 3.93 M/uL (4.7-6.1); White Blood Count 7.27 K/uL (4.8-10.8)
[2018-09-16 06:58] LABS: BUN Creatinine Ratio 18.9 (10-20); Calcium 8.4 mg/dl (8.5-10.1); Creatinine Clr Calc Pharmacy 78.7 ml/min; Est GFR (African American) 87.4; Est GFR (Non-African American) 75.4; Potassium 3.6 mmol/L (3.5-5.1)
[2018-09-16] MEDS: APIXABAN 5 MG TABLET PO SCH ×2 (09:04→20:25)
[2018-09-16] MEDS: METOPROLOL TARTRATE 100 MG TAB PO SCH ×2 (09:04→20:24)
[2018-09-16] MEDS: SODIUM CHLORIDE 0.9% 1000ML 1,000 ML IV SCH (09:04)
[2018-09-16] MEDS: CEROVITE ADV FORMULA TAB PO SCH (09:04)
[2018-09-16] MEDS: MAGNESIUM SULFATE / D5W 1 GM/100 ML BAG IV SCH ×2 (10:15→12:51)
[2018-09-16] MEDS: dilTIAZem ER 180 MG CAPCR PO SCH (11:19)
[2018-09-16] MEDS: ACETAMINOPHEN 325 MG TAB PO PRN (15:56)
--- NOTE | 2018-09-16 16:18 | Hospitalist Progress Note ---
Date of Service September 16, 2018 Assessment & Plan (1) Atrial fibrillation with RVR: treated with Cardizem drip in the ED and continued overnight continued on metoprolol HR controlled this morning on drip, resume Cardizem 360mg daily and stop drip will transfer to medical floor continue eliquis (2) Cellulitis of left lower extremity: continue to treat with Ancef daily less redness and less pain in left leg no evidence of DVT on doppler yesterday plan to transition to PO antibiotics tomorrow (3) Gout: acute gout flare, right MTP joint Hold allopurinol. Treat with colchicine 0.6 mg 4 times a day until acute attack resolves less pain today but still swollen (4) Acute kidney injury: Hold all diuretics. likely due to dehydration Cr improved to 1.0 today will stop fluids because he is eating and drinking much better today (5) HTN (hypertension): Treated with metoprolol and diltiazem BP stable (6) DVT prophylaxis: The patient is on Eliquis Plan: transfer to medical floor, likely d/c to home tomorrow Subjective patient feeling a lot better this morning HR better controlled on the Diltiazem drip, in the 70-80's gave dose of Diltiazem 360mg and stopped drip reviewed labs, CR down to 1.0, mag was low at 1.7 yesterday, never replaced K is normal at 3.6 CBC normal left leg is feeling better, still operator whiskey, but less hot right great toe still operator whiskey but less swelling per patient no fever, no chest pain, no dyspnea, no cough no GI symptoms, eating really well later in afternoon HR was still well controlled on monitor, transfer to medical floor Review of Systems Review of Systems: All systems reviewed & are unremarkable except as noted in HPI & below Physical Exam Constitutional: WD/WN, vitals as above Eyes: PERRL, conjunctivae normal, anicteric sclerae ENMT: external ear and nose normal, oropharynx normal Neck: trachea midline, no thyromegaly Respiratory: normal respiratory effort, lungs clear to auscultation Cardiovascular: Rate/Rhythm: regular rate and + irregularly irregular Heart Sounds: normal S1 and normal S2; no murmur Vessels: no JVD Extremities: normal capillary refill; no edema Gastrointestinal (Abdomen): normal bowel sounds, soft, nontender, no hepatosplenomegaly Musculoskeletal: no cyanosis or clubbing, extremities motor strength 5/5 (right first MTP joint swollen, red, tender to palpation) Skin: + rash (left calf erythema, not hot, mild tenderness) Neurologic: patellar DTR's 2+ bilat, sensation intact and PERRL, EOMI, accommodation nl, no face palsy, no dysarthria Psychiatric: A+Ox3, euthymic affect Lymphatic: no cervical or axillary lymphadenopathy Results & Data Vital Signs (Past 12 Hours) Vital Signs Temp Pulse Pulse Resp BP Pulse Ox 09/16/18 15:33 37.2 C 61 18 110/70 95 09/16/18 11:11 37.2 C 92 H 17 103/61 96 09/16/18 08:00 89 09/16/18 07:09 37.4 C 89 18 105/66 93 Laboratory Results Laboratory Results - last 24 hr 09/15/18 09/15/18 09/16/18 14:45 14:45 05:55 WBC 7.27 RBC 3.93 L Hgb 12.6 L Hct 36.9 L MCV 93.9 MCH 32.1 MCHC 34.1 RDW Std Deviation 48.8 H RDW Coeff of Kalin 14.2 Plt Count 119 L MPV 10.8 H Immature Gran % (Auto) 0.3 Neut % (Auto) 78.7 Lymph % (Auto) 10.7 [place] % (Auto) 9.9 Eos % (Auto) 0.3 Baso % (Auto) 0.1 Immature Gran # (Auto) 0.02 Neut # (Auto) 5.72 Lymph # (Auto) 0.78 L [place] # (Auto) 0.72 H Eos # (Auto) 0.02 Baso # (Auto) 0.01 ESR 40 H Sodium Potassium Chloride Carbon Dioxide Anion Gap BUN Creatinine Est Cr Clr Drug Dosing Est GFR ( Amer) Est GFR (Non-Af Amer) BUN/Creatinine Ratio Glucose Uric Acid 7.0 Calcium 09/16/18 05:55 WBC RBC Hgb Hct MCV MCH MCHC RDW Std Deviation RDW Coeff of Kalin Plt Count MPV Immature Gran % (Auto) Neut % (Auto) Lymph % (Auto) [place] % (Auto) Eos % (Auto) Baso % (Auto) Immature Gran # (Auto) Neut # (Auto) Lymph # (Auto) [place] # (Auto) Eos # (Auto) Baso # (Auto) ESR Sodium 136 Potassium 3.6 Chloride 103 Carbon Dioxide 25 Anion Gap 8.0 BUN 19 H Creatinine 1.00 D Est Cr Clr Drug Dosing 78.7 Est GFR ( Amer) 87.4 Est GFR (Non-Af Amer) 75.4 BUN/Creatinine Ratio 18.9 Glucose 89 Uric Acid Calcium 8.4 L Diagnostic Findings US venous doppler LE LT CLINICAL HISTORY: Left leg swelling COMPARISON STUDY: September 2015 FINDINGS: Real-time and color flow Doppler imaging were performed. Flow was seen within the femoral, popliteal and calf veins with no intraluminal thrombus demonstrated. The saphenous vein is patent. IMPRESSION: No evidence of left lower extremity DVT. Medications Administered Current Inpatient Medications Acetaminophen (Tylenol) 650 mg PO Q4H PRN PRN Reason: Pain or Fever Stop: 10/15/18 18:30 Last Admin: 09/16/18 15:56 Dose: 650 mg Documented by: Al Hydrox/Mg Hydrox/Simethicone (Maalox) 15 ml PO Q4H PRN PRN Reason: Dyspepsia Stop: 10/15/18 18:30 Apixaban (Eliquis) 5 mg PO BID [facility] Stop: 10/15/18 20:59 Last Admin: 09/16/18 09:04 Dose: 5 mg Documented by: Atorvastatin Calcium (Lipitor) 40 mg PO HS [facility] Stop: 10/15/18 20:59 Last Admin: 09/15/18 20:47 Dose: 40 mg Documented by: Colchicine (Colcrys) 0.6 mg PO Q6H FE Stop: 10/15/18 19:59 Last Admin: 09/16/18 14:25 Dose: 0.6 mg Documented by: Diltiazem HCl (Tiazac) 360 mg PO QAM [facility] Stop: 10/16/18 09:44 Last Admin: 09/16/18 11:19 Dose: 360 mg Documented by: Cefazolin Sodium (Ancef 1000mg) 1,000 mg in 7.5 mls @ 2.5 mls/min IV Q8H [facility] Stop: 09/26/18 01:59 Last Admin: 09/16/18 12:50 Dose: 2.5 mls/min Documented by: Metoprolol Tartrate (Lopressor) 100 mg PO BID [facility] Stop: 10/15/18 20:59 Last Admin: 09/16/18 09:04 Dose: 100 mg Documented by: Multivitamins/Minerals (Multivitamin W/ Minerals Tab) 1 tab PO QAM FE Stop: 10/16/18 08:59 Last Admin: 09/16/18 09:04 Dose: 1 tab Documented by: Ondansetron HCl (Zofran) 4 mg IV Q6H PRN PRN Reason: Nausea Stop: 10/15/18 18:30 Ranitidine HCl (Zantac) 150 mg PO BID [facility] Stop: 10/15/18 20:59 Last Admin: 09/16/18 09:04 Dose: 150 mg Documented by: Tramadol HCl (Ultram) 50 mg PO Q4H PRN PRN Reason: Pain Stop: 10/15/18 23:28 Last Admin: 09/16/18 04:27 Dose: 50 mg Documented by: PG Care Time/CCT Total # of Minutes Spent Total Time Spent with Patient: Total time spent is greater than 50% in coordination of care (as documented) at patient's floor/unit and/or counseling patient: (1) Gout Gout site: unspecified site Gout etiology: unspecified cause Chronicity: unspecified Qualified Code(s): M10.9 - Gout, unspecified (2) HTN (hypertension) Hypertension type: essential hypertension Qualified Code(s): I10 - Essential (primary) hypertension
[2018-09-16] MEDS: ATORVASTATIN 40 MG TAB PO SCH (20:25)
[2018-09-17] MEDS: COLCHICINE 0.6 MG TAB PO SCH ×4 (01:48→21:04)
[2018-09-17] MEDS: CEFAZOLIN 1000MG 1,000 MG/7.5 ML SYR IV SCH ×2 (01:50→09:13)
[2018-09-17] MEDS ORDERED: SODIUM CHLORIDE 0.65% NA SOLN 45 ML (OCEAN) ONE (07:34)
[2018-09-17] MEDS: dilTIAZem ER 180 MG CAPCR PO SCH (07:36)
[2018-09-17] MEDS: TRAMADOL HCL 50 MG TABLET PO PRN (07:37)
[2018-09-17] MEDS: APIXABAN 5 MG TABLET PO SCH ×2 (07:37→21:04)
[2018-09-17] MEDS: METOPROLOL TARTRATE 100 MG TAB PO SCH ×2 (07:39→21:04)
[2018-09-17] MEDS: CEROVITE ADV FORMULA TAB PO SCH (07:40)
[2018-09-17 07:41] LABS: Basophils # (auto) 0.01 K/uL (0-0.2); Basophils % (auto) 0.1 %; Eosinophils # (auto) 0.04 K/uL (0-0.5); Eosinophils % (auto) 0.6 %; Hematocrit (blood only) 36.8 % (42-52); Hemoglobin 12.7 g/dL (14.0-18.0); Immature Granulocytes # (auto) 0.02 K/uL (0.00-0.02); Immature Granulocytes % (auto) 0.3 %; Lymphocytes # (auto) 1.07 K/uL (1.2-3.4); Lymphocytes % (auto) 15.8 %; Mean Corpuscular Hgb Conc 34.5 g/dL (32-36); Mean Corpuscular Volume 95.3 fL (80-100); Mean Platelet Volume 11.1 fL (7.4-10.4); Monocytes # (auto) 0.68 K/uL (0.11-0.59); Neutrophils # (auto) 4.96 K/uL (1.4-6.5); Neutrophils % (auto) 73.2 %; Platelet Count 122 K/uL (130-400); RDW Coefficient of Variation 14.1 % (11.5-14.5); RDW Standard Deviation 48.9 fL (36.4-46.3); Red Blood Count 3.86 M/uL (4.7-6.1); White Blood Count 6.78 K/uL (4.8-10.8)
[2018-09-17 08:17] LABS: BUN Creatinine Ratio 19.7 (10-20); Calcium 8.5 mg/dl (8.5-10.1); Creatinine Clr Calc Pharmacy 77.9 ml/min; Est GFR (African American) 86.3; Est GFR (Non-African American) 74.5; Potassium 3.6 mmol/L (3.5-5.1)
[2018-09-17] MEDS: ACETAMINOPHEN 325 MG TAB PO PRN (09:14)
[2018-09-17] MEDS ORDERED: VANCOMYCIN CONSULT ACTIVE PRN (10:32)
[2018-09-17] MEDS ORDERED: VANCOMYCIN HCL 1,000 MG in SODIUM CHLORIDE 0.9% 250 ML IV SCH (10:45)
[2018-09-17] MEDS ORDERED: VANCOMYCIN HCL 2,000 MG in SODIUM CHLORIDE 0.9% 500 ML IV ONE (12:00)
[2018-09-17] MEDS ORDERED: VANCOMYCIN HCL 2,500 MG in SODIUM CHLORIDE 0.9% 500 ML IV ONE (12:30)
[2018-09-17] MEDS: cefTRIAXone SODIUM 2,000 MG in DEXTROSE 5% 50 ML IV SCH (12:49)
--- NOTE | 2018-09-17 14:32 | Pharmacy Report ---
Pharmacy Abx Initial Consult - Date of Service September 17, 2018 - Pharmacy Dosing Scope Date of Consult: 09/17/18 Consultation requested by: Dr. Lea Pharmacy is consulted to initiate Vancomycin IV dosing therapy, order appropriate labs and adjust drug dose/frequency. - Subjective The patient is a 73 year old M admitted on 09/15/18 16:47. - Objective Height: 5 ft 9 in Weight: 121.8 kg Vital Signs (Past 12hrs): Vital Signs Temp Pulse Resp BP Pulse Ox 09/17/18 07:39 36.8 C 67 20 111/71 96 Lab Results (24hrs): Laboratory Tests (24 Hours) 09/17/18 09/17/18 07:13 07:13 WBC 6.78 Neut # (Auto) 4.96 Creatinine 1.01 Est Cr Clr Drug Dosing 77.9 Micro Results: None - Risk Factors for Resistance None - Assessment & Plan Assessment 73 year old M admitted for LLE cellulitis Asked RN to update patient's weight prior to dosing him --> 121.8 kg Plan IV Vancomycin and Rocephin for treatment of LLE cellulitis Vancomycin IV * Estimated PK Parameters: Vd 0.6 L/kg, Vj 0.069 hr-1, t1/2 ~10 hrs * Loading dose: 2500 mg (~21 mg/kg) * Maintenance dose: 1500 mg IV (~12 mg/kg) every 12 hours * Goal trough level for cellulitis: 10 to 20 mcg/mL * Trough level ordered for 09/19/18 at 1330 prior to the 4th dose * A less than traditional dose and extended dosing interval have been selected due to likelihood of drug accumulation in obese patient Pharmacy will continue to follow and will adjust dose/frequency as necessary. Thank you.
--- NOTE | 2018-09-17 15:57 | Hospitalist Progress Note ---
Date of Service September 17, 2018 Assessment & Plan (1) Atrial fibrillation with RVR: treated with Cardizem drip in the ED and continued overnight continued on metoprolol HR controlled after resuming Cardizem 360mg daily continue eliquis (2) Cellulitis of left lower extremity: more pain and more redness in left leg today tried to walk and it was really painful no evidence of DVT on doppler will stop Ancef, broaden out to Vancomycin and Rocephin will be here over the weekend on IV antibiotics this regimen should improve infection (3) Gout: acute gout flare, right MTP joint continue to Hold allopurinol. Treat with colchicine 0.6 mg 4 times a day no pain, no swelling today will reduce Colchicine to 0.6mg BID continue this on discharge and can then resume Allopurinol (4) Acute kidney injury: Hold all diuretics. likely due to dehydration Cr improved to 1.0 yesterday as well as today resume Diuretics after the weekend (5) HTN (hypertension): Treated with metoprolol and diltiazem BP stable (6) DVT prophylaxis: The patient is on Eliquis Plan: continue Vanco and Rocephin over the weekend look for clinical improvement hopeful for d/c home on PO antibiotics on Thursday Subjective still with severe pain in left leg more hot, more tender today, tried to walk but it hurt a lot right MTP joint is not tender at all, colchicine working reviewed labs, WBC normal, Cr stable at 1.0 discussed with patient that since leg getting worse will broaden antibiotics discussed that he will be here the weekend, he agreed to this plan Review of Systems Review of Systems: All systems reviewed & are unremarkable except as noted in HPI & below Constitutional: no fever, no sweats, no fatigue and no weakness Integumentary: + rash (left lower leg, erythema, tender, hot) Physical Exam Constitutional: WD/WN, vitals as above Eyes: PERRL, conjunctivae normal, anicteric sclerae ENMT: external ear and nose normal, oropharynx normal Neck: trachea midline, no thyromegaly Respiratory: normal respiratory effort, lungs clear to auscultation Cardiovascular: Rate/Rhythm: regular rate and + irregularly irregular Heart Sounds: normal S1 and normal S2; no murmur Vessels: no JVD Extremities: normal capillary refill; no edema Gastrointestinal (Abdomen): normal bowel sounds, soft, nontender, no hepatosplenomegaly Musculoskeletal: no cyanosis or clubbing, extremities motor strength 5/5 (right first MTP joint no longer swollen or tender) Skin: + rash (left calf erythema, more tender, hot again today) Neurologic: patellar DTR's 2+ bilat, sensation intact and PERRL, EOMI, accommodation nl, no face palsy, no dysarthria Psychiatric: A+Ox3, euthymic affect Lymphatic: no cervical or axillary lymphadenopathy Results & Data Vital Signs (Past 12 Hours) Vital Signs Temp Pulse Resp BP BP Pulse Ox 09/17/18 15:43 36.8 C 72 18 128/76 97 09/17/18 07:39 36.8 C 67 20 111/71 96 Laboratory Results Laboratory Results - last 24 hr 09/17/18 09/17/18 07:13 07:13 WBC 6.78 RBC 3.86 L Hgb 12.7 L Hct 36.8 L MCV 95.3 MCH 32.9 MCHC 34.5 RDW Std Deviation 48.9 H RDW Coeff of Kalin 14.1 Plt Count 122 L MPV 11.1 H Immature Gran % (Auto) 0.3 Neut % (Auto) 73.2 Lymph % (Auto) 15.8 [place] % (Auto) 10.0 Eos % (Auto) 0.6 Baso % (Auto) 0.1 Immature Gran # (Auto) 0.02 Neut # (Auto) 4.96 Lymph # (Auto) 1.07 L [place] # (Auto) 0.68 H Eos # (Auto) 0.04 Baso # (Auto) 0.01 Sodium 137 Potassium 3.6 Chloride 104 Carbon Dioxide 26 Anion Gap 6.0 BUN 20 H Creatinine 1.01 Est Cr Clr Drug Dosing 77.9 Est GFR ( Amer) 86.3 Est GFR (Non-Af Amer) 74.5 BUN/Creatinine Ratio 19.7 Glucose 90 Calcium 8.5 Medications Administered Current Inpatient Medications Acetaminophen (Tylenol) 650 mg PO Q4H PRN PRN Reason: Pain or Fever Stop: 10/15/18 18:30 Last Admin: 09/17/18 09:14 Dose: 650 mg Documented by: Al Hydrox/Mg Hydrox/Simethicone (Maalox) 15 ml PO Q4H PRN PRN Reason: Dyspepsia Stop: 10/15/18 18:30 Apixaban (Eliquis) 5 mg PO BID [facility] Stop: 10/15/18 20:59 Last Admin: 09/17/18 07:37 Dose: 5 mg Documented by: Atorvastatin Calcium (Lipitor) 40 mg PO HS [facility] Stop: 10/15/18 20:59 Last Admin: 09/16/18 20:25 Dose: 40 mg Documented by: Colchicine (Colcrys) 0.6 mg PO Q6H FE Stop: 10/15/18 19:59 Last Admin: 09/17/18 13:52 Dose: 0.6 mg Documented by: Diltiazem HCl (Tiazac) 360 mg PO QAM [facility] Stop: 10/16/18 09:44 Last Admin: 09/17/18 07:36 Dose: 360 mg Documented by: Ceftriaxone Sodium 2,000 mg/ (Dextrose) 70 mls @ 100 mls/hr IV DAILY [facility]; Protocol Stop: 09/27/18 11:29 Last Infusion: 09/17/18 13:47 Dose: Infused Documented by: Vancomycin HCl 1,500 mg/ (Sodium Chloride) 530 mls @ 200 mls/hr IV Q12H [facility]; Protocol Stop: 09/28/18 01:59 Metoprolol Tartrate (Lopressor) 100 mg PO BID [facility] Stop: 10/15/18 20:59 Last Admin: 09/17/18 07:39 Dose: 100 mg Documented by: Miscellaneous Information (Consult) 1 ea N/A UD PRN PRN Reason: Consult Stop: 10/17/18 10:31 Multivitamins/Minerals (Multivitamin W/ Minerals Tab) 1 tab PO QAM [facility] Stop: 10/16/18 08:59 Last Admin: 09/17/18 07:40 Dose: 1 tab Documented by: Ondansetron HCl (Zofran) 4 mg IV Q6H PRN PRN Reason: Nausea Stop: 10/15/18 18:30 Ranitidine HCl (Zantac) 150 mg PO BID [facility] Stop: 10/15/18 20:59 Last Admin: 09/17/18 07:40 Dose: 150 mg Documented by: Tramadol HCl (Ultram) 50 mg PO Q4H PRN PRN Reason: Pain Stop: 10/15/18 23:28 Last Admin: 09/17/18 07:37 Dose: 50 mg Documented by: PG Care Time/CCT Total # of Minutes Spent Total Time Spent with Patient: Total time spent is greater than 50% in coordination of care (as documented) at patient's floor/unit and/or counseling patient: (1) Gout Chronicity: unspecified Gout etiology: unspecified cause Gout site: unspecified site Qualified Code(s): M10.9 - Gout, unspecified (2) HTN (hypertension) Hypertension type: essential hypertension Qualified Code(s): I10 - Essential (primary) hypertension
[2018-09-17] MEDS: ATORVASTATIN 40 MG TAB PO SCH (21:04)
[2018-09-18] MEDS: VANCOMYCIN HCL 1,500 MG in SODIUM CHLORIDE 0.9% 500 ML IV SCH ×2 (01:00→15:31)
[2018-09-18 06:24] LABS: Basophils # (auto) 0.01 K/uL (0-0.2); Basophils % (auto) 0.2 %; Eosinophils # (auto) 0.11 K/uL (0-0.5); Eosinophils % (auto) 2.1 %; Hemoglobin 12.1 g/dL (14.0-18.0); Immature Granulocytes # (auto) 0.01 K/uL (0.00-0.02); Immature Granulocytes % (auto) 0.2 %; Lymphocytes # (auto) 1.11 K/uL (1.2-3.4); Lymphocytes % (auto) 21.1 %; Mean Corpuscular Hgb Conc 33.6 g/dL (32-36); Mean Corpuscular Volume 94.2 fL (80-100); Mean Platelet Volume 11.2 fL (7.4-10.4); Monocytes # (auto) 0.54 K/uL (0.11-0.59); Monocytes % (auto) 10.2 %; Neutrophils # (auto) 3.49 K/uL (1.4-6.5); Neutrophils % (auto) 66.2 %; Platelet Count 140 K/uL (130-400); RDW Standard Deviation 47.9 fL (36.4-46.3); Red Blood Count 3.82 M/uL (4.7-6.1); White Blood Count 5.27 K/uL (4.8-10.8)
[2018-09-18 06:49] LABS: BUN Creatinine Ratio 22.1 (10-20); Calcium 8.7 mg/dl (8.5-10.1); Creatinine Clr Calc Pharmacy 101.6 ml/min; Est GFR (African American) 101.1; Est GFR (Non-African American) 87.2; Potassium 3.9 mmol/L (3.5-5.1)
[2018-09-18] MEDS: TRAMADOL HCL 50 MG TABLET PO PRN (07:36)
[2018-09-18] MEDS: APIXABAN 5 MG TABLET PO SCH ×2 (07:37→21:02)
[2018-09-18] MEDS: COLCHICINE 0.6 MG TAB PO SCH ×2 (07:37→21:02)
[2018-09-18] MEDS: dilTIAZem ER 180 MG CAPCR PO SCH (07:38)
[2018-09-18] MEDS: CEROVITE ADV FORMULA TAB PO SCH (07:38)
[2018-09-18] MEDS: METOPROLOL TARTRATE 100 MG TAB PO SCH ×2 (07:39→21:08)
[2018-09-18] MEDS: cefTRIAXone SODIUM 2,000 MG in DEXTROSE 5% 50 ML IV SCH (08:59)
[2018-09-18] MEDS: ATORVASTATIN 40 MG TAB PO SCH (21:02)
--- NOTE | 2018-09-18 21:19 | Hospitalist Progress Note ---
Date of Service September 18, 2018 Assessment & Plan (1) Atrial fibrillation with RVR: Treated with Cardizem drip in the ED and continued overnight continued on metoprolol HR controlled after resuming Cardizem 360mg daily continue eliquis. HR appears stable. (2) Cellulitis of left lower extremity: Pain and redness of left leg has improved. no evidence of DVT on doppler. It is still painful but he was able to ambulate to the bathroom today. will continue Vancomycin and Rocephin as Ancef was not helping. will be here over the weekend on IV antibiotics. Asked the nurse to rodger wrap the extremity to bring down swelling. If patient does not tolerate this, will then hold. (3) Gout: acute gout flare, right MTP joint continue to hold allopurinol. Treat with colchicine 0.6 mg 4 times a day no pain, no swelling today reduced Colchicine to 0.6mg BID continue this on discharge and can then resume Allopurinol (4) Acute kidney injury: Hold all diuretics. likely due to dehydration Cr improved to 1.0 resume Diuretics after the weekend (5) HTN (hypertension): Treated with metoprolol and diltiazem BP stable (6) DVT prophylaxis: The patient is on Eliquis Plan: continue Vanco and Rocephin over the weekend look for clinical improvement hopeful for d/c home on PO antibiotics on Thursday Subjective 73 yo male reports feeling better today. He states it is still red, and swollen but the amount of swelling has decreased as well as the amount of redness. Review of Systems Review of Systems: Constitutional-no fever or chills ENT-no blurred vision, no double vision, no epistaxis, no sore throat Respiratory-no cough, no wheezing, no shortness of breath Cardiac-no palpitations, no chest pain, no syncope GI-no nausea, vomiting, diarrhea, melena, hematochezia -no urinary retention, no urinary incontinence, no dysuria, no hematuria Musculoskeletal-swelling and tenderness of the left lower extremity below the knee. Painful plantar aspect at the base of the right great toe Neuro-no isolated weakness, no paresthesia, no weakness Psych-no depression, no anxiety Integumentary: + rash (left lower leg, erythema, tender, hot) Physical Exam Physical Exam: Constitutional: WD/WN, vitals as above Eyes: PERRL, conjunctivae normal, anicteric sclerae ENMT: external ear and nose normal, oropharynx normal Neck: trachea midline, no thyromegaly Respiratory: normal respiratory effort, lungs clear to auscultation Cardiovascular: Rate/Rhythm: regular rate and + irregularly irregular Heart Sounds: normal S1 and normal S2; no murmur Vessels: no JVD Extremities: normal capillary refill; no edema Gastrointestinal (Abdomen): normal bowel sounds, soft, nontender, no hepatosplenomegaly Musculoskeletal: no cyanosis or clubbing, extremities motor strength 5/5 (right first MTP joint no longer swollen or tender) Skin: + rash (left calf erythema, more tender, hot again today) Neurologic: patellar DTR's 2+ bilat, sensation intact and PERRL, EOMI, accommodation nl, no face palsy, no dysarthria Psychiatric: A+Ox3, euthymic affect Lymphatic: no cervical or axillary lymphadenopathy Results & Data Vital Signs (Past 12 Hours) Vital Signs Pulse BP 09/18/18 21:00 57 L 118/62 PG Care Time/CCT Total # of Minutes Spent Total Time Spent with Patient: Total time spent is greater than 50% in coordination of care (as documented) at patient's floor/unit and/or counseling patient: (1) Gout Chronicity: unspecified Gout etiology: unspecified cause Gout site: unspecified site Qualified Code(s): M10.9 - Gout, unspecified (2) HTN (hypertension) Hypertension type: essential hypertension Qualified Code(s): I10 - Essential (primary) hypertension
[2018-09-19] MEDS: VANCOMYCIN HCL 1,500 MG in SODIUM CHLORIDE 0.9% 500 ML IV SCH ×2 (01:13→15:29)
[2018-09-19] MEDS: TRAMADOL HCL 50 MG TABLET PO PRN ×3 (02:38→20:16)
[2018-09-19] MEDS: ACETAMINOPHEN 325 MG TAB PO PRN ×2 (05:35→22:28)
[2018-09-19 06:58] LABS: Creatinine Clr Calc Pharmacy 114.9 ml/min; Est GFR (African American) 106.4; Est GFR (Non-African American) 91.8
[2018-09-19] MEDS: COLCHICINE 0.6 MG TAB PO SCH ×2 (08:35→20:17)
[2018-09-19] MEDS: APIXABAN 5 MG TABLET PO SCH ×2 (08:35→20:17)
[2018-09-19] MEDS: dilTIAZem ER 180 MG CAPCR PO SCH (08:35)
[2018-09-19] MEDS: CEROVITE ADV FORMULA TAB PO SCH (08:36)
[2018-09-19] MEDS: METOPROLOL TARTRATE 100 MG TAB PO SCH ×2 (08:37→20:17)
[2018-09-19] MEDS: cefTRIAXone SODIUM 2,000 MG in DEXTROSE 5% 50 ML IV SCH (09:45)
[2018-09-19] MEDS ORDERED: VANCOMYCIN TROUGH ONE (13:30)
--- NOTE | 2018-09-19 16:43 | Pharmacy Report ---
Pharmacy Abx Dose Short Note - Date of Service September 19, 2018 - Assessment & Plan Assessment 73 year old M receiving Vancomycin 1500mg IV q12h for treatment of LLE cellulitis Day #4 of antimicrobial therapy. Plan Vancomycin * Trough level of 13.3 mcg/mL is subtherapeutic * Change to 1750 mg IV every 10 hours * Goal trough level for cellulitis: 15 to mcg/mL * Trough level ordered for: 09/21/18 at 0530 Pharmacy will continue to follow and will adjust dose/frequency as necessary. Thank you.
[2018-09-19] MEDS: ATORVASTATIN 40 MG TAB PO SCH (20:17)
--- NOTE | 2018-09-19 22:42 | Hospitalist Progress Note ---
Date of Service September 19, 2018 Assessment & Plan (1) Atrial fibrillation with RVR: Treated with Cardizem drip in the ED and continued overnight continued on metoprolol HR controlled after resuming Cardizem 360mg daily continue eliquis. HR appears stable. (2) Cellulitis of left lower extremity: Pain and redness of left leg has improved. no evidence of DVT on doppler. It is less painful and he was able to ambulate to the bathroom today. will continue Vancomycin and Rocephin as Ancef was not helping. will be here over the weekend on IV antibiotics. will continue to rodger wrap his extremity. (3) Gout: acute gout flare, right MTP joint continue to hold allopurinol. Treat with colchicine 0.6 mg 4 times a day no pain, no swelling today reduced Colchicine to 0.6mg BID continue this on discharge and can then resume Allopurinol (4) Acute kidney injury: Hold all diuretics. likely due to dehydration Cr improved to 1.0 resume Diuretics after the weekend (5) HTN (hypertension): Treated with metoprolol and diltiazem BP stable (6) DVT prophylaxis: The patient is on Eliquis Plan: continue Vanco and Rocephin over the weekend look for clinical improvement hopeful for d/c home on PO antibiotics on Thursday Subjective Patient reports improvement in his pain in his leg with decreased swelling. He feels the rodger wrap and the current antibiotics have helped. Review of Systems Review of Systems: Constitutional-no fever or chills ENT-no blurred vision, no double vision, no epistaxis, no sore throat Respiratory-no cough, no wheezing, no shortness of breath Cardiac-no palpitations, no chest pain, no syncope GI-no nausea, vomiting, diarrhea, melena, hematochezia -no urinary retention, no urinary incontinence, no dysuria, no hematuria Musculoskeletal-swelling and tenderness of the left lower extremity below the knee. Painful plantar aspect at the base of the right great toe Neuro-no isolated weakness, no paresthesia, no weakness Psych-no depression, no anxiety Integumentary: + rash (left lower leg, erythema, tender, hot) Physical Exam Physical Exam: Constitutional: WD/WN, vitals as above Eyes: PERRL, conjunctivae normal, anicteric sclerae ENMT: external ear and nose normal, oropharynx normal Neck: trachea midline, no thyromegaly Respiratory: normal respiratory effort, lungs clear to auscultation Cardiovascular: Rate/Rhythm: regular rate and + irregularly irregular Heart Sounds: normal S1 and normal S2; no murmur Vessels: no JVD Extremities: normal capillary refill; no edema Gastrointestinal (Abdomen): normal bowel sounds, soft, nontender, no hepatosplenomegaly Musculoskeletal: no cyanosis or clubbing, extremities motor strength 5/5 (right first MTP joint no longer swollen or tender) Skin: + rash (left calf erythema, less tender, decreased swelling, less hot) Neurologic: patellar DTR's 2+ bilat, sensation intact and PERRL, EOMI, accommodation nl, no face palsy, no dysarthria Psychiatric: A+Ox3, euthymic affect Lymphatic: no cervical or axillary lymphadenopathy Results & Data Vital Signs (Past 12 Hours) Vital Signs Temp Pulse Resp BP Pulse Ox 09/19/18 20:28 36.8 C 67 18 132/80 96 PG Care Time/CCT Total # of Minutes Spent Total Time Spent with Patient: Total time spent is greater than 50% in coordination of care (as documented) at patient's floor/unit and/or counseling patient: (1) Gout Chronicity: unspecified Gout etiology: unspecified cause Gout site: unspecified site Qualified Code(s): M10.9 - Gout, unspecified (2) HTN (hypertension) Hypertension type: essential hypertension Qualified Code(s): I10 - Essential (primary) hypertension
[2018-09-20] MEDS: VANCOMYCIN HCL 1,750 MG in SODIUM CHLORIDE 0.9% 500 ML IV SCH ×3 (00:11→21:27)
[2018-09-20] MEDS: TRAMADOL HCL 50 MG TABLET PO PRN ×2 (00:13→23:37)
[2018-09-20] MEDS ORDERED: OXYCODONE/ACETAMINOPHEN 5mg/325mg TAB PO STA (00:16)
[2018-09-20] MEDS ORDERED: OXYCODONE/ACETAMINOPHEN 5mg/325mg TAB ONE (06:26)
[2018-09-20 06:51] LABS: Est GFR (African American) 99.2; Est GFR (Non-African American) 85.6
[2018-09-20] MEDS: APIXABAN 5 MG TABLET PO SCH ×2 (08:27→21:30)
[2018-09-20] MEDS: COLCHICINE 0.6 MG TAB PO SCH ×2 (08:27→21:30)
[2018-09-20] MEDS: CEROVITE ADV FORMULA TAB PO SCH (08:27)
[2018-09-20] MEDS: METOPROLOL TARTRATE 100 MG TAB PO SCH ×2 (08:27→21:34)
[2018-09-20] MEDS: cefTRIAXone SODIUM 2,000 MG in DEXTROSE 5% 50 ML IV SCH (08:28)
[2018-09-20] MEDS: dilTIAZem ER 180 MG CAPCR PO SCH (08:28)
[2018-09-20] MEDS: ACETAMINOPHEN 325 MG TAB PO PRN ×2 (10:30→16:43)
--- NOTE | 2018-09-20 11:01 | Hospitalist Progress Note ---
Date of Service September 20, 2018 Assessment & Plan (1) Cellulitis of left lower extremity: Slowly improving but infection has been relatively stubborn as is common with leg cellulitis in background of venous insufficiency. Continue Vancomycin and Rocephin. Previously on Ancef at admission w/o improvement. Elevate leg. Circulation appears clinically intact on exam. Toradol x 2 doses today for swelling/pain. Present on Admission?: Yes (2) Atrial fibrillation with RVR: Treated with Cardizem drip in the ED then transitioned back to PO diltiazem 360mg daily. Cont metoprolol. Cont eliquis BID. Present on Admission?: Yes (3) Gout: acute gout flare, right MTP joint - resolved. Resume allopurinol. Stop colchicine. (4) Acute kidney injury: Peak Cr 1.4 -- resolved. Resume lasix tomorrow if BMP is stable. (5) HTN (hypertension): Treated with metoprolol and diltiazem BP stable/controlled (6) DVT prophylaxis: eliquis Subjective pt c/o "burning" in left leg. appearance of redness of leg was worse yesterday; perhaps modestly better today. eating well. no other complaints. Review of Systems Constitutional: no fever, no chills, no fatigue and no anorexia Respiratory: no cough and no dyspnea Cardiovascular: no chest pain Gastrointestinal: no diarrhea/loose stools Physical Exam Constitutional: well developed, well nourished and + morbidly obese; no acute distress ENMT: external ear and nose normal, oropharynx normal Respiratory: normal respiratory effort, lungs clear to auscultation Cardiovascular: Rate/Rhythm: regular rate and + irregularly irregular Heart Sounds: normal S1 and normal S2; no murmur Vessels: posterior tibial pulses present and dorsalis pedis pulses present; no JVD pulses - left foot - 2+ Gastrointestinal (Abdomen): normal bowel sounds, soft, nontender, no hepatosplenomegaly Skin: background of venous stasis changes/hyperpigmentation b/l shins. cellulitis of LLE extending from inferior to tibial plateau on left down to dorsum of foot. the erythema encircles the leg to the posterior calf region. mild warmth. no crepitus to palpation. no abscess any location. Psychiatric: A+Ox3, euthymic affect Results & Data Vital Signs (Past 12 Hours) Vital Signs Temp Pulse Resp BP Pulse Ox 09/20/18 07:05 36.5 C 83 18 128/76 95 09/19/18 23:13 36.8 C 70 20 109/73 92 Laboratory Results Laboratory Results - last 24 hr 09/19/18 09/20/18 13:43 05:52 Creatinine 0.90 Est Cr Clr Drug Dosing 97.0 Est GFR ( Amer) 99.2 Est GFR (Non-Af Amer) 85.6 Vancomycin Trough 13.0 PG Care Time/CCT Total # of Minutes Spent Total Time Spent with Patient: Total time spent is greater than 50% in coordination of care (as documented) at patient's floor/unit and/or counseling patient: (1) Gout Chronicity: unspecified Gout etiology: unspecified cause Gout site: unspecified site Qualified Code(s): M10.9 - Gout, unspecified (2) HTN (hypertension) Hypertension type: essential hypertension Qualified Code(s): I10 - Essential (primary) hypertension
[2018-09-20] MEDS ORDERED: ALLOPURINOL 300 MG TAB PO ONE (11:15)
[2018-09-20] MEDS: KETOROLAC TROMETHAMINE 15 MG/ML VIAL IV SCH ×2 (12:13→16:44)
[2018-09-20] MEDS: ATORVASTATIN 40 MG TAB PO SCH (21:30)
[2018-09-21] MEDS ORDERED: VANCOMYCIN TROUGH ONE (05:30)
[2018-09-21 05:48] LABS: Hematocrit (blood only) 37.2 % (42-52); Hemoglobin 12.6 g/dL (14.0-18.0); Mean Corpuscular Hgb Conc 33.9 g/dL (32-36); Mean Corpuscular Volume 95.9 fL (80-100); Mean Platelet Volume 10.2 fL (7.4-10.4); Platelet Count 188 K/uL (130-400); RDW Coefficient of Variation 13.7 % (11.5-14.5); RDW Standard Deviation 47.6 fL (36.4-46.3); Red Blood Count 3.88 M/uL (4.7-6.1); White Blood Count 5.06 K/uL (4.8-10.8)
[2018-09-21] MEDS: VANCOMYCIN HCL 1,750 MG in SODIUM CHLORIDE 0.9% 500 ML IV SCH ×2 (06:15→21:52)
[2018-09-21 06:28] LABS: BUN Creatinine Ratio 18.5 (10-20); Calcium 9.3 mg/dl (8.5-10.1); Creatinine Clr Calc Pharmacy 99.3 ml/min; Est GFR (African American) 100.2; Est GFR (Non-African American) 86.4; Potassium 3.9 mmol/L (3.5-5.1)
--- NOTE | 2018-09-21 08:16 | Pharmacy Report ---
Pharmacy Abx Dose Short Note - Date of Service September 21, 2018 - Assessment & Plan Assessment 73 year old M receiving IV Vancomycin and Ceftriaxone for treatment of LLE Cellulitis Day # 4 of antimicrobial therapy Patient was not responding to Cefazolin prior to starting Vancomycin + Ceftriax one Plan Vancomycin * Trough level of 24.8 mcg/mL is supratherapeutic * Change to 1750 mg IV every 12 hours (will start 1st dose late secondary to supratherapeutic trough this AM) * Goal trough level for cellulitis: 15 to 20 mcg/mL * Trough level ordered for: 09/23/18 prior to the 4th dose Pharmacy will continue to follow and will adjust dose/frequency as necessary. Thank you.
[2018-09-21] MEDS: COLCHICINE 0.6 MG TAB PO SCH (08:19)
[2018-09-21] MEDS: METOPROLOL TARTRATE 100 MG TAB PO SCH ×2 (08:19→20:40)
[2018-09-21] MEDS: CEROVITE ADV FORMULA TAB PO SCH (08:19)
[2018-09-21] MEDS: dilTIAZem ER 180 MG CAPCR PO SCH (08:19)
[2018-09-21] MEDS: APIXABAN 5 MG TABLET PO SCH ×2 (08:19→20:41)
[2018-09-21] MEDS ORDERED: ALLOPURINOL 300 MG TAB PO SCH (09:00)
[2018-09-21] MEDS: cefTRIAXone SODIUM 2,000 MG in DEXTROSE 5% 50 ML IV SCH (09:05)
[2018-09-21] MEDS ORDERED: IBUPROFEN 800 MG TAB PO STA (10:28)
[2018-09-21] MEDS: OXYCODONE HCL IR 5 MG TAB (IMMEDIATE RELEASE) PO PRN (10:41)
[2018-09-21] MEDS: ALLOPURINOL 300 MG TAB PO SCH (10:41)
[2018-09-21] MEDS: FUROSEMIDE 40 MG TAB PO SCH (10:41)
[2018-09-21] MEDS: ACETAMINOPHEN 500 MG TAB PO SCH ×2 (13:35→20:39)
--- NOTE | 2018-09-21 15:45 | CT Scan Report ---
CT tib/fib LT wo con CT DOSE: CLINICAL HISTORY: Left lower extremity pain. Cellulitis. Evaluate for abscess. TECHNIQUE: Helical images were acquired through the left lower leg. No intravenous contrast was admin istered. A dose lowering technique was utilized adhering to the principles of ALARA. COMPARISON STUDY: None. FINDINGS: There are extensive vascular calcifications. There is cutaneous and subcutaneous edema consistent with the clinical history of a cellulitis. There are no fluid collections to indicate an abscess. There are no fractures. There are no bony destructive changes to indicate osteomyelitis. There are moderately advanced osteoarthritic changes within the knee. IMPRESSION: 1. Cutaneous and subcutaneous edema consistent with the clinical history of cellulitis 2. No evidence of abscess on this noncontrast study 3. There are no bony destructive changes to indicate osteomyelitis 4. Moderate osteoarthritis within the knee 5. Extensive vascular calcifications Electronically signed by: Evan Rocha M.D. 09/21/2018 3:44 PM
[2018-09-21] MEDS: TRAMADOL HCL 50 MG TABLET PO PRN (15:52)
--- NOTE | 2018-09-21 20:15 | Hospitalist Progress Note ---
Date of Service September 21, 2018 Assessment & Plan (1) Cellulitis of left lower extremity: Slowly improving but infection has been relatively stubborn as is common with leg cellulitis in background of venous insufficiency. In light of ongoing c/o pain in LLE I obtained CT of left leg. NO osto. NO nec fasc. NO abscess or deep infection -- just cellulitis. Continue Vancomycin and Rocephin. Previously on Ancef at admission w/o improvement. Elevate leg. Circulation appears clinically intact on exam. Continue pain control. (2) Atrial fibrillation with RVR: Treated with Cardizem drip in the ED then transitioned back to PO diltiazem 360mg daily. Cont metoprolol. Cont eliquis BID. Controlled. (3) Gout: acute gout flare, right MTP joint - resolved. Resumed allopurinol. Stopped colchicine. (4) Acute kidney injury: Peak Cr 1.4 -- resolved. Resumed lasix. (5) HTN (hypertension): Treated with metoprolol and diltiazem BP stable/controlled (6) DVT prophylaxis: eliquis slowly improving Subjective had good day yesterday with minimal to NO pain. then had pain in posterior left distal leg overnight. describes pain as "burning." no diarrhea. no dyspnea. no new complaints. eating 100% of meals. Review of Systems Constitutional: no fever Respiratory: no dyspnea Cardiovascular: no chest pain Gastrointestinal: no abdominal pain Physical Exam Constitutional: well developed, well nourished and + morbidly obese; no acute distress ENMT: external ear and nose normal, oropharynx normal Respiratory: normal respiratory effort, lungs clear to auscultation Cardiovascular: Rate/Rhythm: regular rate and + irregularly irregular Heart Sounds: normal S1 and normal S2; no murmur Vessels: posterior tibial pulses present and dorsalis pedis pulses present; no JVD Gastrointestinal (Abdomen): normal bowel sounds, soft, nontender, no hepatosplenomegaly Skin: left leg - erythema overlying rehman (from tibial plateau down to dorsum of foot) IMPROVED today. background of hyperpigmentation from venous stasis changes present b/l. posterior left calf is worst area - copious erythema. no crepitus, no abscess but mildly tender to palpation in this posterior left leg location. Psychiatric: A+Ox3, euthymic affect Results & Data Vital Signs (Past 12 Hours) Vital Signs Temp Pulse Resp BP Pulse Ox 09/21/18 15:58 36.5 C 67 18 107/63 93 Laboratory Results Laboratory Results - last 24 hr 09/21/18 09/21/18 09/21/18 05:32 05:32 05:32 WBC 5.06 RBC 3.88 L Hgb 12.6 L Hct 37.2 L MCV 95.9 MCH 32.5 MCHC 33.9 RDW Std Deviation 47.6 H RDW Coeff of Kalin 13.7 Plt Count 188 MPV 10.2 Sodium 137 Potassium 3.9 Chloride 102 Carbon Dioxide 29 Anion Gap 6.0 BUN 16 Creatinine 0.88 Est Cr Clr Drug Dosing 99.3 Est GFR ( Amer) 100.2 Est GFR (Non-Af Amer) 86.4 BUN/Creatinine Ratio 18.5 Glucose 78 Calcium 9.3 Vancomycin Trough 24.8 PG Care Time/CCT Total # of Minutes Spent Total Time Spent with Patient: Total time spent is greater than 50% in coordination of care (as documented) at patient's floor/unit and/or counseling patient: (1) Gout Chronicity: unspecified Gout etiology: unspecified cause Gout site: unspecified site Qualified Code(s): M10.9 - Gout, unspecified (2) HTN (hypertension) Hypertension type: essential hypertension Qualified Code(s): I10 - Essential (primary) hypertension
[2018-09-21] MEDS: ATORVASTATIN 40 MG TAB PO SCH (20:40)
[2018-09-22] MEDS: OXYCODONE HCL IR 5 MG TAB (IMMEDIATE RELEASE) PO PRN ×3 (04:42→17:26)
[2018-09-22 06:02] LABS: Hematocrit (blood only) 36.2 % (42-52); Hemoglobin 12.2 g/dL (14.0-18.0); Mean Corpuscular Hgb Conc 33.7 g/dL (32-36); Mean Corpuscular Volume 94.8 fL (80-100); Mean Platelet Volume 10.3 fL (7.4-10.4); Platelet Count 178 K/uL (130-400); RDW Coefficient of Variation 13.7 % (11.5-14.5); RDW Standard Deviation 47.6 fL (36.4-46.3); Red Blood Count 3.82 M/uL (4.7-6.1); White Blood Count 5.16 K/uL (4.8-10.8)
[2018-09-22 06:30] LABS: Alanine Aminotransferase 74 U/L (12-78); Albumin Level 2.7 gm/dl (3.4-5.0); Alkaline Phosphatase 126 U/L (45-117); Aspartate Aminotransferase 32 U/L (15-37); Bilirubin Direct < 0.1 mg/dl (0-0.2); Bilirubin,Total 0.4 mg/dl (0.2-1); Total Protein 6.1 gm/dl (6.4-8.2)
[2018-09-22] MEDS: ALLOPURINOL 300 MG TAB PO SCH (08:31)
[2018-09-22] MEDS: APIXABAN 5 MG TABLET PO SCH ×2 (08:31→21:33)
[2018-09-22] MEDS: FUROSEMIDE 40 MG TAB PO SCH (08:31)
[2018-09-22] MEDS: METOPROLOL TARTRATE 100 MG TAB PO SCH ×2 (08:31→21:36)
[2018-09-22] MEDS: CEROVITE ADV FORMULA TAB PO SCH (08:31)
[2018-09-22] MEDS: dilTIAZem ER 180 MG CAPCR PO SCH (08:31)
[2018-09-22] MEDS: cefTRIAXone SODIUM 2,000 MG in DEXTROSE 5% 50 ML IV SCH (08:32)
[2018-09-22] MEDS: ACETAMINOPHEN 500 MG TAB PO SCH ×3 (08:32→21:32)
[2018-09-22] MEDS: VANCOMYCIN HCL 1,750 MG in SODIUM CHLORIDE 0.9% 500 ML IV SCH ×2 (10:22→21:42)
--- NOTE | 2018-09-22 19:46 | CT Scan Report ---
CT SCAN OF THE BRAIN WITHOUT IV CONTRAST CLINICAL HISTORY: Headache. COMPARISON STUDY: No priors. TECHNIQUE: Unenhanced axial CT scan of the brain is performed from the vertex to the skull base. A do se lowering technique was utilized adhering to the principles of ALARA. CT DOSE: 614.27 mGy.cm FINDINGS: Brain parenchyma: There is infiltrative soft tissue lesion suggested in the region of the sella turci ca/left sphenoid sinus. There is permeative destruction of the clivus and the sinus wall, and this cl osely abuts the left carotid artery. This may extend into the medial left temporal fossa. There are a ge-related involutional changes noting mild subcortical and periventricular microangiopathic change. There is no hemorrhage, midline shift, or evidence of acute territorial ischemia by CT criteria. Gra y-white matter differentiation is preserved. No extra-axial fluid collection is seen. Ventricles, sulci, cisterns: Prominent secondary to involutional change. Intracranial vasculature: There is atherosclerotic calcification of the cavernous carotid arteries.. Calvarium: No depressed calvarial fracture is seen. See above. Sinuses and mastoids: The visualized paranasal sinuses are clear. The mastoid air cells are well pneu matized. Orbits: The bony orbits are grossly intact. IMPRESSION: 1. There is no hemorrhage, midline shift, or evidence of acute territorial ischemia by CT criteria. 2. Findings are highly suspicious for a mass lesion centered in the region of the sella turcica/left sphenoid sinus as detailed above. There is associated permeative destruction of the clivus, and corre lation with a contrast-enhanced MRI is recommended for further assessment. Electronically signed by: Damon Parmar M.D. 09/22/2018 7:45 PM
[2018-09-22] MEDS: ATORVASTATIN 40 MG TAB PO SCH (21:34)
--- NOTE | 2018-09-22 21:56 | Hospitalist Progress Note ---
Date of Service September 22, 2018 Assessment & Plan (1) Cellulitis of left lower extremity: again continues to improve. CT LLE yesterday with cellulitis only; no abscess/phlegmon or deeper infection. NO osteomyelitis. Continue Vancomycin and Rocephin 1 more day then transition to PO abx tomorrow. Previously on Ancef at admission w/o improvement. Elevate leg. Circulation appears clinically intact on exam. Continue pain control. (2) Atrial fibrillation with RVR: Treated with Cardizem drip in the ED then transitioned back to PO diltiazem 360mg daily. Cont metoprolol. Cont eliquis BID. Controlled but rates actually slow at times with mild relative hypotension. Lower diltiazem to 270mg daily starting in am. consider lowering metoprolol as well. (3) Gout: acute gout flare, right MTP joint - resolved. Cont allopurinol. Stopped colchicine. (4) Acute kidney injury: Peak Cr 1.4 -- resolved. Resumed lasix. (5) HTN (hypertension): Treated with metoprolol and diltiazem BP stable/controlled but low at times -- reduce diltiazem dose as above (6) Pituitary adenoma: known history - present for years. followed at [facility]. Took what sounds like bromocriptine in the past. given his headaches will obtain CT head to check status of adenoma (and rule out ICH in light of eliquis use). check TSH, free T4, cortisol to assess hormone production from pituitary. Present on Admission?: Yes (7) Headache: check CT head, r/o ICH from eliquis use. also check status of KNOWN pituitary adenoma. if CT stable - tension headache? (8) DVT prophylaxis: eliquis ambulate hopefully d/c home in AM Subjective patient continues to have daily headaches. usually does not have headaches at home. frontal in location; today it was relieved with tylenol. left leg pain slowly improving. not terribly active - has not walked today outside the room. eating 100% of meals. Review of Systems Constitutional: no fever, no chills, no fatigue and no anorexia Respiratory: no cough and no dyspnea Cardiovascular: no chest pain Gastrointestinal: no nausea, no vomiting and no diarrhea/loose stools Physical Exam Constitutional: well developed, well nourished and + morbidly obese; no acute distress ENMT: external ear and nose normal, oropharynx normal Respiratory: normal respiratory effort, lungs clear to auscultation Cardiovascular: Rate/Rhythm: + bradycardic and + irregularly irregular Heart Sounds: normal S1 and normal S2; no murmur Vessels: posterior tibial pulses present and dorsalis pedis pulses present; no JVD Extremities: no edema Gastrointestinal (Abdomen): normal bowel sounds, soft, nontender, no hepatosplenomegaly Skin: hyperpigmentation/venous stasis changes b/l shins. LLE - erythema again improved today over rehman/posterior distal leg; not as red - more brawny/pink today. Erythema receding from previously placed demarkation lines at the tibial plateau and the foot. Erythema over left foot nearly resolved. pulses left foot 1-2+ Psychiatric: A+Ox3, euthymic affect Results & Data Vital Signs (Past 12 Hours) Vital Signs Temp Pulse Resp BP Pulse Ox 09/22/18 21:37 55 L 102/63 09/22/18 14:43 36.6 C 40 L 18 95 09/22/18 14:31 49 L 93/56 L Laboratory Results Laboratory Results - last 24 hr 09/22/18 09/22/18 05:38 05:38 WBC 5.16 RBC 3.82 L Hgb 12.2 L Hct 36.2 L MCV 94.8 MCH 31.9 MCHC 33.7 RDW Std Deviation 47.6 H RDW Coeff of Kalin 13.7 Plt Count 178 MPV 10.3 Total Bilirubin 0.4 Direct Bilirubin < 0.1 AST 32 ALT 74 Alkaline Phosphatase 126 H Total Protein 6.1 L Albumin 2.7 L PG Care Time/CCT Total # of Minutes Spent Total Time Spent with Patient: Total time spent is greater than 50% in coordination of care (as documented) at patient's floor/unit and/or counseling patient: (1) Gout Gout site: unspecified site Gout etiology: unspecified cause Chronicity: unspecified Qualified Code(s): M10.9 - Gout, unspecified (2) HTN (hypertension) Hypertension type: essential hypertension Qualified Code(s): I10 - Essential (primary) hypertension (3) Headache Headache type: unspecified Headache chronicity pattern: acute headache Intractability: intractable Qualified Code(s): R51 - Headache
[2018-09-23] MEDS: OXYCODONE HCL IR 5 MG TAB (IMMEDIATE RELEASE) PO PRN ×2 (01:52→09:13)
[2018-09-23] MEDS ORDERED: VANCOMYCIN TROUGH ONE ×2 (05:30→09:30)
[2018-09-23] MEDS ORDERED: dilTIAZem ER 120 MG CAPCR PO SCH (09:00)
[2018-09-23] MEDS: cefTRIAXone SODIUM 2,000 MG in DEXTROSE 5% 50 ML IV SCH (09:13)
[2018-09-23] MEDS: ALLOPURINOL 300 MG TAB PO SCH (09:13)
[2018-09-23] MEDS: APIXABAN 5 MG TABLET PO SCH (09:14)
[2018-09-23] MEDS: CEROVITE ADV FORMULA TAB PO SCH (09:14)
[2018-09-23] MEDS: FUROSEMIDE 40 MG TAB PO SCH (09:14)
[2018-09-23] MEDS: ACETAMINOPHEN 500 MG TAB PO SCH ×2 (09:14→14:01)
[2018-09-23] MEDS: METOPROLOL TARTRATE 100 MG TAB PO SCH (09:14)
[2018-09-23 09:38] LABS: Creatinine Clr Calc Pharmacy 80.9 ml/min; Est GFR (African American) 79.6; Est GFR (Non-African American) 68.7
[2018-09-23 09:48] LABS: T4 Free Thyroxine 1.19 ng/dl (0.8-1.6)
[2018-09-23] MEDS: VANCOMYCIN HCL 1,750 MG in SODIUM CHLORIDE 0.9% 500 ML IV SCH (10:06)
--- NOTE | 2018-09-23 10:55 | Pharmacy Report ---
Pharmacy Abx Dose Short Note - Date of Service September 23, 2018 - Assessment & Plan Assessment 73 year old M receiving IV Vancomycin and Ceftriaxone for treatment of LLE Cellulitis * Pt failed tx with cefazolin prior to starting Vancomycin + Ceftriaxone Day # 8 of antimicrobial therapy with vanco + ceftriaxone Plan Vancomycin * Trough level of 23.1 mcg/mL is supratherapeutic for cellulitis (no osteomyelitis) * Change to 1,500 mg (12.3mg/kg for obesity/BMI >35) IV every 12 hours * Next dose due today at 1400 * May skip this dose if changing to PO abx * Goal trough level for cellulitis : 10 to 20 mcg/mL Ceftriaxone * Dosing not per pharmacy consult; but dosing is adequate at 2,000mg IV Q24hrs * Next dose today @ 1130 Pharmacy will continue to follow and will adjust dose/frequency as necessary. Thank you.
[2018-09-23] MEDS ORDERED: VANCOMYCIN HCL 1,500 MG in SODIUM CHLORIDE 0.9% 500 ML IV SCH (14:00)
--- NOTE | 2018-09-28 12:50 | Discharge Summary ---
Date of Service date of admission - 09/15/18 date of discharge - 09/23/18 Admission HPI Per Admitting Provider 73-year-old male with chronic atrial fibrillation who takes metoprolol, diltiazem, Eliquis. He is uncertain if he has been taking his medications appropriately. He developed swelling and erythema and tenderness of the left lower extremity between the knee and the ankle over the past several days. He has been working outside and actually increased his Lasix dosage because he was developing some edema in the left lower extremity. He also appears to have developed acute gout of the right great toe at the first metatarsalphalangeal joint. He was given intravenous metoprolol in the ED but remained tachycardic and then was started on a Cardizem drip. His heart rate is now slowing down. He denies any chest pain or shortness of breath whatsoever. Troponin is normal. He is volume depleted with acute kidney injury. Creatinine is up to 1.4 with baseline 1.1. Venous Doppler of the left leg is negative. Chest x-ray clear. He has been given intravenous Ancef for the cellulitis of the left lower extremity and he will be treated with colchicine for the acute gout. All diuretics are on hold. Principal Diagnosis LLE cellulitis Discharge Exam Constitutional well developed, well nourished and + morbidly obese; no acute distress ENMT external ear and nose normal, oropharynx normal Respiratory normal respiratory effort, lungs clear to auscultation Cardiovascular Rate/Rhythm: regular rate and + irregularly irregular Heart Sounds: normal S1 and normal S2; no murmur Vessels: posterior tibial pulses present and dorsalis pedis pulses present; no JVD Extremities: no edema Gastrointestinal (Abdomen) normal bowel sounds, soft, nontender, no hepatosplenomegaly Musculoskeletal no gouty arthritis of either foot Skin venous stasis hyperpigmentation b/l shins; LLE cellulitis markedly improved relative to earlier exams; this area extends from the tibial plateau area infer ior to the left ankle/foot; the dorsal surface of left foot is now free of erythema; skin is light pink on left rehman and scantly warm to touch. Psychiatric A+Ox3, euthymic affect Discharge Data Allergies Allergy/AdvReac Type Severity Reaction Status Date / Time No Known Allergies Allergy Unknown Unverified 09/15/18 15:27 Ordered Studies 1. venous doppler LLE - negative DVT. 2. CT left leg - cellulitis but no deep infection such as phlegmon, abscess, necrotizing fascitis or osteomyelitis. 3. CT head - IMPRESSION: 1. There is no hemorrhage, midline shift, or evidence of acute territorial ischemia by CT criteria. 2. Findings are highly suspicious for a mass lesion centered in the region of the sella turcica/left sphenoid sinus as detailed above. There is associated permeative destruction of the clivus, and correlation with a contrast-enhanced MRI is recommended for further assessment. Hospital Course (1) Cellulitis of left lower extremity: Initially on monotherapy with Ancef but had lack of clinical response. Changed to IV rocephin with vancomycin and DID indeed improve with such. Received 7+ days of IV rocephin/vanco. CT LLE with cellulitis only; no abscess/phlegmon or deeper infection. NO osteomyelitis. At discharge he will continue elevation and take 7 days each of omnicef 300mg BID AND doxycycline 100mg BID. Advised follow-up with PCP within 3 days to recheck the left leg. (2) Atrial fibrillation with RVR: Treated with Cardizem drip in the ED then transitioned back to PO diltiazem 360mg daily shortly after. Rates remained well-controlled for the rest of his stay. In fact he had several episodes of bradycardia and thus his cardizem dose was reduced to 240mg once daily. He will continue metoprolol as previous. He will continue eliquis BID for anticoagulation. (3) Gout: Acute gout flare, right MTP joint - resolved with colchicine. Continue allopurinol prophylaxis. (4) Acute kidney injury: Peak Cr 1.4 -- resolved. Resumed lasix prior to discharge. Discharge Cr was 1. (5) HTN (hypertension): Treated with metoprolol and diltiazem. BP stable/controlled but low at times -- reduced diltiazem dose as above. (6) Pituitary adenoma: Known history - present for years. Followed at [facility]. Took what sounds like bromocriptine in the past. Records from [facility] reviewed - he hadn't had imaging in [address] head to check status of adenoma was done. CT head findings seem similar to the reports we had received from prior MRI. Since he had not seen his physicians at [facility] in 18+ months we asked him to establish care again with them. [facility] was contacted and they will be arranging follow-up for Mr Virk in the neurosurgery clinic. TSH, free T4, and cortisol were all normal. He had NO visual field cuts on exam. (7) Headache: Suspect tension headaches in the midst of his illness. CT head without acute findings, ICH, etc. See "pituitary adenoma" above for additional information. Total Time Total Time Spent Total Time Spent (In Minutes): 40 Total Time Includes: Examination of the Patient, Discharge Planning, Medication Reconciliation and Communication With Other Providers Discharge Plan Discharge Items Patient Disposition: Home - Self-Care Reason For Visit: UNCONTROLLED A FIB; CELLULITIS LEFT LEG Discharge Diagnosis: 1. left leg cellulitis - MUCH improved. 2. a.fib - well-controlled. Discharge Goals: Decrease discomfort, Diagnostic testing and Therapeutic intervention Activity: Resume your previous activity Non-emergency contact: Primary Care Provider and Specialist Call non-emergency contact if: you have any medication questions, your symptoms worsen, your pain is not controlled, your pain is worsening and your temperature is above 100.5 Follow-up/Referrals: Dr. Latrell Viveros [Other] (Please, follow up with Dr. Viveros. Someone from this office is to contact you with appointment information. If you have any questions, call the office at [phone].) Vicky Rose CRNP [Primary Care Provider] - 09/27/18 10:00 am (Please, follow up at [facility] in [place] with Vicky FINLEY on ThursdayAugust 27 at 10:00 am. *If you need to change this appointment, call the office at [phone].) Diet: Heart Healthy [facility] Provider Instructions: You were treated for uncontrolled a.fib and left leg cellulitis. The a.fib is under very good control at this time. The left leg cellulitis improved with a long course of IV antibiotics. Recommendations - 1. Antibiotics - start these on the AM of 09/24/18 - * cefdinir 300mg twice daily for 7 days * doxycycline 100mg twice daily for 7 days * the doxycycline can cause heartburn * the doxycycline can also cause a rash if you go out in the sun; thus, cover up and use sunscreen while on the doxycycline * also take a 'probiotic' for the next 10 days to prevent diarrhea from the antibiotics 2. elevate your left leg when sitting or laying in bed 3. for your a.fib - - take diltiazem 240mg once daily; start AM of 09/24/18 - new script sent to your pharmacy - take metoprolol 100mg twice daily; be sure to take your next dose tonight 4. pain - * may use oxycodone pain medication 5mg every 4 hours as needed * DO NOT DRIVE A CAR WHILE TAKING NARCOTIC PAIN MEDS; do not drink alcohol while taking narcotic pain meds * these will also cause constipation * these will cause drowsiness * may use [id number] tylenol as needed; max 3000mg in 24 hours 5. STOP your spironolactone-hydrochlorothiazide 6. take the CD with your CAT scan of the [facility] [place] when you see the neurosurgeon for your pituitary adenoma Follow-up -- see separate section Return to [facility] if -- - you have fevers over 100.5 degrees - your leg redness is worsening - your leg pain is worsening despite tylenol and/or oxycodone - you have severe diarrhea - any other concerns Prescriptions: New oxycodone 5 mg Tablet 5 mg PO Q4H PRN (Reason: pain) Qty: 15 RF: 0 cefdinir 300 mg capsule 300 mg PO BID 7 Days Qty: 14 RF: 0 doxycycline hyclate 100 mg tablet 100 mg PO BID 7 Days Qty: 14 RF: 0 Saccharomyces boulardii 250 mg capsule 250 mg PO DAILY 10 Days Qty: 10 RF: 0 diltiazem HCl 240 mg capsule,extended release 24 hr 240 mg PO DAILY Qty: 30 RF: 5 Continued atorvastatin [Lipitor] 40 mg tablet 40 mg PO HS RF: 0 metoprolol tartrate [Lopressor] 100 mg tablet 100 mg PO BID RF: 0 potassium chloride [Klor-Con M20] 20 mEq tablet,ER particles/crystals 20 meq PO QAM RF: 0 ranitidine HCl [Zantac] 150 mg tablet 150 mg PO BID RF: 0 allopurinol [Zyloprim] 300 mg tablet 300 mg PO QAM RF: 0 Centrum Silver Men 300-600-300 mcg Tablet 1 tab PO QAM RF: 0 Eliquis 5 mg tablet 5 mg PO BID RF: 0 acetaminophen [Tylenol Extra Strength] 500 mg Tablet 1,000 mg PO UD PRN (Reason: Pain) RF: 0 diphenhydramine-acetaminophen [Tylenol PM Extra Strength] 25-500 mg Tablet 1 - 2 tab PO HS PRN (Reason: Pain/Sleep) RF: 0 colchicine 0.6 mg capsule See Rx Instructions .ROUTE .COMPLEX RF: 0 furosemide [Lasix] 40 mg tablet 40 mg PO QAM Qty: 30 RF: 5 Discontinued spironolacton-hydrochlorothiaz [Aldactazide] 25-25 mg tablet 1 tab PO QAM RF: 0 Stand-Alone Forms: [facility] Discharge Orders: Discharge Order (Routine); Ordered 09/23/18 Ordered By: Ilia Robertson Admission Data Admit Date/Time: 09/15/18 16:47 Attending Provider: Ilia Robertson Admit Provider: Ray Waterman Primary Care Provider: Vicky Rose Other Providers: Ray Waterman Service: Medical Other Interventions: Discharge Summary Assessment (RN) Last Done: 09/23/18 17:44 DC Date/Time DO NOT enter until pt leaves facility: 09/23/18 19:07
== END 2018-09-23 19:07 | disposition home or self-care (01) | DRG 603 ==
LOC: ED 14:26 → 2S 16:47 → SUATTDRO 16:47 → 2S 17:50 → 4W 09-16 16:27
DX: I87.2 Venous insufficiency (chronic) (peripheral); Z86.718 Personal history of other venous thrombosis and embolism; D35.2 Benign neoplasm of pituitary gland; I48.91 Unspecified atrial fibrillation; N17.9 Acute kidney failure, unspecified; I10 Essential (primary) hypertension; Z82.49 Family history of ischemic heart disease and other diseases of the circulatory system; L03.116 Cellulitis of left lower limb; Z79.01 Long term (current) use of anticoagulants; M10.071 Idiopathic gout, right ankle and foot

== ENCOUNTER 2020-10-16 16:21 | Inpatient (IN) ==
[2020-10-16] MEDS ORDERED: CEFEPIME 2,000 MG/20 ML VIAL IV STA (16:46)
[2020-10-16] MEDS ORDERED: ALBUT/IPRATROP 3MG/0.5MG NEB 3 ML VIAL NEB STA (16:46)
--- NOTE | 2020-10-16 16:52 | Emergency Department Note ---
Impression & Plan Hypotension, Cough, SOB (shortness of breath), Acute UTI, Dizziness ED Provider Note NAME: MAINE YEAGER AGE: 75 SEX: M : 1945 ARRIVES VIA: Ambulance INFORMANT: [Patient] ED PROVIDER(S): [Damon Oliva MD] CHIEF COMPLAINT: Shortness of breath HISTORY OF PRESENT ILLNESS: The patient is a 75-year-old male who has had about 6 days of some cough and shortness of breath. The cough is worsening and is occasionally productive. Patient has had some sweats, no documented fever. He has felt weak. No real chest pain. He has had nausea, no vomiting, no diarrhea. The patient was out side in the warm environment today and began to feel more short of breath and weak. The ambulance was summoned. The patient also admits that he has a history of UTI. He had 2 this year already. He has had about 5 days of some urinary burning and is concerned he may have another UTI. Patient has been dizzy at times, especially with standing. No syncope. Patient states that he is vaccinated against COVID-19. The patient states that he has not slept well the last few days because of all the coughing. REVIEW OF SYSTEMS: See HPI for pertinent positives and negatives. A total of ten systems were reviewed and were otherwise negative. PMHx/PSHx: See Below SOCIAL HISTORY: See Below. PHYSICAL EXAM: GENERAL: Patient is in no acute distress. HEENT: No acute trauma, normocephalic atraumatic, mucous membranes moist, no nasal congestion, no scleral icterus. NECK: No stridor, no adenopathy, no meningismus, trachea is midline. LUNGS: He does have a dry cough. There is wheezing bilaterally. No respiratory distress. HEART: Without murmurs gallops or rubs, irregular rhythm, normal rate. ABDOMEN: Soft, nontender, bowel sounds positive, no hernias, no peritonitis. EXTREMITIES: No cyanosis, mild bilateral pedal edema with some chronic skin change, full range of motion of all the joints without pain or difficulty, no signs for acute trauma. NEUROLOGIC: Oriented x 3, no acute motor or sensory deficits, no focal weakness. SKIN: No rash, no jaundice, no diaphoresis. DIFFERENTIAL DIAGNOSIS: Sepsis, UTI, pneumonia, metabolic abnormality, COVID-19, electrolyte abnormalities, cardiac sources, cellulitis, UTI, bacteremia, intracerebral event, toxicologic etiology, neurologic event, as well as other pathologies. EMERGENCY DEPARTMENT COURSE/PROCEDURES: ECG: Indication was shortness of breath. The ECG shows atrial fibrillation with some baseline artifact. The rate is 99. There is no ST elevation, no PVCs. The QTc is 397. Continuous Cardiac Monitoring: An order was placed for continuous cardiac monitoring. The monitor shows a rate of 101 with atrial fibrillation. Critical Care Note: I have personally spent 41 minutes of critical care time in the direct management of this patient. This includes bedside care, interpretation of diagnostic studies, and testing, discussion with consultants, patient, and family members, and other required patient management activities. This 41 minutes is in excess of all separately billable procedures. MEDICAL DECISION MAKING: There is no leukocytosis or concerning anemia. There is a normal platelet count. No coagulopathy. Creatinine was slightly elevated consistent with dehydration/acute kidney injury. Magnesium somewhat low at 1.5. Lactic acid level was not elevated making severe sepsis less likely. No worrisome liver enzyme elevation. Urinalysis is consistent with infection. Covid testing returned negative. Chest film did not show pneumonia or CHF. On exam, the patient was hypotensive. He was somewhat tachycardic and in atrial fibrillation . Wheezing was noted on lung exam. The patient was given IV saline, 1 L. He received IV magnesium and IV cefepime. He was given albuterol via MDI. The patient presents hypotensive, tachycardic. He has been dizzy. He has been short of breath. He does meet criteria for potential sepsis with the lower blood pressure, the tachycardia and the findings of UTI. The patient is markedly better after his IV fluids and his care here in the ED. I do think a hospital stay is warranted. I did speak with the patient and case management. The on-call hospitalist was consulted. Past Med/Surg History Medical History Acute kidney injury Acute kidney injury Atrial fibrillation Atrial fibrillation with RVR Cellulitis of left lower extremity Diverticulosis GERD (gastroesophageal reflux disease) Gout Gout Heart disease History of blood clots HTN (hypertension) Internal hemorrhoids Osteoarthritis Pituitary tumor Surgical History H/O colonoscopy History of basal cell carcinoma excision Family History Mother Stroke Hypertension Father Hypertension Other Heart disease Social History Smoking Status: Never smoker Second Hand Exposure: No; Hx Alcohol Use: Yes Alcohol type: beer Hx Substance Use: No Preferred Language: Moroccan Communication Ability: Effective Manager Management Required: No Beliefs That Will Affect Care: None marital status: Single Current Living Situation: Alone How many Children do You have: 0 Feels Safe at Home: Yes Assistive Devices: Cane Allergies Allergies Allergy/AdvReac Type Severity Reaction Status Date / Time No Known Allergies Allergy Unknown Verified 10/16/20 17:25 Home Meds Home Medications Medication Instructions Recorded Confirmed apixaban 5 mg tablet (Eliquis) 5 mg PO BID 05/03/18 10/16/20 atorvastatin 40 mg tablet (Lipitor) 40 mg PO HS 05/03/18 10/16/20 metoprolol tartrate 100 mg tablet 100 mg PO BID 05/03/18 10/16/20 (Lopressor) ffcgsusc-gyl-rclap acid 300 1 tab PO QAM 05/03/18 10/16/20 mcg-lycopene 600 mcg-lutein 300 mcg tablet (Centrum Silver Men) duloxetine 30 mg capsule,delayed 30 mg PO DAILY 10/16/20 10/16/20 release famotidine 20 mg tablet 20 mg PO BID 10/16/20 10/16/20 furosemide 40 mg tablet (Lasix) 40 mg PO UD 10/16/20 10/16/20 potassium chloride 20 mEq 20 meq PO DAILY 10/16/20 10/16/20 tablet,extended release spironolactone 25 1 tab PO DAILY 10/16/20 10/16/20 mg-hydrochlorothiazide 25 mg tablet tamsulosin 0.4 mg capsule 0.4 mg PO DAILY 10/16/20 10/16/20 tramadol 50 mg tablet 50 mg PO BID PRN 10/16/20 10/16/20 Previous Rx's Medication Instructions Recorded diltiazem HCl 240 mg capsule,24 240 mg PO DAILY #30 cap 09/23/18 hr,extended release Results & Data (ED) Vital Signs Vital Signs - 24 hr 10/16/20 16:34 10/16/20 17:04 10/16/20 17:05 Temperature 37.0 C Temperature Source Oral Pulse Rate 106 H 110 H Pulse Rate [Right Finger] Pulse Rate from SpO2 Sensor 113 H Respiratory Rate 20 19 Respiratory Effort / Characteristics Spontaneous Labored Short of Breath Blood Pressure 89/68 L 113/80 Blood Pressure Mean 75 91 Pulse Oximetry 98 94 Oxygen Delivery Method Nasal Cannula Room Air Nasal Cannula Oxygen Flow Rate 2 2 Sepsis Recent Fever Within 48 Hours No Sepsis New/Unexplained Change in Mental Status No Sepsis Action Taken by Nursing Physician Notified 10/16/20 17:07 10/16/20 17:32 10/16/20 18:00 Temperature Temperature Source Pulse Rate 105 H 103 H Pulse Rate [Right Finger] 101 H Pulse Rate from SpO2 Sensor 125 H Respiratory Rate 22 25 H 21 Respiratory Effort / Characteristics Spontaneous Blood Pressure 120/76 Blood Pressure Mean 90 Pulse Oximetry 95 Oxygen Delivery Method Room Air Oxygen Flow Rate Sepsis Recent Fever Within 48 Hours Sepsis New/Unexplained Change in Mental Status Sepsis Action Taken by Nursing 10/16/20 18:30 10/16/20 18:45 10/16/20 19:00 Temperature Temperature Source Pulse Rate 90 87 Pulse Rate [Right Finger] Pulse Rate from SpO2 Sensor 103 H 92 H Respiratory Rate 28 H 23 Respiratory Effort / Characteristics Blood Pressure 107/71 116/66 Blood Pressure Mean 83 82 Pulse Oximetry 85 L 93 94 Oxygen Delivery Method Nasal Cannula Oxygen Flow Rate 2 2 Sepsis Recent Fever Within 48 Hours Sepsis New/Unexplained Change in Mental Status Sepsis Action Taken by [facility] Medications Current Medication List: was personally reviewed by me Laboratory Data Attestation: I reviewed the patient's lab results. Result diagrams: 10/16/20 16:00 10/16/20 16:00 Lab Results 10/16/20 10/16/20 10/16/20 Range/Units 16:00 16:00 16:00 WBC 6.44 (4.8-10.8) K/uL RBC 4.61 L (4.7-6.1) M/uL Hgb 14.8 (14.0-18.0) g/dL Hct 42.3 (42-52) % MCV 91.8 (80-100) fL MCH 32.1 (25-34) pg MCHC 35.0 (32-36) g/dL RDW Std Deviation 44.9 (36.4-46.3) fL RDW Coeff of Kalin 13.4 (11.5-14.5) % Plt Count 168 (130-400) K/uL MPV 11.2 H (7.4-10.4) fL Immature Gran % (Auto) 0.2 % Neut % (Auto) 76.5 % Lymph % (Auto) 11.8 % Bucks % (Auto) 10.7 % Eos % (Auto) 0.6 % Baso % (Auto) 0.2 % Neut # (Auto) 4.93 (1.4-6.5) K/uL Lymph # (Auto) 0.76 L (1.2-3.4) K/uL Bucks # (Auto) 0.69 H (0.11-0.59) K/uL Eos # (Auto) 0.04 (0-0.5) K/uL Baso # (Auto) 0.01 (0-0.2) K/uL Immature Gran # (Auto) 0.01 (0.00-0.02) K/uL PT (9.0-12.0) Seconds INR (0.9-1.1) APTT (21.0-31.0) Seconds PTT Ratio Sodium 137 (136-145) mmol/L Potassium 3.6 (3.5-5.1) mmol/L Chloride 102 (98-107) mmol/L Carbon Dioxide 25 (21-32) mmol/L Anion Gap 10.0 (3-11) BUN 28 H (7-18) mg/dl Creatinine 1.42 H (0.6-1.4) mg/dl Est Cr Clr Drug Dosing Not Reportable Est GFR ( Amer) 56.4 ml/min Est GFR (Non-Af Amer) 48.7 ml/min BUN/Creatinine Ratio 19.8 (10-20) Glucose 93 (70-99) mg/dl Lactate (0.4-2.0) mmol/L Calcium 9.2 (8.5-10.1) mg/dl Magnesium 1.5 L (1.8-2.4) mg/dl Total Bilirubin 0.9 (0.2-1) mg/dl AST 21 (15-37) U/L ALT 23 (12-78) U/L Alkaline Phosphatase 137 H (45-117) U/L Troponin I < 0.015 (0-0.045) ng/ml Total Protein 7.1 (6.4-8.2) gm/dl Albumin 3.7 (3.4-5.0) gm/dl Globulin 3.4 (2.5-4.0) gm/dl Albumin/Globulin Ratio 1.1 (0.9-2) Procalcitonin < 0.05 (0-0.5) ng/ml Urine Color Urine Appearance (Clear) Urine pH (4.5-7.5) Ur Specific Radom (1.000-1.030) Urine Protein (Negative) Urine Glucose (UA) (Negative) Urine Ketones (Negative) Urine Blood (Negative) Urine Nitrite (Negative) Urine Bilirubin (Negative) Urine Urobilinogen (Negative) Ur Leukocyte Esterase (Negative) Urine WBC (Auto) (0-5) /hpf Urine RBC (Auto) (0-4) /hpf U Hyaline Cast (Auto) (0-5) /lpf U Epithel Cells (Auto) (0-5) /lpf Urine Bacteria (Auto) (Negative) COVID-19 Eval Order SARS-CoV-2 (PCR) (Negative) 10/16/20 10/16/20 10/16/20 Range/Units 16:00 17:11 17:11 WBC (4.8-10.8) K/uL RBC (4.7-6.1) M/uL Hgb (14.0-18.0) g/dL Hct (42-52) % MCV (80-100) fL MCH (25-34) pg MCHC (32-36) g/dL RDW Std Deviation (36.4-46.3) fL RDW Coeff of Kalin (11.5-14.5) % Plt Count (130-400) K/uL MPV (7.4-10.4) fL Immature Gran % (Auto) % Neut % (Auto) % Lymph % (Auto) % Bucks % (Auto) % Eos % (Auto) % Baso % (Auto) % Neut # (Auto) (1.4-6.5) K/uL Lymph # (Auto) (1.2-3.4) K/uL Bucks # (Auto) (0.11-0.59) K/uL Eos # (Auto) (0-0.5) K/uL Baso # (Auto) (0-0.2) K/uL Immature Gran # (Auto) (0.00-0.02) K/uL PT 10.7 (9.0-12.0) Seconds INR 1.1 (0.9-1.1) APTT 30.1 (21.0-31.0) Seconds PTT Ratio 1.1 Sodium (136-145) mmol/L Potassium (3.5-5.1) mmol/L Chloride (98-107) mmol/L Carbon Dioxide (21-32) mmol/L Anion Gap (3-11) BUN (7-18) mg/dl Creatinine (0.6-1.4) mg/dl Est Cr Clr Drug Dosing Est GFR ( Amer) ml/min Est GFR (Non-Af Amer) ml/min BUN/Creatinine Ratio (10-20) Glucose (70-99) mg/dl Lactate (0.4-2.0) mmol/L Calcium (8.5-10.1) mg/dl Magnesium (1.8-2.4) mg/dl Total Bilirubin (0.2-1) mg/dl AST (15-37) U/L ALT (12-78) U/L Alkaline Phosphatase (45-117) U/L Troponin I (0-0.045) ng/ml Total Protein (6.4-8.2) gm/dl Albumin (3.4-5.0) gm/dl Globulin (2.5-4.0) gm/dl Albumin/Globulin Ratio (0.9-2) Procalcitonin (0-0.5) ng/ml Urine Color Yellow Urine Appearance Clear (Clear) Urine pH 5.0 (4.5-7.5) Ur Specific Radom 1.009 (1.000-1.030) Urine Protein Negative (Negative) Urine Glucose (UA) Negative (Negative) Urine Ketones Negative (Negative) Urine Blood Trace H (Negative) Urine Nitrite Negative (Negative) Urine Bilirubin Negative (Negative) Urine Urobilinogen Negative (Negative) Ur Leukocyte Esterase 2+ H (Negative) Urine WBC (Auto) >30 H (0-5) /hpf Urine RBC (Auto) 0-4 (0-4) /hpf U Hyaline Cast (Auto) 1-5 (0-5) /lpf U Epithel Cells (Auto) 10-20 H (0-5) /lpf Urine Bacteria (Auto) 2+ H (Negative) COVID-19 Eval Order Covid19 at [facility] SARS-CoV-2 (PCR) (Negative) 10/16/20 10/16/20 Range/Units 17:11 17:24 WBC (4.8-10.8) K/uL RBC (4.7-6.1) M/uL Hgb (14.0-18.0) g/dL Hct (42-52) % MCV (80-100) fL MCH (25-34) pg MCHC (32-36) g/dL RDW Std Deviation (36.4-46.3) fL RDW Coeff of Kalin (11.5-14.5) % Plt Count (130-400) K/uL MPV (7.4-10.4) fL Immature Gran % (Auto) % Neut % (Auto) % Lymph % (Auto) % Bucks % (Auto) % Eos % (Auto) % Baso % (Auto) % Neut # (Auto) (1.4-6.5) K/uL Lymph # (Auto) (1.2-3.4) K/uL Bucks # (Auto) (0.11-0.59) K/uL Eos # (Auto) (0-0.5) K/uL Baso # (Auto) (0-0.2) K/uL Immature Gran # (Auto) (0.00-0.02) K/uL PT (9.0-12.0) Seconds INR (0.9-1.1) APTT (21.0-31.0) Seconds PTT Ratio Sodium (136-145) mmol/L Potassium (3.5-5.1) mmol/L Chloride (98-107) mmol/L Carbon Dioxide (21-32) mmol/L Anion Gap (3-11) BUN (7-18) mg/dl Creatinine (0.6-1.4) mg/dl Est Cr Clr Drug Dosing Est GFR ( Amer) ml/min Est GFR (Non-Af Amer) ml/min BUN/Creatinine Ratio (10-20) Glucose (70-99) mg/dl Lactate 1.2 (0.4-2.0) mmol/L Calcium (8.5-10.1) mg/dl Magnesium (1.8-2.4) mg/dl Total Bilirubin (0.2-1) mg/dl AST (15-37) U/L ALT (12-78) U/L Alkaline Phosphatase (45-117) U/L Troponin I (0-0.045) ng/ml Total Protein (6.4-8.2) gm/dl Albumin (3.4-5.0) gm/dl Globulin (2.5-4.0) gm/dl Albumin/Globulin Ratio (0.9-2) Procalcitonin (0-0.5) ng/ml Urine Color Urine Appearance (Clear) Urine pH (4.5-7.5) Ur Specific Radom (1.000-1.030) Urine Protein (Negative) Urine Glucose (UA) (Negative) Urine Ketones (Negative) Urine Blood (Negative) Urine Nitrite (Negative) Urine Bilirubin (Negative) Urine Urobilinogen (Negative) Ur Leukocyte Esterase (Negative) Urine WBC (Auto) (0-5) /hpf Urine RBC (Auto) (0-4) /hpf U Hyaline Cast (Auto) (0-5) /lpf U Epithel Cells (Auto) (0-5) /lpf Urine Bacteria (Auto) (Negative) COVID-19 Eval Order SARS-CoV-2 (PCR) NEGATIVE (Negative) Administered Medications Apixaban (Apixaban 5 Mg Tablet) 5 mg PO BID FE Stop: 11/15/20 21:39 Last Admin: 10/16/20 23:09 Dose: 5 mg Documented by: [id number] Atorvastatin Calcium (Atorvastatin 40 Mg Tab) 40 mg PO HS [facility] Stop: 11/15/20 21:39 Last Admin: 10/16/20 23:10 Dose: 40 mg Documented by: [id number] Famotidine (Famotidine 20 Mg Tab) 20 mg PO BID FE Stop: 11/15/20 21:39 Last Admin: 10/16/20 23:10 Dose: 20 mg Documented by: [id number] Ceftriaxone Sodium 2,000 mg/ (Dextrose) 70 mls @ 100 mls/hr IV Q24H FE; Protocol Stop: 10/26/20 22:59 Last Infusion: 10/17/20 00:20 Dose: 0 mls/hr Documented by: [id number] Admin: 10/16/20 23:10 Dose: 100 mls/hr Documented by: [id number] Metoprolol Tartrate (Metoprolol Tartrate 100 Mg Tab) 100 mg PO BID FE Stop: 11/15/20 21:39 Last Admin: 10/16/20 23:10 Dose: Not Given Documented by: [id number] Discontinued Medications Albuterol (Albut/Ipratrop 3mg/0.5mg Neb 3 Ml Vial) 3 ml NEB NOW STA Stop: 10/16/20 16:47 Last Admin: 10/16/20 17:06 Dose: 3 ml Documented by: [id number] Sodium Chloride (Nss 1000ml) 1,000 mls @ 999 mls/hr IV .Q1H1M FE Stop: 10/16/20 18:00 Last Infusion: 10/16/20 18:46 Dose: 0 mls/hr Documented by: [id number] Admin: 10/16/20 17:39 Dose: 999 mls/hr Documented by: [id number] Cefepime HCl (Maxipime) 2,000 mg in 20 mls @ 5 mls/min IV NOW STA; Protocol Stop: 10/16/20 16:49 Last Admin: 10/16/20 17:40 Dose: 5 mls/min Documented by: [id number] Magnesium Sulfate/Dextrose (Magnesium Sulfate / D5w) 1 gm in 100 mls @ 100 mls/hr IV NOW STA Stop: 10/16/20 18:11 Last Infusion: 10/16/20 18:45 Dose: 0 mls/hr Documented by: [id number] Admin: 10/16/20 17:42 Dose: 100 mls/hr Documented by: [id number] Imaging Data Radiologist's Impression: Chest X-Ray 10/16/20 16:47 XR chest 1V portable HISTORY: SEPSIS COMPARISON: Chest 09/15/2018. FINDINGS: No pneumothorax. No pleural effusions. The cardiac silhouette remains mildly enlarged. There is mild diffuse interstitial thickening, unchanged. This is likely chronic. No new focal lung consolidations to suggest pneumonia. No ev idence for pulmonary edema. Severe osteoarthritis within the right glenohumeral joint is again noted. IMPRESSION: No significant change compared to the prior study. No acute process. ACT 112: Negative or not required by law. Electronically signed by: Moise Escalante M.D. 10/16/2020 5:13 PM Discharge Plan Visit Data Chief Complaint: Shortness of Breath/Dyspnea ED Provider: Damon Oliva Discharge Problem: Hypotension, Cough, SOB (shortness of breath), Acute UTI, Dizziness Patient Disposition: Admitted As Inpatient Condition: Fair Discharge Instructions Interventions: ED Discharge Assessment Last Done: 10/16/20 20:59
[2020-10-16 16:56] LABS: Basophils # (auto) 0.01 K/uL (0-0.2); Basophils % (auto) 0.2 %; Eosinophils # (auto) 0.04 K/uL (0-0.5); Eosinophils % (auto) 0.6 %; Hematocrit (blood only) 42.3 % (42-52); Hemoglobin 14.8 g/dL (14.0-18.0); Immature Granulocytes # (auto) 0.01 K/uL (0.00-0.02); Immature Granulocytes % (auto) 0.2 %; Lymphocytes # (auto) 0.76 K/uL (1.2-3.4); Lymphocytes % (auto) 11.8 %; Mean Corpuscular Hemoglobin 32.1 pg (25-34); Mean Corpuscular Volume 91.8 fL (80-100); Mean Platelet Volume 11.2 fL (7.4-10.4); Monocytes # (auto) 0.69 K/uL (0.11-0.59); Monocytes % (auto) 10.7 %; Neutrophils # (auto) 4.93 K/uL (1.4-6.5); Neutrophils % (auto) 76.5 %; Platelet Count 168 K/uL (130-400); RDW Coefficient of Variation 13.4 % (11.5-14.5); RDW Standard Deviation 44.9 fL (36.4-46.3); Red Blood Count 4.61 M/uL (4.7-6.1); White Blood Count 6.44 K/uL (4.8-10.8)
[2020-10-16] MEDS ORDERED: SODIUM CHLORIDE 0.9% 1000ML 1,000 ML IV SCH (17:00)
[2020-10-16 17:03] LABS: Albumin Level 3.7 gm/dl (3.4-5.0); BUN Creatinine Ratio 19.8 (10-20); Blood Urea Nitrogen 28 mg/dl (7-18); Calcium 9.2 mg/dl (8.5-10.1); Carbon Dioxide 25 mmol/L (21-32); Chloride 102 mmol/L (98-107); Est GFR (African American) 56.4 ml/min; Est GFR (Non-African American) 48.7 ml/min; Glucose 93 mg/dl (70-99); Magnesium 1.5 mg/dl (1.8-2.4); Potassium 3.6 mmol/L (3.5-5.1); Sodium 137 mmol/L (136-145)
[2020-10-16 17:08] LABS: Alanine Aminotransferase 23 U/L (12-78); Albumin Globulin Ratio 1.1 (0.9-2); Alkaline Phosphatase 137 U/L (45-117); Aspartate Aminotransferase 21 U/L (15-37); Bilirubin,Total 0.9 mg/dl (0.2-1); Globulin 3.4 gm/dl (2.5-4.0); Total Protein 7.1 gm/dl (6.4-8.2); Troponin I < 0.015 ng/ml (0-0.045)
[2020-10-16] MEDS ORDERED: MAGNESIUM SULFATE / D5W 1 GM/100 ML BAG IV STA (17:12)
--- NOTE | 2020-10-16 17:14 | XRay Report ---
XR chest 1V portable HISTORY: SEPSIS COMPARISON: Chest 09/15/2018. FINDINGS: No pneumothorax. No pleural effusions. The cardiac silhouette remains mildly enlarged. Ther e is mild diffuse interstitial thickening, unchanged. This is likely chronic. No new focal lung conso lidations to suggest pneumonia. No evidence for pulmonary edema. Severe osteoarthritis within the rig ht glenohumeral joint is again noted. IMPRESSION: No significant change compared to the prior study. No acute process. ACT 112: Negative or not required by law. Electronically signed by: Moise Escalante M.D. 10/16/2020 5:13 PM
[2020-10-16 17:15] LABS: INR 1.1 (0.9-1.1); Partial Thromboplastin Ratio 1.1; Partial Thromboplastin Time 30.1 Seconds (21.0-31.0); Prothrombin Time 10.7 Seconds (9.0-12.0)
[2020-10-16 17:25] LABS: Appearance Urine Clear (Clear); Bacteria Urine Automated 2+ (Negative); Bilirubin Urine Negative (Negative); Blood Urine Trace (Negative); Color Urine Yellow; Glucose Urine UA Negative (Negative); Ketones Urine Negative (Negative); Leukocyte Esterase Urine 2+ (Negative); Nitrite Urine Negative (Negative); Protein Urine Negative (Negative); RBC Urine Automated 0-4 /hpf (0-4); Specific Gravity Urine 1.009 (1.000-1.030); Urobilinogen Urine Negative (Negative); WBC Urine Automated >30 /hpf (0-5)
--- NOTE | 2020-10-16 19:16 | History & Physical Report ---
Date of Service October 16, 2020 Assessment & Plan (1) UTI (urinary tract infection): Plan: Symptoms for about 1 week. UA in ED indicates infection. - Ceftriaxone IV daily - Follow urine and blood cultures (2) Cough: Plan: Cough x 1 week, occasional productive, but only after really coughing. CXR on admission without focal infiltrate. - Procalcitonin was negative (<0.05). - Abx as above for his UTI; defer atypical coverage given low concern for pneumonia. - Could consider further pulmonary work-up inpatient vs. outpatient if no improvement. Reports no smoking, but did work in [employer] for much of his life. Has never had black lung or other fibrosis work-up. (3) Acute kidney injury: Plan: Baseline Cr ~1.0 - 1.1. Cr on admission as 1.4, reaching threshold for RAYNE, present on admission. - Holding furosemide and HCTZ-spironolactone. - Received IV fluids in the ED - Monitor (4) Diastolic congestive heart failure: Plan: In problem list, but not mentioned in recent PCP notes or any prior hospital notes that I see. - Hold diuretics for 1-2 days for his RAYNE - Monitor volume status -> Presently mildly hypovolemic. Will give low amount of gentle IV fluids overnight. (5) HTN (hypertension): Plan: BP was slightly low in the ED (90/50) prior to 1L IV fluids. - Continue beta-evin and calcium channel evin to avoid tachycardia with his afib - Hold diuretics as above (6) Atrial fibrillation: Plan: Rate-controlled while I was in the room at ~80 bpm. - Continue Eliquis - Continue rate-control with beta-evin and calcium channel evin (7) Sleep apnea: Plan: CPAP HS (8) Hyperlipidemia: Plan: - Continue statin (9) DVT prophylaxis: Plan: On apixaban for afib History of Present Illness Primary Care Provider: TUSHAR Marie 75yo M w/ hx of afib who presents with UTI and likely URI. He reports that about 1 week ago, he developed a cough and urinary urgency and dysuria. He reports the cough is generally non-productive, but if he really coughs, he can bring up some sputum. At the same time, he also notes some dysuria and polyuria. Last night, he reports he was coughing significantly, then had to get up and pee. He also notes some subjective fevers/chills at home. He has had some nausea, but no emesis. He notes some dyspnea on exertion, but denies any shortness of breath while resting in bed. He denies any chest pain, abdominal pain, vomiting, diarrhea, constipation. Allergies Allergy/AdvReac Type Severity Reaction Status Date / Time No Known Allergies Allergy Unknown Verified 10/16/20 17:25 Home Medications Medication Instructions Recorded Confirmed Type apixaban 5 mg tablet (Eliquis) 5 mg PO BID 05/03/18 10/16/20 History atorvastatin 40 mg tablet (Lipitor) 40 mg PO HS 05/03/18 10/16/20 History metoprolol tartrate 100 mg tablet 100 mg PO BID 05/03/18 10/16/20 History (Lopressor) hwfwlwpd-qpk-hyiqu acid 300 1 tab PO QAM 05/03/18 10/16/20 History mcg-lycopene 600 mcg-lutein 300 mcg tablet (Centrum Silver Men) diltiazem HCl 240 mg capsule,24 240 mg PO DAILY #30 cap 09/23/18 10/16/20 Rx hr,extended release duloxetine 30 mg capsule,delayed 30 mg PO DAILY 10/16/20 10/16/20 History release famotidine 20 mg tablet 20 mg PO BID 10/16/20 10/16/20 History furosemide 40 mg tablet (Lasix) 40 mg PO UD 10/16/20 10/16/20 History potassium chloride 20 mEq 20 meq PO DAILY 10/16/20 10/16/20 History tablet,extended release spironolactone 25 1 tab PO DAILY 10/16/20 10/16/20 History mg-hydrochlorothiazide 25 mg tablet tamsulosin 0.4 mg capsule 0.4 mg PO DAILY 10/16/20 10/16/20 History tramadol 50 mg tablet 50 mg PO BID PRN 10/16/20 10/16/20 History Past Med/Surg History Medical History (Updated 10/16/20 @ 19:32 by Sharath Wan MD) Acute kidney injury Acute kidney injury Atrial fibrillation Atrial fibrillation with RVR Cellulitis of left lower extremity Diverticulosis GERD (gastroesophageal reflux disease) Gout Gout Heart disease History of blood clots HTN (hypertension) Internal hemorrhoids Osteoarthritis Pituitary tumor Surgical History H/O colonoscopy History of basal cell carcinoma excision Family History Mother Stroke Hypertension Father Hypertension Other Heart disease Social History Smoking Status: Never smoker Second Hand Exposure: No; Hx Alcohol Use: No Hx Substance Use: No Preferred Language: Turkmen Communication Ability: Effective Musical Performer Required: No Beliefs That Will Affect Care: None marital status: Single Current Living Situation: Alone How many Children do You have: 0 Feels Safe at Home: Yes Assistive Devices: None Review of Systems Review of Systems: All systems reviewed & are unremarkable except as noted in HPI & below Physical Exam Constitutional: WD/WN, vitals as above Eyes: EOM intact bilaterally; no conjunctival abnormality ENMT: external ear and nose normal, oropharynx normal Neck: trachea midline, no thyromegaly normal visual inspection Respiratory: normal respiratory effort, lungs clear to auscultation no respiratory distress Cardiovascular: RRR, no murmur, no edema Gastrointestinal (Abdomen): Inspection/Auscultation: abdomen normal to inspection; abdomen not distended Musculoskeletal: no cyanosis or clubbing, extremities motor strength 5/5 Skin: no rashes, warm and dry Neurologic: moves all extremities and awake Psychiatric: Orientation: alert, oriented to person and cooperative Results & Data Results & Data ([facility]) Vital Signs (Past 12 Hours) Vital Signs Temp Pulse Pulse Resp BP Pulse Ox 10/16/20 18:45 93 10/16/20 18:30 90 28 H 107/71 85 L 10/16/20 18:00 103 H 21 120/76 10/16/20 17:32 105 H 25 H 10/16/20 17:07 101 H 22 95 10/16/20 17:04 110 H 19 113/80 94 10/16/20 16:34 37.0 C 106 H 20 89/68 L 98 Code Status & VTE Plan VTE Prophylaxis Plan VTE Prophylaxis will be ordered: Yes PG Care Time/CCT Total # of Minutes Spent Total Time Spent with Patient: Total time spent is greater than 50% in coordination of care (as documented) at patient's floor/unit and/or counseling patient: Coding Level of Care Code 78646 Initial Inpt Care Lvl 3 Diagnoses UTI (urinary tract infection) N39.0 Cough R05 Diastolic congestive heart failure I50.30 Acute kidney injury N17.9 HTN (hypertension) I10 Hypertension type: essential hypertension Atrial fibrillation I48.91 Sleep apnea G47.30 DVT prophylaxis Z29.9 Hyperlipidemia E78.5 (1) HTN (hypertension) Hypertension type: essential hypertension Qualified Code(s): I10 - Essential (primary) hypertension
[2020-10-16] MEDS ORDERED: ONDANSETRON INJ 2 MG/ML 2 ML VIAL IV PRN (21:40)
[2020-10-16] MEDS: APIXABAN 5 MG TABLET PO SCH (23:09)
[2020-10-16] MEDS: FAMOTIDINE 20 MG TAB PO SCH (23:10)
[2020-10-16] MEDS: METOPROLOL TARTRATE 100 MG TAB PO SCH (23:10)
[2020-10-16] MEDS: cefTRIAXone SODIUM 2,000 MG in DEXTROSE 5% 50 ML IV SCH (23:10)
[2020-10-16] MEDS: ATORVASTATIN 40 MG TAB PO SCH (23:10)
[2020-10-17] MEDS: ACETAMINOPHEN 325 MG TAB PO PRN ×3 (06:13→19:48)
[2020-10-17] MEDS: FAMOTIDINE 20 MG TAB PO SCH ×2 (07:55→21:00)
[2020-10-17] MEDS: TAMSULOSIN HCL 0.4 MG CAP PO SCH (07:58)
[2020-10-17] MEDS: MULTIVITAMIN TAB PO SCH (07:58)
[2020-10-17] MEDS: dilTIAZem HCL 240 MG CAPCR PO SCH (07:58)
[2020-10-17] MEDS: METOPROLOL TARTRATE 100 MG TAB PO SCH ×2 (07:58→21:00)
[2020-10-17] MEDS: DULoxetine HCL 30 MG CAP PO SCH (07:59)
[2020-10-17] MEDS: APIXABAN 5 MG TABLET PO SCH ×2 (07:59→21:00)
--- NOTE | 2020-10-17 08:23 | Hospitalist Progress Note ---
Date of Service October 17, 2020 Assessment & Plan (1) UTI (urinary tract infection): Plan: Symptoms for about 1 week. UA in ED indicates infection. - Ceftriaxone IV daily awaiting sensitivities - Pending urine, preliminary e coli, and blood cultures both are pending (2) Cough: Plan: Cough x 1 week, occasional productive, but only after really coughing. CXR on admission without focal infiltrate. - Procalcitonin was negative (<0.05). 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 Has never had black lung or other fibrosis work-up, will try to coordinate pulmonary eval as outpt . (3) Acute kidney injury: Plan: Baseline Cr ~1.0 - 1.1. Cr on admission as 1.4, reaching threshold for RAYNE, present on admission. - Holding furosemide and HCTZ-spironolactone. - Received IV fluids in the ED (4) Diastolic congestive heart failure: Plan: In problem list, but not mentioned in recent PCP notes or any prior hospital notes that I see. - Hold diuretics for 1-2 days for his RAYNE - (5) HTN (hypertension): Plan: BP was slightly low in the ED (90/50) prior to 1L IV fluids. - Continue beta-evin and calcium channel evin to avoid tachycardia with his afib - Hold diuretics as above (6) Atrial fibrillation: Plan: Rate-controlled while I was in the room at ~80 bpm. - Continue Eliquis - Continue rate-control with beta-evin and calcium channel evin (7) Sleep apnea: Plan: CPAP HS (8) Hyperlipidemia: Plan: - Continue statin (9) Pituitary adenoma: Plan: pt has history of pituitary adenoma, off bromocriptyline for some time, now with recurrence of headache, bi frontal, no other physical symptoms (10) DVT prophylaxis: Plan: On apixaban for afib Admission and Anticipated Discharge Date Admission Date: October 16, 2020 Subjective this pt is feeling poorly, he has poor appetite and has had improved dysuria Review of Systems Review of Systems: moderate distress and fatigue no headache, no visual changes no speech or swallowing issues no chest pain, pressure or palpitations no shortness of breath, cough or wheezes no abdominal pain, nausea or vomiting, diarrhea or constipation does have dysuria, and frequency no focal joint pain or swelling no back pain, CVA tenderness or radicular pain no bruising, bleeding or rashes no focal signs of weakness or numbness or altered sensation no complaints of anxiety or depression.. Physical Exam Physical Exam: The patient appeared well nourished and normally developed. Vital signs as documented. Head exam is normocephalic atraumatic Neck is without JVD, thyromegaly, or carotid bruits. Lungs are clear to auscultation, no focal loss of breath sounds Cardiac exam, Rhythm is regular.. No murmurs, rubs or gallops. Abdominal exam reveals normal bowel sounds, soft non tender, no masses Extremities are nonedematous and both pedal pulses are present Neurologic exam is alert and oriented, no focal loss of strength or sensation Skin is without bruises or rashes Psychologically is without concerns for anxiety or depression Results & Data Results & Data ([facility]) Vital Signs (Past 12 Hours) Vital Signs Temp Pulse Resp BP BP Pulse Ox 10/17/20 08:00 98.6 F 107 H 22 100/65 96 10/16/20 23:07 99.5 F 105 H 20 98/61 L 97 10/16/20 21:17 24 97 10/16/20 21:15 99.3 F 115 H 20 122/78 122/78 97 PG Care Time/CCT Total # of Minutes Spent Total Time Spent with Patient: Total time spent is greater than 50% in coordination of care (as documented) at patient's floor/unit and/or counseling patient: Coding Level of Care Code 41558 Subseq Hosp Care Lvl 2 Diagnoses UTI (urinary tract infection) N39.0 Cough R05 Acute kidney injury N17.9 Diastolic congestive heart failure I50.30 HTN (hypertension) I10 Hypertension type: essential hypertension Atrial fibrillation I48.91 Sleep apnea G47.30 Hyperlipidemia E78.5 DVT prophylaxis Z29.9 Pituitary adenoma D35.2 (1) HTN (hypertension) Hypertension type: essential hypertension Qualified Code(s): I10 - Essential (primary) hypertension
[2020-10-17 08:27] LABS: Hematocrit (blood only) 40.5 % (42-52); Hemoglobin 13.8 g/dL (14.0-18.0); Mean Corpuscular Hemoglobin 31.6 pg (25-34); Mean Corpuscular Hgb Conc 34.1 g/dL (32-36); Mean Corpuscular Volume 92.7 fL (80-100); Mean Platelet Volume 10.3 fL (7.4-10.4); Platelet Count 146 K/uL (130-400); RDW Coefficient of Variation 13.5 % (11.5-14.5); RDW Standard Deviation 46.1 fL (36.4-46.3); Red Blood Count 4.37 M/uL (4.7-6.1); White Blood Count 6.02 K/uL (4.8-10.8)
[2020-10-17 09:01] LABS: BUN Creatinine Ratio 18.6 (10-20); Calcium 9.2 mg/dl (8.5-10.1); Creatinine Clr Calc Pharmacy 72.4 ml/min; Est GFR (African American) 73.5 ml/min; Est GFR (Non-African American) 63.4 ml/min; Magnesium 1.6 mg/dl (1.8-2.4); Potassium 3.5 mmol/L (3.5-5.1)
[2020-10-17] MEDS: traMADol HCL 50 MG TABLET PO PRN (15:36)
[2020-10-17] MEDS: FLUTICASONE PROPIONATE NA SPR 16 GM BTL PRN (15:36)
[2020-10-17] MEDS: ATORVASTATIN 40 MG TAB PO SCH (21:00)
[2020-10-17] MEDS ORDERED: ALBUT/IPRATROP 3MG/0.5MG NEB 3 ML VIAL NEB PRN (22:16)
[2020-10-17] MEDS: cefTRIAXone SODIUM 2,000 MG in DEXTROSE 5% 50 ML IV SCH (23:24)
[2020-10-18] MEDS ORDERED: GADOBUTROL 65ML VIAL IV ONE (01:19)
[2020-10-18] MEDS: traMADol HCL 50 MG TABLET PO PRN (08:36)
[2020-10-18] MEDS: ACETAMINOPHEN 325 MG TAB PO PRN ×2 (08:36→16:47)
[2020-10-18] MEDS: FLUTICASONE PROPIONATE NA SPR 16 GM BTL PRN ×2 (08:36→16:45)
[2020-10-18] MEDS: APIXABAN 5 MG TABLET PO SCH ×2 (08:37→20:21)
[2020-10-18] MEDS: FAMOTIDINE 20 MG TAB PO SCH ×2 (08:37→20:21)
[2020-10-18] MEDS: dilTIAZem HCL 240 MG CAPCR PO SCH (08:37)
[2020-10-18] MEDS: DULoxetine HCL 30 MG CAP PO SCH (08:37)
[2020-10-18] MEDS: MULTIVITAMIN TAB PO SCH (08:37)
[2020-10-18] MEDS: METOPROLOL TARTRATE 100 MG TAB PO SCH ×2 (08:37→20:21)
[2020-10-18] MEDS: TAMSULOSIN HCL 0.4 MG CAP PO SCH (08:38)
--- NOTE | 2020-10-18 11:59 | Magnetic Resonance Report ---
MR brain pituitary wo/w con HISTORY: 75 years-old Male eval for history of pituitary tumor chronic headaches. Patient reports a known pituitary mass with prior evaluation obtained at outside facility. COMPARISON: Head CT 09/22/2018, brain MRI from outside hospital 12/22/2018. TECHNIQUE: Multiplanar multisequence MRI of the brain was obtained both with and without the use of 1 2.0 mL Gadavist utilizing pituitary mass protocol. FINDINGS: Electromechanical Engineer localizer images demonstrate no gross extracranial abnormality. There is no restricted diffusio n to suggest acute or subacute infarct. No acute intracranial hemorrhage, midline shift, abnormal ext ra-axial collection, hydrocephalus or intra-axial mass. Age-related involutional changes. Mild to mod erate T2/FLAIR hyperintensities throughout the white matter are suggestive of chronic microvascular i schemic disease. The study is mildly motion degraded. Cerebral venous sinuses and major arterial flow voids are patent. Trace mastoid effusions. Moderate mucoperiosteal thickening of the maxillary sinus es with severe mucosal thickening of the ethmoid air cells. Mild to moderate mucosal thickening of th e frontal and sphenoid sinuses. Postoperative changes of prior pituitary mass resection redemonstrated, suboptimally evaluated second sam to motion artifact. Mixed signal area of enhancement within the sellar/suprahilar distribution me asures approximately 2.8 x 2.7 x 2.3 cm in transverse, AP and craniocaudal dimensions respectively as measured on image 10 series 16 and image 9 series 14. Areas of intrinsic increased T1 signal suggest aida of macroscopic fat are noted within this distribution. Chronic remodeling changes of the clivus a nd sphenoid bone. Findings are stable from 12/22/2018 brain MRI. No new areas of growth or enhancemen t are identified. 10 x 8 mm area of extra-axial enhancement adjacent to the right frontal lobe near t he convexity on image 21 series 13 may reflect a small meningioma. IMPRESSION: 1. Motion degraded exam. No acute intracranial abnormality. 2. Postoperative changes redemonstrated compatible with prior pituitary mass resection. There is unch anged heterogeneity and enhancement with chronic remodeling changes of the sella which is unchanged f rom the 12/22/2018 brain MRI. These findings are likely on a postoperative basis with possible residu al disease not excluded. Continued follow-up recommended. ACT 112: Negative or not required by law. The above report was generated using voice recognition software. It may contain grammatical, syntax o r spelling errors. Dictated: 10/18/2020 8:45 AM Transcribed: 10/18/2020 10:24 AM Sindi [id number] [email or web address] Electronically signed by: Remi Valles M.D. 10/18/2020 11:58 AM
--- NOTE | 2020-10-18 16:51 | Hospitalist Progress Note ---
Date of Service October 18, 2020 Assessment & Plan (1) UTI (urinary tract infection): Plan: Symptoms for about 1 week. UA in ED indicates infection. - Ceftriaxone IV daily pansensitive e coli, and blood cultures negative to date continue treatment for another day until subjective issue improve (2) Cough: Plan: Cough x 1 week, occasional productive, but only after really coughing. CXR on admission without focal infiltrate. - Procalcitonin was negative (<0.05). 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 Has never had black lung or other fibrosis work-up, will try to coordinate pulmonary eval as outpt . (3) Acute kidney injury: Plan: Baseline Cr ~1.0 - 1.1. Cr on admission as 1.4, reaching threshold for RAYNE, present on admission. - Holding furosemide and HCTZ-spironolactone. -resolved after IV fluids in the ED (4) Diastolic congestive heart failure: Plan: In problem list, but not mentioned in recent PCP notes or any prior hospital notes that I see. - resume diuretics at discharge - (5) HTN (hypertension): Plan: BP was slightly low in the ED (90/50) prior to 1L IV fluids. - Continue beta-evin and calcium channel evin to avoid tachycardia with his afib - Hold diuretics as above (6) Atrial fibrillation: Plan: Rate-controlled while I was in the room at ~80 bpm. - Continue Eliquis - Continue rate-control with beta-vein and calcium channel evin (7) Sleep apnea: Plan: CPAP HS (8) Hyperlipidemia: Plan: - Continue statin (9) Pituitary adenoma: Plan: pt has history of pituitary adenoma, off bromocriptyline for some time, now with recurrence of headache, bi frontal, no other physical symptoms MRI 10/18/20 IMPRESSION: 1. Motion degraded exam. No acute intracranial abnormality. 2. Postoperative changes remonstrated compatible with prior pituitary mass resection. There is unchanged heterogeneity and enhancement with chronic remodeling changes of the sella which is unchanged from the 12/22/2018 brain MRI. These findings are likely on a postoperative basis with possible residual disease not excluded. Continued follow-up recommended . (10) DVT prophylaxis: Plan: On apixaban for afib Admission and Anticipated Discharge Date Admission Date: October 16, 2020 Subjective pt still feels weak and tired his appetite is not quite back, still fatigued with ambulation Review of Systems Review of Systems: moderate distress and fatigue no headache, no visual changes no speech or swallowing issues no chest pain, pressure or palpitations no shortness of breath, cough or wheezes no abdominal pain, nausea or vomiting, diarrhea or constipation does have dysuria, and frequency no focal joint pain or swelling no back pain, CVA tenderness or radicular pain no bruising, bleeding or rashes no focal signs of weakness or numbness or altered sensation no complaints of anxiety or depression.. Physical Exam Physical Exam: The patient appeared well nourished and normally developed. Vital signs as documented. Head exam is normocephalic atraumatic Neck is without JVD, thyromegaly, or carotid bruits. Lungs are clear to auscultation, no focal loss of breath sounds Cardiac exam, Rhythm is regular.. No murmurs, rubs or gallops. Abdominal exam reveals normal bowel sounds, soft non tender, no masses Extremities are nonedematous and both pedal pulses are present Neurologic exam is alert and oriented, no focal loss of strength or sensation Skin is without bruises or rashes Psychologically is without concerns for anxiety or depression Results & Data Results & Data ([facility]) Vital Signs (Past 12 Hours) Vital Signs Temp Pulse Resp BP Pulse Ox 10/18/20 15:34 98.4 F 65 16 106/73 96 10/18/20 07:06 98.1 F 90 18 105/68 99 PG Care Time/CCT Total # of Minutes Spent Total Time Spent with Patient: Total time spent is greater than 50% in coordination of care (as documented) at patient's floor/unit and/or counseling patient: Coding Level of Care Code 69854 Subseq Hosp Care Lvl 2 Diagnoses UTI (urinary tract infection) N39.0 Cough R05 Acute kidney injury N17.9 Diastolic congestive heart failure I50.30 HTN (hypertension) I10 Hypertension type: essential hypertension Atrial fibrillation I48.91 Sleep apnea G47.30 Hyperlipidemia E78.5 Pituitary adenoma D35.2 DVT prophylaxis Z29.9 (1) HTN (hypertension) Hypertension type: essential hypertension Qualified Code(s): I10 - Essential (primary) hypertension
[2020-10-18] MEDS: ATORVASTATIN 40 MG TAB PO SCH (20:21)
[2020-10-18] MEDS: cefTRIAXone SODIUM 2,000 MG in DEXTROSE 5% 50 ML IV SCH (22:02)
[2020-10-18 22:41] VITALS: PULSE 87
[2020-10-19 07:39] VITALS: BP 117/73; TEMP 97.9
[2020-10-19] MEDS ORDERED: NURSING DECISION MEDICATION ONE (08:30)
[2020-10-19] MEDS: MULTIVITAMIN TAB PO SCH (08:31)
[2020-10-19] MEDS: dilTIAZem HCL 240 MG CAPCR PO SCH (08:31)
[2020-10-19] MEDS: METOPROLOL TARTRATE 100 MG TAB PO SCH (08:31)
[2020-10-19] MEDS: APIXABAN 5 MG TABLET PO SCH (08:31)
[2020-10-19] MEDS: FAMOTIDINE 20 MG TAB PO SCH (08:32)
[2020-10-19] MEDS: FLUTICASONE PROPIONATE NA SPR 16 GM BTL PRN (08:32)
[2020-10-19] MEDS: TAMSULOSIN HCL 0.4 MG CAP PO SCH (08:32)
[2020-10-19] MEDS: DULoxetine HCL 30 MG CAP PO SCH (08:32)
[2020-10-19] MEDS: traMADol HCL 50 MG TABLET PO PRN (08:35)
[2020-10-19] MEDS ORDERED: COUGH DROP (SUGAR FREE) LOZ 24 LOZ/1 BOX BUCCAL ONE (08:35)
[2020-10-19] MEDS: ACETAMINOPHEN 325 MG TAB PO PRN (08:36)
[2020-10-19] MEDS ORDERED: COUGH DROP (SUGAR FREE) LOZ 24 LOZ/1 BOX BUCCAL PRN (08:38)
[2020-10-19 09:46] VITALS: O2SAT 94
--- NOTE | 2020-10-19 15:54 | Electrocardiogram Report ---
Test Reason : Blood Pressure : / mmHG Vent. Rate : 099 BPM Atrial Rate : 076 BPM P-R Int : 000 ms QRS Dur : 086 ms QT Int : 310 ms P-R-T Axes : 000 032 039 degrees QTc Int : 397 ms Poor data quality, interpretation may be adversely affected Atrial fibrillation Abnormal ECG When compared with ECG of 16-SEP-2018 06:36, No significant change Confirmed by Fortino Torres ([id number]) on 10/19/2020 3:53:52 PM Referred By: Vicky Rose Confirmed By:Fortino Torres
--- NOTE | 2020-10-19 18:20 | Discharge Summary ---
Date of Service October 19, 2020 Admission HPI Per Admitting Provider 75yo M w/ hx of afib who presents with UTI and likely URI. He reports that about 1 week ago, he developed a cough and urinary urgency and dysuria. He reports the cough is generally non-productive, but if he really cou ghs, he can bring up some sputum. At the same time, he also notes some dysuria and polyuria. Last night, he reports he was coughing significantly, then had to get up and pee. He also notes some subjective fevers/chills at home. He has had some nausea, but no emesis. He notes some dyspnea on exertion, but denies any shortness of breath while resting in bed. He denies any chest pain, abdominal pain, vomiting, diarrhea, constipation. Principal Diagnosis E coli uti poa headache with history of pituitary adenoma Discharge Exam The patient appeared well Vital signs as documented. Lungs are clear to auscultation and appear unlabored Cardiac exam, Rhythm is regular.. No murmurs, rubs or gallops. Abdominal exam reveals normal bowel sounds, soft non tender, no masses Extremities are nonedematous and both pedal pulses are normal. Neurologic exam is alert and oriented, no focal loss of strength or sensation Skin is without bruises or rashes Psychologically is without concerns for anxiety or depression. Discharge Data Allergies Allergy/AdvReac Type Severity Reaction Status Date / Time No Known Allergies Allergy Unknown Verified 10/16/20 17:25 Consultations 10/16/20 18:38 ED Decision to Admit Stat Ordered Studies 10/18/20 17:42 MR brain pituitary wo/w con Routine Hospital Course (1) UTI (urinary tract infection): Symptoms for about 1 week. UA in ED indicates infection. - Ceftriaxone IV daily pansensitive e coli, and blood cultures negative to date We will send home on Bactrim DS follow-up with family physician (2) Cough: Cough x 1 week, occasional productive, but only after really coughing. CXR on admission without focal infiltrate. - Procalcitonin was negative (<0.05). 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 Has never had black lung or other fibrosis work-up, CPT consider referral to pulmonary evaluation. (3) Acute kidney injury: Baseline Cr ~1.0 - 1.1. Cr on admission as 1.4, reaching threshold for RAYNE, present on admission. - Holding furosemide and HCTZ-spironolactone at discharge -resolved (4) Diastolic congestive heart failure: In problem list, but not mentioned in recent PCP notes or any prior hospital notes that I see. -pt has been fairly stable here, will defer to pcp if restart of diurectic is warranted - (5) HTN (hypertension): BP was slightly low in the ED (90/50) prior to 1L IV fluids. - Continue beta-evin and calcium channel evin to control afib - Hold diuretics as above (6) Atrial fibrillation: Rate-controlled - Continue Eliquis - (7) Sleep apnea: CPAP HS (8) Hyperlipidemia: - Continue statin (9) Pituitary adenoma: pt has history of pituitary adenoma, off bromocriptyline for some time, now with recurrence of headache, bi frontal, no other physical symptoms MRI 10/18/20 IMPRESSION: 1. Motion degraded exam. No acute intracranial abnormality. 2. Postoperative changes remonstrated compatible with prior pituitary mass resection. There is unchanged heterogeneity and enhancement with chronic remodeling changes of the sella which is unchanged from the 12/22/2018 brain MRI. These findings are likely on a postoperative basis with possible residual disease not excluded. Continued follow-up recommended . Total Time Total Time Spent Total Time Spent (In Minutes): It required greater than 30 minutes to prepare this patient for discharge Discharge Plan Discharge Items Patient Disposition: Home - Self-Care Reason For Visit: URINARY TRACT INFECTION Discharge Diagnosis: weakness secondary to e coli uti headache with history of pituitary adenoma, stable on imaging Condition on Discharge: Fair Activity: Resume your previous activity Non-emergency contact: Primary Care Provider Call non-emergency contact if: your symptoms worsen Follow-up/Referrals: Vicky Rose CRNP [Primary Care Provider] - 10/22/20 8:10 am Diet: Regular Addtl Attending Provider Instructions: please finish all of your antibiotics please drink plenty of liquids follow up with your primary care next week Pending Studies at Discharge: No Stand-Alone Forms: My [employer], Smoking Cessation Medications and DC Order Prescriptions: New sulfamethoxazole-trimethoprim [Bactrim DS] 800-160 mg tablet 1 tab PO BID 7 Days Qty: 14 RF: 0 Continued atorvastatin [Lipitor] 40 mg tablet 40 mg PO HS RF: 0 metoprolol tartrate [Lopressor] 100 mg tablet 100 mg PO BID RF: 0 Centrum Silver Men 300-600-300 mcg Tablet 1 tab PO QAM RF: 0 Eliquis 5 mg tablet 5 mg PO BID RF: 0 diltiazem HCl 240 mg capsule,extended release 24 hr 240 mg PO DAILY Qty: 30 RF: 5 famotidine 20 mg tablet 20 mg PO BID RF: 0 tramadol 50 mg tablet 50 mg PO BID PRN (Reason: Pain) RF: 0 tamsulosin 0.4 mg capsule 0.4 mg PO DAILY RF: 0 duloxetine 30 mg capsule,delayed release(DR/EC) 30 mg PO DAILY RF: 0 Discontinued potassium chloride 20 mEq tablet extended release 20 meq PO DAILY RF: 0 spironolacton-hydrochlorothiaz 25-25 mg tablet 1 tab PO DAILY RF: 0 furosemide [Lasix] 40 mg tablet 40 mg PO UD RF: 0 Discharge Orders: Discharge Order (Routine); Ordered 10/19/20 Ordered By: Venu Banda/Other Patient Handouts: Urinary Tract Infections in Men Admission Data Admit Date/Time: 10/16/20 19:11 Attending Provider: Venu Ann Admit Provider: Sharath Wan Primary Care Provider: Vicky Rose Other Providers: Sharath Wan Other Interventions: Discharge Summary Assessment (RN) Last Done: 10/19/20 11:38 Coding Level of Care Code D/C DAY MANAGEMENT >30 MINS Diagnoses UTI (urinary tract infection) N39.0 Cough R05 Acute kidney injury N17.9 Diastolic congestive heart failure I50.30 HTN (hypertension) I10 Hypertension type: essential hypertension Atrial fibrillation I48.91 Sleep apnea G47.30 Hyperlipidemia E78.5 Pituitary adenoma D35.2
== END 2020-10-19 13:51 | disposition home or self-care (01) | DRG 690 ==
LOC: ED 16:21 → SUATTDRO 19:11 → 3N 19:11
DX: N39.0 Urinary tract infection, site not specified; B96.20 Unspecified Escherichia coli [E. coli] as the cause of diseases classified elsewhere; M19.90 Unspecified osteoarthritis, unspecified site; I48.91 Unspecified atrial fibrillation; N17.9 Acute kidney failure, unspecified; I50.30 Unspecified diastolic (congestive) heart failure; M10.9 Gout, unspecified; D35.2 Benign neoplasm of pituitary gland; R51.9 Headache, unspecified; Z82.3 Family history of stroke; K21.9 Gastro-esophageal reflux disease without esophagitis; I11.0 Hypertensive heart disease with heart failure; I25.10 Atherosclerotic heart disease of native coronary artery without angina pectoris; I95.9 Hypotension, unspecified; J06.9 Acute upper respiratory infection, unspecified